=== PATIENT | female | born 1935 | race Caucasian/White ===

== ENCOUNTER 2024-02-27 14:11 | Outpatient (CLI) | payer MEDICARE, SELFPAY ==
--- NOTE | 2024-02-27 14:30 | ECG_ITS ---
Test Date: 2024-02-27 14:40:03 Measurements Intervals [place] Rate: 66 P: 0 NH: 0 QRS: -48 QRSD: 138 T: 17 QT: 453 QTc: 477 Interpretive Statements SINUS RHYTHM WITH SINUS ARRHYTHMIA WITH FIRST DEGREE AV BLOCK NONDUCTED ATRIAL PREMATURE COMPLEXES RIGHT BUNDLE BRANCH BLOCK LEFT ANTERIOR FASCICULAR BLOCK VOLTAGE CRITERIA FOR LVH ABNORMAL ECG No previous ECG available for comparison Electronically Signed On 02-27-2024 15:07:54 CDT by Oli Iqbal D.O.
== END 2024-02-27 14:12 | disposition home or self-care (01) ==
PROVIDERS: PCP Family Medicine; Visit Provider Nurse Practitioner
DX: I49.8 Other specified cardiac arrhythmias (principal); I44.0 Atrioventricular block, first degree; I49.1 Atrial premature depolarization; I45.2 Bifascicular block; R00.1 Bradycardia, unspecified
CPT/HCPCS: 93005

== ENCOUNTER 2025-02-28 19:59 | Inpatient (IN) | payer MEDICARE, SELFPAY ==
--- NOTE | ~2025-02-28 | XR_ITS ---
Examination: XR hip LT 2V w AP pelvis, XR knee LT 3V, XR femur LT min 2V Clinical History: fall, trauma Comparison: None Technique: 2 views left hip with AP pelvis, 2 views left femur 4 films, 3 views left knee Findings/impression: Left hip with AP pelvis: 1. Left hip prosthesis intact without periprosthetic fracture. 2. No acute pelvic fracture noted. 3. Single view right hip demonstrates prosthesis without periprosthetic fracture. Left femur: 1. No fracture. 2. Peripheral arterial disease. Left knee: 1. Suprapatellar joint effusion. 2. Knee arthroplasty intact without periprosthetic fracture. 3. Otherwise no acute abnormality. Reviewed, dictated and finalized at location R.
--- NOTE | ~2025-02-28 | XR_ITS ---
EXAMINATION: XR knee LT min 4V DATE: 03/03/2025 12:54 INDICATION: Distal left femoral fracture TECHNIQUE: AP, internal and externally rotated oblique, lateral and sunrise views of the left knee were obtained. COMPARISON: CT dated 03/02/25 FINDINGS: Again seen is a noncemented left total knee arthroplasty without patellar resurfacing which appears well seated in near-anatomic alignment. No periprosthetic lucency to suggest loosening. Approximately 8 mm lateral displacement of a fracture involving the lateral nonarticular portion of the lateral femoral condyle. No other fractures identified. Moderate-sized left knee joint effusion. A previously seen layering fat fluid level is no longer appreciated. Soft tissue swelling subcutaneous edema at the lateral aspect of the knee. IMPRESSION: 1. Left total knee arthroplasty with periprosthetic fracture at the distal left femur with 8 mm lateral displacement of the fragment of the nonarticular lateral surface of the lateral femoral condyle. No evident lucency along the interface between the bone and the femoral component of the arthroplasty to suggest loosening. Reviewed, dictated and finalized at location A. IMPRESSION: 1. Left total knee arthroplasty with periprosthetic fracture at the distal left femur with 8 mm lateral displacement of the fragment of the nonarticular later al surface of the lateral femoral condyle. No evident lucency along the interfa ce between the bone and the femoral component of the arthroplasty to suggest lo osening.
--- NOTE | ~2025-02-28 | CT_ITS ---
EXAMINATION: CT lumbar spine wo con COMPARISON: None HISTORY: possible fx TECHNIQUE: Axial images were obtained through the spine without IV contrast. Coronal, sagittal reconstruction images were obtained from the axial views. CT scan performed using dose optimization techniques including the following automated exposure control; adjustment of mA and/or kV; use of iterative reconstruction technique. Automatic exposure control was used to reduce radiation dose. Permanent radiation dose record is archived to PACS. FINDINGS: Mild levoconvex scoliosis. Grade 1 anterolisthesis of L4 on L5, grade 1 retrolisthesis of L5 on S1 with bilateral pedicle screws and rods fixating L5, L4 and L3, the hardware is intact with no lucency around the screws with disc prostheses at these levels. There is severe loss of disc height at L5-S1 and L1-2 as well as L2-3 with moderate to severe canal and foraminal stenosis from disc osteophyte complex and facet hypertrophy. Soft tissues demonstrate cholelithiasis. Trace pleural effusions and infiltrates noted.Large hiatal hernia. Impression: No acute fracture. Severe degenerative changes. Reviewed, dictated and finalized at location P. Impression: No acute fracture. Severe degenerative changes.
--- NOTE | ~2025-02-28 | XR_ITS ---
EXAMINATION: XR chest 2V, 03/01/2025 10:10 CDT HISTORY: Pacemaker lead placement, PLACED 4 DAYS AGO COMPARISON: No comparisons available. Technique: 2 views obtained. Findings: Mild pulmonary venous congestion. No pneumothorax. Mild cardiomegaly. Mediastinal and hilar contours are within normal limits. Bony thorax no acute abnormality. Left pacemaker. Impression: Mild CHF. No pneumothorax Reviewed, dictated and finalized at location P. Impression: Mild CHF. No pneumothorax
--- NOTE | ~2025-02-28 | CT_ITS ---
EXAMINATION: CT LE LT wo con DATE: 03/02/2025 11:54 INDICATION: Trauma TECHNIQUE: High resolution computed tomography (CT) of the left lower limb from above the hip through the proximal calf was performed without intravenous contrast. Additional sagittal and coronal reconstructions were performed. Automated exposure control and iterative reconstruction technique were employed. The dose-length product was 1163.14 mGy-cm. COMPARISON: Radiograph dated 02/28/2025 FINDINGS: Noncemented left total hip arthroplasty a noncemented left total knee arthroplasty, both which appears well seated in near-anatomic alignment with no periprosthetic lucency to suggest loosening or infection. Moderate-sized layering lipohemarthrosis at the left knee consistent with likely fracture with intra-articular extension. There is some increased density suspicious for hemorrhage during cephalad within the intramedullary space of the distal femoral metaphysis suggesting occult periprosthetic fracture of the distal femur. Assessment for fracture is however limited in the immediate vicinity of the knee and hip arthroplasties by dense metallic streak artifact. On axial series 4, image 183 there appears to be 2 cortical lines at the same level along the lateral margin of the femoral condyle which is suspicious for fracture. No other lesions suspicious for fracture identified. Scarring in the subcutaneous tissues of the anterior left pelvis of indeterminate etiology. Coarse calcifications in the uterus likely related to degenerated uterine fibroids. Visualized portion of the bladder and bowels are unremarkable. No pathologically enlarged left pelvic or inguinal lymphadenopathy. IMPRESSION: 1. Moderate sized lipohemarthrosis at the left knee and small amount of intramedullary blood within the distal left femur with suspicion for mildly displaced fracture at the lateral femoral condyle. Assessment is however significantly limited at this location due to metallic streak artifact from the left total knee arthroplasty. Would consider repeat radiographs of the left knee including oblique and sunrise projections. Reviewed, dictated and finalized at location A. IMPRESSION: 1. Moderate sized lipohemarthrosis at the left knee and small amount of intrame dullary blood within the distal left femur with suspicion for mildly displaced fracture at the lateral femoral condyle. Assessment is however significantly li mited at this location due to metallic streak artifact from the left total knee arthroplasty. Would consider repeat radiographs of the left knee including obl ique and sunrise projections.
[2025-02-28 20:04] VITALS: BP 123/58; PULSE 70; RESP 18; TEMP 37.1; O2SAT 93
--- NOTE | 2025-02-28 20:29 | ED.FALL ---
HPI - Fall General Chief Complaint: Fall Stated Complaint: GLF; L knee pain Time Seen by Provider: 02/28/25 20:04 History of Present Illness HPI Narrative: Patient is an 89-year-old female who presents emergency department this evening status post a ground level fall. Patient states that she fell and landed on her left side after tripping over a rug. Did not hit her head, did not lose any consciousness. Patient is complaining of some pain to her right hip/femur/knee otherwise denies any additional injuries or concerns. Related Data Home Medications ?Medication ?Instructions ?Recorded ?Confirmed ?Last Taken ?Type calcium carbonate 500 mg PO TID PRN indigestion 05/17/24 12/22/24 05/17/24 02:55 History 1,000 mg dexlansoprazole 60 mg 60 mg PO BID 05/17/24 12/22/24 Unknown History capsule,biphase delayed release (Dexilant) fluticasone propionate 50 2 spray intranasal DAILY 05/17/24 12/22/24 05/17/24 09:05 History mcg/actuation nasal 2 spray spray,suspension (24 Hour Allergy Relief) latanoprost 0.005 % eye drops 1 drp RIGHT EYE QPM 05/17/24 12/22/24 05/16/24 20:05 History 1 drp Allergies Allergy/AdvReac Type Severity Reaction Status Date / Time No Known Allergies Allergy Verified 08/25/24 13:08 Review of Systems Review of Systems: All systems are reviewed and are negative unless stated otherwise in the HPI. [facility] Past Medical History Medical History Shortness of breath Hypertension Hiatal hernia Glaucoma Fatigue Surgical History Surgical History H/O eye surgery History of back surgery Family History Family History Unknown Cancer Diabetes mellitus Heart disease Social History Social History Smoking status: Never smoker Second hand tobacco smoke exposure: No Alcohol intake: never Substance use: never Substance use type: does not use Do You Feel Safe in your Home?: Yes Lack of Transportation: YES Lack of Food: Never True Current Housing: I Have Housing Concerned About Future Housing: No Difficulty Paying Gas/Electric Bills: No Difficulty Paying for Meds: No Currently Unemployed: YES Education: Bachelor's Degree Difficulty w/ Childcare or Family Care: No Spiritual care concerns: No Exam Narrative: General: Alert, awake, afebrile, in no acute distress. HEENT: PERRL, no rhinorrhea, no post nasal drip, oropharynx clear. Neck: Trachea midline, no JVD, no lymphadenopathy. Cardiovascular: Regular rate and rhythm, no murmurs, rubs or gallops, no peripheral edema. Respiratory: Clear to auscultation bilaterally, no tachypnea, no wheezing, no rhonchi, no rubs, no respiratory distress. Abdomen: Soft, nontender, nondistended, no rebound, no guarding, no peritoneal signs. Musculoskeletal: No joint swelling or deformity specifically to the left lower extremity, normal muscle tone, intact bilateral hip flexors and knee extensors. Skin: No rashes or petechia, no signs of infection. Psychiatric: Alert and oriented, normal behavior and judgment for situation. Neurological: Alert and oriented to person, place, and time. Follows all commands. No focal deficits, speech is clear and fluent. Course Vital Signs Vital signs: Vital Signs Temperature 98.7 F 02/28/25 20:04 Pulse Rate 70 02/28/25 20:04 Respiratory Rate 18 02/28/25 20:04 Blood Pressure 123/58 L 02/28/25 20:04 Pulse Oximetry 93 02/28/25 20:04 Oxygen Delivery Room Air 02/28/25 20:04 Temperature 98.5 F 02/28/25 22:13 Pulse Rate 67 02/28/25 22:13 Respiratory Rate 18 02/28/25 22:13 Blood Pressure 104/56 L 02/28/25 23:36 Pulse Oximetry 94 02/28/25 23:36 Oxygen Delivery Room Air 02/28/25 20:04 MDM - Fall MDM Narrative Medical decision making narrative: The patient was evaluated by myself in the emergency department. History is obtained from patient who is an independent historian and physical exam was performed. External medical records were reviewed at this time. Imaging studies obtained included left hip with AP pelvis, left femur and left knee x-rays which was independently interpreted by me revealing no acute process, which is pending final radiology interpretation. Differential diagnosis considerations include fractures, dislocations, musculoskeletal strain. Comorbidities impacting this visit include none. I have evaluated and discussed social determinants of health with the patient that could potentially impact subsequent diagnosis and treatment plans. On repeat assessment of the patient, reevaluation revealed that the patient is doing well and is in no acute distress. Patient symptoms have improved since she arrived to our emergency department. Patient failed ambulatory trial using a walker, states that she is too weak and giving that her left upper extremity is in a sling, difficult for her to use the walker. Repeat vital signs were all reviewed and noted to be stable. Differential diagnosis and treatment plan were discussed with the patient at bedside. Patient agrees with discussion and after shared medical decision making agrees with admission. All questions were answered to the patient's satisfaction. Case was discussed with the on-call hospitalist Dr. Hester accepted admission for PT/OT as patient is unable to ambulate. Lab Data 02/28/25 23:03 02/28/25 23:03 Labs: Lab Results 02/28/25 Range/Units 23:03 WBC 12.5 H (4.5-10.0) K/mm3 RBC 4.42 (4.2-5.4) M/mm3 Hgb 14.1 (12.0-15.0) g/dL Hct 42.5 (37.0-47.0) % MCV 96.2 (80-100) fl MCH 31.9 (26-34) pg MCHC 33.2 (32-36) g/dl RDW 12.8 (11.5-14.5) % Plt Count 339 (150-375) k/mm3 MPV 10.6 H (7.4-10.4) fl Immature Gran % (Auto) 0.6 H (0-0.5) % Neut % (Auto) 74.2 H (45.5-73.1) % Lymph % (Auto) 10.4 L (18.3-44.2) % [place] % (Auto) 13.2 H (2.6-8.5) % Eos % (Auto) 1.0 (0-4.4) % Baso % (Auto) 0.6 (0.2-1.2) % Lymph # (Auto) 1.29 (0.9-3.2) K/mm3 [place] # (Auto) 1.6 H (0.1-0.6) K/mm3 Eos # (Auto) 0.1 (0-0.3) K/mm3 Baso # (Auto) 0.1 (0.0-0.1) K/mm3 Abs Immat Gran (auto) 0.07 H (0.00-0.031) K/mm3 Absolute Neuts (auto) 9.2 H (1.3-6.7) K/mm3 Absolute Nucleated RBC 0.000 (0.0-0.012) K/mm3 Nucleated RBC % 0.0 (0.0-0.2) % Sodium 124 L (137-145) mmol/L Potassium 4.5 (3.4-5.0) mmol/L Chloride 91 L (98-107) mmol/L Carbon Dioxide 21 L (22-30) mmol/L Anion Gap 12 (4-12) mmol/L BUN 19 H (7-17) mg/dL Creatinine 1.03 H (0.7-1.0) mg/dL Estim Creat Clear Calc 39 ml/min Estimated GFR 51 L (59 - ) Glucose 108 (65-110) mg/dL Calcium 9.9 (8.4-10.2) mg/dL Magnesium 1.8 (1.6-2.3) mg/dL Total Bilirubin 0.9 (0.2-1.3) mg/dL AST 45 H (14-36) U/L ALT 28 (6-35) U/L Alkaline Phosphatase 73 (38-126) U/L Total Protein 7.1 (6.3-8.2) g/dL Albumin 4.0 (3.5-5.1) g/dL Discharge Plan Discharge Clinical Impression: Fall from ground level, Contusion of hip, left Patient Disposition: Still a Patient Condition: Improved Instructions: Fall Prevention for Older Adults (ED) Additional Instructions: Please follow-up with your family doctor within the next 3-5 days. Return to ED if any new or worsening symptoms develop. Patient Language: Korean Prescriptions: No Action loperamide [Anti-Diarrheal (loperamide)] 2 mg tablet 2 mg PO Q6H PRN (Reason: loose stool) Qty: 90 3RF cholestyramine (with sugar) [Questran] 4 gram powder 4 g PO BID Qty: 60 11RF Rx Instructions: administer w/meal; avoid other meds within 1hr before or 4-6hr after dose Dissolve in 8 oz of liquid and drink before a meal latanoprost 0.005 % drops 1 drp RIGHT EYE QPM Rx Instructions: Administer 1 drop into the right eye nightly calcium carbonate 500 mg calcium (1,250 mg) tablet 500 mg PO TID PRN (Reason: indigestion) dexlansoprazole [Dexilant] 60 mg capsule,biphase delayed releas 60 mg PO BID fluticasone propionate [24 Hour Allergy Relief] 50 mcg/actuation spray,suspension 2 spray intranasal DAILY Rx Instructions: administer into each nostril melatonin 3 mg Tablet 9 mg PO HS Qty: 30 0RF atorvastatin 40 mg tablet 40 mg PO HS Qty: 30 0RF brinzolamide [Azopt] 1 % drops,suspension 1 drp RIGHT EYE BID Qty: 30 0RF lisinopril 20 mg tablet 20 mg PO DAILY Qty: 30 0RF clopidogrel 75 mg tablet 75 mg PO DAILY Qty: 30 0RF Rx Instructions: GIVE FOR TOTAL OF 18 DOSES. aspirin 81 mg tablet,delayed release (DR/EC) 81 mg PO DAILY Qty: 30 0RF Follow-up/Referrals: Harms,Long Vásquez M.D. [Primary Care Provider] - 3 Days Time of Disposition: 21:38
--- NOTE | 2025-02-28 22:05 | PC.NURSE ---
Pt stating she is in pain and is having a bad day. Requested pain meds for patient.
[2025-02-28 22:13] VITALS: BP 105/55; PULSE 67; RESP 18; TEMP 36.9; O2SAT 97
[2025-02-28] MEDS: IBUPROFEN 600 MG TABLET PO (22:17)
[2025-02-28] MEDS: ACETAMINOPHEN 500 MG TABLET 1000 MG PO (22:18)
[2025-02-28 23:03] VITALS: BP 109/62; O2SAT 95
[2025-02-28 23:15] LABS: Hematocrit 42.5 % (37.0-47.0); Hemoglobin 14.1 g/dL (12.0-15.0); Immature Granulocyte Percent A 0.6 % (0-0.5); Lymphocytes Absolute Auto 1.29 K/mm3 (0.9-3.2); Mean Corpuscular HGB Conc 33.2 g/dl (32-36); Mean Corpuscular Hemoglobin 31.9 pg (26-34); Mean Corpuscular Volume 96.2 fl (80-100); Nucleated Red Blood Cells Absolute Auto 0.000 K/mm3 (0.0-0.012); Nucleated Red Blood Cells Perc 0.0 % (0.0-0.2); Platelet Count Result 339 k/mm3 (150-375); Red Blood Count 4.42 M/mm3 (4.2-5.4); White Blood Count 12.5 K/mm3 (4.5-10.0)
[2025-02-28 23:32] LABS: Alanine Aminotransferase 28 U/L (6-35); Albumin Level 4.0 g/dL (3.5-5.1); Alkaline Phosphatase 73 U/L (38-126); Anion Gap 12 mmol/L (4-12); Aspartate Amino Transferase 45 U/L (14-36); Bilirubin,Total 0.9 mg/dL (0.2-1.3); Blood Urea Nitrogen 19 mg/dL (7-17); Calcium 9.9 mg/dL (8.4-10.2); Carbon Dioxide 21 mmol/L (22-30); Chloride 91 mmol/L (98-107); Estimated CRCL calculation 39 ml/min; Estimated Glomerular Filt Rate 51; Glucose 108 mg/dL (65-110); Magnesium 1.8 mg/dL (1.6-2.3); Potassium 4.5 mmol/L (3.4-5.0); Sodium 124 mmol/L (137-145); Total Protein 7.1 g/dL (6.3-8.2)
[2025-02-28 23:36] VITALS: BP 104/56; O2SAT 94
[2025-02-28] MEDS: SODIUM CHLORIDE 0.9% IV 1,000 ML 999 ML IV CONT (23:49)
[2025-03-01] VITALS (9 sets, daily range): BP systolic 102–152; BP diastolic 55–73; PULSE 76–107; RESP 18–20; TEMP 36.1–36.6; O2SAT 94–96; BMI 29.7; BMI 10.0
--- NOTE | 2025-03-01 00:21 | ECG_ITS ---
Test Date: 2025-03-01 00:42:10 Measurements Intervals [place] Rate: 87 P: 93 MD: 167 QRS: -53 QRSD: 149 T: 138 QT: 418 QTc: 505 Interpretive Statements SINUS RHYTHM WITH OCCASIONAL SUPRAVENTRICULAR PREMATURE COMPLEXES INTRAVENTRICULAR CONDUCTION DELAY [130+ ms QRS DURATION] INFERIOR MYOCARDIAL INFARCTION , PROBABLY OLD [40+ ms Q WAVE AND/OR ST/T ABNORMALITY IN II/aVF] Electronically Signed On 03-01-2025 06:20:09 CDT by Carlos Manuel Bahkta M.D.
--- NOTE | 2025-03-01 01:02 | PC.NURSE ---
Spoke with the patient's , Ady Rothman, who reported that the pain in her left hip and knee originated during her time at [facility] and was not a result of the fall. He stated that while she was exiting the bathroom and attempted to bear weight, her knee gave way, leading to a subsequent fall.
--- NOTE | 2025-03-01 01:27 | ADMGEN ---
This patient, Daisha Rothman, was admitted to Medical Room 249-01. Patient/family oriented to hospital policies and general routines including ID bracelet, bed and alarms, visiting hours, pain management, procedures, bathroom and other care routines, personal items, smoking policy, room service/diet, and visiting hours. Information on how to activate the Rapid Response Team has been discussed. Patient/Family are encouraged to report perceived risks to care and to ask questions if they do not understand what they are told or what they should do.
[2025-03-01] MEDS: ACETAMINOPHEN 325 MG TABLET 650 MG PO ×2 (02:06→20:40)
[2025-03-01 05:56] LABS: Anion Gap 11 mmol/L (4-12); Blood Urea Nitrogen 21 mg/dL (7-17); Calcium 9.2 mg/dL (8.4-10.2); Carbon Dioxide 20 mmol/L (22-30); Chloride 94 mmol/L (98-107); Estimated CRCL calculation 35 ml/min; Estimated Glomerular Filt Rate 46; Glucose 88 mg/dL (65-110); Potassium 4.3 mmol/L (3.4-5.0); Sodium 125 mmol/L (137-145)
--- NOTE | 2025-03-01 06:10 | PM.IMHP ---
H&P: HPI History of Present Illness Date/Time: 03/01/25 06:10 Chief Complaint: Left leg and hip pain after falling Narrative: Histrionic 89-year-old female with past medical history of recent pacemaker insertion for what sounds like high degree AV block at [facility] 02/27/2025, CVA (2023), vascular dementia, essential hypertension, glaucoma, GERD, IBS with diarrhea and chronic gait instability ambulates with a walker fell at home. The patient tripped over a rug and landed on her left side. She is complaining of ?severe pain? in the left hip and leg. The she reports that the pain hurts from her anterior and lateral thigh all the way down to her toes. She can not not describe the pain to me and states that it just hurts. When the patient was sitting upright she initially cried out when I was touching her lateral hip area around the area of the trochanter and just inferior to the groin. She was even crying out with me just brushing my hand against her leg. Whenever I had the nursing staff tell me reposition her to where she was laying on her side so I could evaluate her lumbar spine I was able to palpate about [address] the patient's leg before even eliciting any pain both lateral and anterior thigh. She denies any back pain or any radiation the pain down her buttock or into her posterior leg. She states that she did hit her head but did not lose consciousness. She is not on blood thinners. She has not had any shortness of breath or chest pain. She has not had cough or congestion. She reports chronic urinary frequency but is not yet produced urine. She reports that she is usually has diarrhea with her irritable bowel syndrome but has not had a bowel movement in a while. She is unable to tell me an exact time frame for when she had her last bowel movement. She denies any abdominal pain. The patient is alert oriented person place and time into the fact that if she fell. But she has difficulty describing timing of other events and has difficulty with word finding. When discussing hospitalizations and when she is seen a physician she is frequently getting her hospitalization for when she had a stroke in 2023 confused with her hospitalization for her pacemaker that was reportedly day before yesterday. She reports that she has not had anything to eat for 2 or 3 days. She reports she has no appetite. She denies any nausea or vomiting. Nursing staff tried to call the patient's for more information but he was also a difficult historian. As such the majority of history was obtained from review of past medical records, external medical records and ER physician report. Review of Systems Review of Systems: Twelve point review of systems was attempted but limited as patient is a poor historian. 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 Hypertension Hiatal hernia Glaucoma Surgical History Surgical History (Updated 03/01/25 @ 06:29 by Naye Hester DO) Status post cataract extraction of both eyes with insertion of intraocular lens H/O eye surgery History of back surgery Family History Family History Unknown Cancer Diabetes mellitus Heart disease Social History Social History (Updated 03/01/25 @ 06:41 by Naye Hester DO) Social History: Code status: DNR/DNI (per patient request) Surrogate decision maker: Smoking status: Never smoker Second hand tobacco smoke exposure: No Alcohol intake: never Substance use: never Substance use type: does not use Do You Feel Safe in your Home?: Yes Lack of Transportation: No Lack of Food: Never True Current Housing: I Have Housing Concerned About Future Housing: No Difficulty Paying Gas/Electric Bills: No Difficulty Paying for Meds: No Currently Unemployed: No Education: Bachelor's Degree Difficulty w/ Childcare or Family Care: No Spiritual care concerns: No Meds Home Medications and Allergies Home Medications ?Medication ?Instructions ?Recorded ?Confirmed ?Type calcium carbonate 500 mg PO TID PRN indigestion 05/17/24 03/01/25 History dexlansoprazole 60 mg 60 mg PO BID 05/17/24 03/01/25 History capsule,biphase delayed release (Dexilant) latanoprost 0.005 % eye drops 1 drp RIGHT EYE QPM 05/17/24 03/01/25 History aspirin 81 mg tablet,delayed 81 mg PO DAILY #30 tabs 05/25/24 03/01/25 Rx release atorvastatin 40 mg tablet 40 mg PO HS #30 tabs 05/25/24 03/01/25 Rx brinzolamide 1 % eye 1 drp RIGHT EYE BID #30 mL 05/25/24 03/01/25 Rx drops,suspension (Azopt) melatonin 3 mg tablet 9 mg (3 x 3 mg) PO HS #30 tabs 05/25/24 03/01/25 Rx loperamide 2 mg tablet 2 mg PO Q6H PRN loose stool #90 08/25/24 03/01/25 Rx (Anti-Diarrheal (loperamide)) tabs cholestyramine (with sugar) 4 gram 4 g PO BID #60 grams 12/23/24 03/01/25 Rx oral powder (Questran) lisinopril 20 mg tablet 10 mg PO DAILY 03/01/25 03/01/25 History Allergies Allergy/AdvReac Type Severity Reaction Status Date / Time No Known Allergies Allergy Verified 08/25/24 13:08 Vital Signs Vital Signs - 24 hr 02/28/25 20:04 02/28/25 22:13 02/28/25 23:03 Temperature 98.7 F 98.5 F Pulse Rate 70 67 Respiratory Rate 18 18 Blood Pressure 123/58 L 105/55 L 109/62 Pulse Oximetry 93 97 95 Oxygen Delivery Room Air 02/28/25 23:36 03/01/25 00:44 03/01/25 01:00 Temperature Pulse Rate Respiratory Rate Blood Pressure 104/56 L 135/73 130/71 Pulse Oximetry 94 96 95 Oxygen Delivery 03/01/25 01:33 03/01/25 04:00 Temperature 97.3 F L 97.6 F Pulse Rate 98 89 Respiratory Rate 20 20 Blood Pressure 102/60 152/60 H Pulse Oximetry 95 96 Oxygen Delivery Exam Narrative: Weight 86.1 kg BMI 29.7 Const: Other: When I arrived to the room patient is snoring quite loudly and soundly, his well-developed well-nourished, appears stated age HENMT: Other: Upper and lower dentures in place, mucous membranes are tacky, no oral pharyngeal erythema Eyes: Other: Pupils are equal and reactive, bilateral lens implants noted, no scleral icterus, no conjunctival pallor Neck: Other: No JVD, no lymphadenopathy Chest: Other: Pacemaker palpated in the left upper chest with surgical glue, no surrounding erythema or warmth Resp: Other: Clear to auscultation bilaterally, no increased work of breathing Cardio: Other: Regular rate, regular rhythm, 2+ bilateral radial pedal pulses, no murmur GI: Other: Soft, nontender, nondistended, positive bowel sounds : Other: Pure wick catheter in place with no urine in the VAC canister Skin: Other: No jaundice, no pallor, varicose veins to the lateral mid thigh on the left leg, no obvious bruising or bleeding to the hip or leg, some scattered bruising to the arms Neuro: Other: Patient is alert oriented person place time and the fact that she fell but she is a poor historian regarding timeline of events, she has expressive aphasia and seems to somewhat frequently substitute some words, she has 3/5 strength on the left and 4/5 strength on right head host/hostess strength she states that she cannot move her left leg at all due to pain with movement but does have intact sensation of all extremities Extrem: Other: No obvious bruising or bleeding she does have surgical scars over the left knee left lateral posterior hip that go along with her history of hip replacement and left knee replacement Psych: Other: Histrionic and anxious but otherwise pleasant and cooperative, fair judgment and insight H&P: Results Labs Labs: Hip x-ray, pelvis x-ray and femur x-ray personally reviewed and interpreted. Radiologic interpretation pending. No acute process bilateral hip replacements noted in appropriate position no obvious periprosthetic fractures, left knee replacement with no evidence of fracture, small suprapatellar effusion question Assessment and Plan Assessment and plan (1) Fall from ground level: Code(s): W18.30XA - Fall on same level, unspecified, initial encounter Status: Acute (2) Contusion of hip, left: Qualifiers: Encounter type: initial encounter Qualified Code(s): S70.02XA - Contusion of left hip, initial encounter Code(s): S70.02XA - Contusion of left hip, initial encounter Status: Acute (3) Vascular dementia: Qualifiers: Dementia severity: mild Dementia behavioral or psychological symptom: with anxiety Qualified Code(s): F01.A4 - Vascular dementia, mild, with anxiety Code(s): F01.50 - Vascular dementia, unspecified severity, without behavioral disturbance, psychotic disturbance, mood disturbance, and anxiety Status: Acute (4) CKD (chronic kidney disease): Code(s): N18.9 - Chronic kidney disease, unspecified Status: Acute (5) Intractable pain: Code(s): R52 - Pain, unspecified Status: Acute Plan Patient has intractable pain in her been thigh after fall but her exam is somewhat variable. I think a lot of the patient's pain may also be associated with some anxiety regarding full. Will give the patient a dose of Toradol 15 mg IV x1. Will provide [place] as needed for severe pain. Will provide ice pack to the lateral hip and knee. Will consult PT and OT for evaluation. Will consult care coordination for assistance as the patient may need rehab placement as it sounds like the patient's may have some difficulties of his own. Will resume the patient's home Patient does have a history of hypertension but blood pressures are within expected target range for patient's age. Will continue patient's home lisinopril. Will resume patient's home GERD and medications for irritable Celia and glaucoma. Patient has been admitted as observation status. MEDICAL DECISION MAKING NARRATIVE -Spoke with the ED provider in detail regarding patient's evaluation, workup and management -Patient seen and examined at bedside -Collaborated with patient's nurse at the bedside in detail and addressed all concerns -Labs, electrolytes, radiology, investigations and test results personally reviewed and interpreted unless otherwise specified -ED/Consult/Nursing/Ancilliary notes on the chart reviewed and appreciated -Spoke with patient at bedside and diagnosis and plan of care was discussed. All questions answered. Quality VTE Prophylaxis VTE prophylaxis: mechanical ordered (SCDs) Hospitalist MIPS Advance Care Plan I have confirmed that the patient's Advanced Care Plan is present, code status is documented, or surrogate decision maker is listed in patient medical record.: Yes Medication Reconciliation I have utilized all available resources to obtain, update and review the patients current medications (includes all prescriptions, OTC, herbals, cannabis, and nutritional supplements).: Yes
[2025-03-01 06:22] LABS: Thyroid Stimulating Hormone Reflex 1.970 uIU/mL (0.465-4.68)
[2025-03-01] MEDS: SODIUM CHLORIDE 0.9% IV 1,000 ML 100 ML IV CONT ×2 (06:30→20:39)
[2025-03-01] MEDS: KETOROLAC 15 MG/ML VIAL (*BKC) IV PUSH (06:36)
[2025-03-01] MEDS: SODIUM CHLORIDE 0.9% IV 1,000 ML 500 ML IV CONT (06:49)
--- NOTE | 2025-03-01 07:27 | PM.IMPN ---
Progress Note: A&P Assessment and Plan (1) Fall from ground level: Code(s): W18.30XA - Fall on same level, unspecified, initial encounter Status: Acute Assessment and Plan: XR L femur: no fracture, peripheral arterial disease XR L hip: Left hip prosthesis intact without periprosthetic fracture. No acute pelvic fracture noted. XR L knee: Suprapatellar joint effusion. Knee arthroplasty intact without periprosthetic fracture. Ground level mechanical fall C/o intractable pain in left thigh Toradol 15mg IV one time dose upon admission PRN norco for pain relief Ice pack to lateral left knee/hip PT/OT evals - max assist x2 w/ bed mobility, further services indicated Consult care coordination regarding possible SNF Consider ortho consult (2) Contusion of hip, left: Qualifiers: Encounter type: initial encounter Qualified Code(s): S70.02XA - Contusion of left hip, initial encounter Code(s): S70.02XA - Contusion of left hip, initial encounter Status: Acute Assessment and Plan: See above (3) Intractable pain: Code(s): R52 - Pain, unspecified Status: Acute Assessment and Plan: See above (4) Acute hyponatremia: Code(s): E87.1 - Hypo-osmolality and hyponatremia Status: Acute Assessment and Plan: Upon admission - Na 124 03/01: Na 125 Unsure of etiology Continue continuous IVF hydration w/ NS Monitor daily labs (5) Hypertension: Code(s): I10 - Essential (primary) hypertension Status: Acute Assessment and Plan: Patient's blood pressure was reviewed on 03/01 Blood pressure remains well controlled Will continue current medications (6) CKD (chronic kidney disease): Code(s): N18.9 - Chronic kidney disease, unspecified Status: Acute Assessment and Plan: Creatinine: 1.13, GFR: 46, BUN: 21 Trend renal function Trend electrolytes, correct as needed (7) Vascular dementia: Qualifiers: Dementia behavioral or psychological symptom: with anxiety Dementia severity: mild Qualified Code(s): F01.A4 - Vascular dementia, mild, with anxiety Code(s): F01.50 - Vascular dementia, unspecified severity, without behavioral disturbance, psychotic disturbance, mood disturbance, and anxiety Status: Acute Subjective Date/time seen: 03/01/25 07:27 Interval history: 89-year-old female with past medical history of recent pacemaker insertion for what sounds like high degree AV block at [facility] 02/27/2025, CVA (2023), vascular dementia, essential hypertension, glaucoma, GERD, IBS with diarrhea and chronic gait instability ambulates with a walker fell at home. 03/01/2025 Patient sitting comfortably in bed at time examination. Denies any chest pain, shortness on breath, nausea/vomiting or abdominal pain. Endorses left knee and left hip pain with movement but at rest feels comfortable. Consult orthopedics regarding persistent knee/hip pain as PT/OT was unable to work with the patient due to extreme levels of pain. Review of Systems Review of Systems: Twelve point review of systems was attempted but limited as patient is a poor historian. Exam Narrative: Weight 86.1 kg BMI 29.7 Const: General: comfortable and no acute distress HENMT: Other: Upper and lower dentures in place, mucous membranes are tacky, no oral pharyngeal erythema Eyes: Other: Pupils are equal and reactive, bilateral lens implants noted, no scleral icterus, no conjunctival pallor Neck: Other: No JVD, no lymphadenopathy Chest: Other: Pacemaker palpated in the left upper chest with surgical glue, no surrounding erythema or warmth Resp: Other: Clear to auscultation bilaterally, no increased work of breathing Cardio: Other: Regular rate, regular rhythm, 2+ bilateral radial pedal pulses, no murmur GI: Other: Soft, nontender, nondistended, positive bowel sounds : Other: Pure wick catheter in place with no urine in the VAC canister Skin: Other: No jaundice, no pallor, varicose veins to the lateral mid thigh on the left leg, no obvious bruising or bleeding to the hip or leg, some scattered bruising to the arms Neuro: Other: Patient is alert oriented person place time and the fact that she fell but she is a poor historian regarding timeline of events, she has expressive aphasia and seems to somewhat frequently substitute some words, she has 3/5 strength on the left and 4/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 on 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 she states that she cannot move her left leg at all due to pain with movement but does have intact sensation of all extremities Extrem: Other: No obvious bruising or bleeding she does have surgical scars over the left knee left lateral posterior hip that go along with her history of hip replacement and left knee replacement Psych: Other: Histrionic and anxious but otherwise pleasant and cooperative, fair judgment and insight Objective Data Vital Signs Vital Signs: Vital Signs - 24 hr 02/28/25 20:04 02/28/25 22:13 02/28/25 23:03 Temperature 98.7 F 98.5 F Pulse Rate 70 67 Respiratory Rate 18 18 Blood Pressure 123/58 L 105/55 L 109/62 Pulse Oximetry 93 97 95 Oxygen Delivery Room Air 02/28/25 23:36 03/01/25 00:44 03/01/25 01:00 Temperature Pulse Rate Respiratory Rate Blood Pressure 104/56 L 135/73 130/71 Pulse Oximetry 94 96 95 Oxygen Delivery 03/01/25 01:33 03/01/25 04:00 Temperature 97.3 F L 97.6 F Pulse Rate 98 89 Respiratory Rate 20 20 Blood Pressure 102/60 152/60 H Pulse Oximetry 95 96 Oxygen Delivery Intake/Output Intake/Output: Intake & Output 02/26/25 02/27/25 02/28/25 03/01/25 23:59 23:59 23:59 23:59 Intake Total 1120 Balance 1120 Meds/Results Medications: Active Medications Generic Name Dose Route Start Last Admin Trade Name Freq PRN Reason Stop Dose Admin Acetaminophen 650 mg 03/01/25 00:26 03/01/25 02:06 Acetaminophen 325 Mg Tablet PO 650 mg Q4H PRN Administration Mild Pain (1-3) or Fever Hydrocodone Bitart/Acetaminophen 1 tab 03/01/25 06:49 Hydrocodone/Acetaminophen (*Crx) 5-325 Mg Tablet PO Q6H PRN Pain Rated 7-10 Aspirin 81 mg 03/01/25 09:00 Aspirin 81 Mg Enteric Tablet PO DAILY OTIS Atorvastatin Calcium 40 mg 03/01/25 21:00 Atorvastatin 40 Mg Tablet PO HS OTIS Brinzolamide 1 drop 03/01/25 09:00 Brinzolamide 1% Ophth Susp 10 Ml RIGHT EYE Q12HR [facility] Calcium Carbonate 500 mg 03/01/25 02:53 Calcium Carbonate (Oscal) 500 Mg Tablet PO TID PRN Indigestion Cholestyramine Resin 4 gm 03/01/25 09:00 Cholestyramine (W/ Sugar) 4 Gm Powd.Pack PO BID [facility] Sodium Chloride 1,000 mls @ 100 mls/hr 03/01/25 06:25 03/01/25 06:30 Normal Saline Iv IV CONT 100 mls/hr .Q10H OTIS Administration Sodium Chloride 1,000 mls @ 500 mls/hr 03/01/25 06:45 03/01/25 06:49 Normal Saline Iv IV CONT 03/01/25 08:44 500 mls/hr .Q2H ONE Administration Latanoprost 1 drop 03/01/25 21:00 Latanoprost 0.005% Op Soln 2.5 Ml Btl RIGHT EYE QHS OTIS Lisinopril 10 mg 03/01/25 09:00 Lisinopril 10 Mg Tablet PO DAILY OTIS Loperamide HCl 2 mg 03/01/25 02:53 Loperamide Hcl 2 Mg Capsule PO Q6H PRN Loose Stool Melatonin 9 mg 03/01/25 21:00 Melatonin 3 Mg Tablet PO HS [facility] Pantoprazole Sodium 40 mg 03/01/25 09:00 Pantoprazole 40 Mg Tablet PO Q12HR [facility] Labs Labs: Laboratory Results - last 24 hr 02/28/25 03/01/25 23:03 04:48 WBC 12.5 H RBC 4.42 Hgb 14.1 Hct 42.5 MCV 96.2 MCH 31.9 MCHC 33.2 RDW 12.8 Plt Count 339 MPV 10.6 H Immature Gran % (Auto) 0.6 H Neut % (Auto) 74.2 H Lymph % (Auto) 10.4 L [place] % (Auto) 13.2 H Eos % (Auto) 1.0 Baso % (Auto) 0.6 Lymph # (Auto) 1.29 [place] # (Auto) 1.6 H Eos # (Auto) 0.1 Baso # (Auto) 0.1 Abs Immat Gran (auto) 0.07 H Absolute Neuts (auto) 9.2 H Absolute Nucleated RBC 0.000 Nucleated RBC % 0.0 Sodium 124 L 125 L Potassium 4.5 4.3 Chloride 91 L 94 L Carbon Dioxide 21 L 20 L Anion Gap 12 11 BUN 19 H 21 H Creatinine 1.03 H 1.13 H Estim Creat Clear Calc 39 35 Estimated GFR 51 L 46 L Glucose 108 88 Calcium 9.9 9.2 Magnesium 1.8 Total Bilirubin 0.9 AST 45 H ALT 28 Alkaline Phosphatase 73 Total Protein 7.1 Albumin 4.0 TSH (Reflex) 1.970 Quality VTE Prophylaxis VTE prophylaxis: mechanical ordered (SCDs)
[2025-03-01 07:52] LABS: Hematocrit 38.4 % (37.0-47.0); Hemoglobin 12.6 g/dL (12.0-15.0); Immature Granulocyte Percent A 0.5 % (0-0.5); Lymphocytes Absolute Auto 1.00 K/mm3 (0.9-3.2); Mean Corpuscular HGB Conc 32.8 g/dl (32-36); Mean Corpuscular Hemoglobin 32.1 pg (26-34); Mean Corpuscular Volume 98.0 fl (80-100); Nucleated Red Blood Cells Absolute Auto 0.000 K/mm3 (0.0-0.012); Nucleated Red Blood Cells Perc 0.0 % (0.0-0.2); Platelet Count Result 297 k/mm3 (150-375); Red Blood Count 3.92 M/mm3 (4.2-5.4); White Blood Count 12.7 K/mm3 (4.5-10.0)
[2025-03-01] MEDS: CHOLESTYRAMINE (W/ SUGAR) 4 GM POWD.PACK PO (09:17)
[2025-03-01] MEDS: PANTOPRAZOLE 40 MG TABLET PO ×2 (09:17→20:40)
[2025-03-01] MEDS: HYDROcodone/acetaminophen (*CRX) 5-325 MG TABLET 1 TAB PO ×2 (09:17→16:12)
[2025-03-01] MEDS: CALCIUM CARBONATE (OSCAL) 500 MG TABLET PO (09:17)
[2025-03-01] MEDS: ASPIRIN 81 MG ENTERIC TABLET PO (09:17)
[2025-03-01] MEDS: BRINZOLAMIDE 1% OPHTH SUSP 10 ML 1 DROP RIGHT EYE ×2 (09:18→20:43)
[2025-03-01 16:03] LABS: Add Urine Microscopic? YES; Appearance Urine Cloudy (Clear); Glucose Urine UA Negative (Negative); Leukocyte Esterase Ur Negative LEU/UL (Negative); Nitrate Urine Negative (Negative); Specific Grav Ur 1.019 (1.001-1.035)
[2025-03-01] MEDS: MAGNESIUM OXIDE 200 MG TABLET PO (20:40)
[2025-03-01] MEDS: ATORVASTATIN 40 MG TABLET PO (20:40)
[2025-03-01] MEDS: MELATONIN 3 MG TABLET 9 MG PO (20:40)
[2025-03-01] MEDS: LATANOPROST 0.005% OP SOLN 2.5 ML BTL 1 DROP RIGHT EYE (20:43)
[2025-03-02] VITALS (8 sets, daily range): BP systolic 102–176; BP diastolic 48–90; PULSE 78–100; RESP 16–24; TEMP 36.3–37.2; O2SAT 90–97
[2025-03-02] MEDS: HYDROcodone/acetaminophen (*CRX) 5-325 MG TABLET 1 TAB PO ×3 (04:31→18:03)
--- NOTE | 2025-03-02 07:37 | P.PNIM_ITS ---
Progress Note: A&P Assessment and Plan (1) Fall from ground level: Code(s): W18.30XA - Fall on same level, unspecified, initial encounter Status: Acute Assessment and Plan: * XR L femur: no fracture, peripheral arterial disease * XR L hip: Left hip prosthesis intact without periprosthetic fracture. No acute pelvic fracture noted. * XR L knee: Suprapatellar joint effusion. Knee arthroplasty intact without periprosthetic fracture. * Ground level mechanical fall * C/o intractable pain in left thigh * Toradol 15mg IV one time dose upon admission * PRN norco for pain relief * Ice pack to lateral left knee/hip * PT/OT evals - max assist x2 w/ bed mobility, further services indicated * Consult care coordination regarding possible SNF * Orthopedics consult * Recommend left knee/hip CT scan, lumbar spine CT * Determine weight-bearing status after this * Pain management * Lower extremity CT: Moderate sized lipohemarthrosis at the left knee and small amount of intramedullary blood within the distal left femur with suspicion for mildly displaced fracture at the lateral femoral condyle. Assessment is however significantly limited at this location due to metallic streak artifact from the left total knee arthroplasty. Would consider repeat radiographs of the left knee including oblique and sunrise projections. * Lumbar spine CT: No acute fracture, severe degenerative changes * Will get repeat left knee CT scan with oblique and sunrise right projections (2) Contusion of hip, left: Qualifiers: Encounter type: initial encounter Qualified Code(s): S70.02XA - Contusion of left hip, initial encounter Code(s): S70.02XA - Contusion of left hip, initial encounter Status: Acute Assessment and Plan: * See above (3) Intractable pain: Code(s): R52 - Pain, unspecified Status: Acute Assessment and Plan: * See above (4) Acute hyponatremia: Code(s): E87.1 - Hypo-osmolality and hyponatremia Status: Acute Assessment and Plan: * Upon admission - Na 124 * 03/02: Na 124 * Unsure of etiology * Continue continuous IVF hydration w/ NS * Monitor daily labs * Nephrology consult (5) Hypertension: Code(s): I10 - Essential (primary) hypertension Status: Acute Assessment and Plan: * Patient's blood pressure was reviewed on 03/01 * Blood pressure remains well controlled * Will continue current medications (6) CKD (chronic kidney disease): Code(s): N18.9 - Chronic kidney disease, unspecified Status: Acute Assessment and Plan: * Creatinine: 1.13, GFR: 46, BUN: 21 * Trend renal function * Trend electrolytes, correct as needed (7) Vascular dementia: Qualifiers: Dementia behavioral or psychological symptom: with anxiety Dementia severity: mild Qualified Code(s): F01.A4 - Vascular dementia, mild, with anxiety Code(s): F01.50 - Vascular dementia, unspecified severity, without behavioral disturbance, psychotic disturbance, mood disturbance, and anxiety Status: Acute Subjective Date/time seen: 03/02/25 07:37 Interval history: 89-year-old female with past medical history of recent pacemaker insertion for what sounds like high degree AV block at [facility] 02/27/2025, CVA (2023), vascular dementia, essential hypertension, glaucoma, GERD, IBS with diarrhea and chronic gait instability ambulates with a walker fell at home. 03/02/2025 Patient sitting comfortably in bed at time examination. Denies any chest pain, shortness on breath, nausea/vomiting or abdominal pain. Orthopedics consulted, recommend CT of the left extremity/hip. Continue PT/OT - recommend SNF . Review of Systems Review of Systems: Twelve point review of systems was attempted but limited as patient is a poor historian. Exam Narrative: Weight 86.1 kg BMI 29.7 Const: General: comfortable and no acute distress Other: When I arrived to the room patient is snoring quite loudly and soundly, his well-developed well-nourished, appears stated age HENMT: Other: Upper and lower dentures in place, mucous membranes are tacky, no oral pharyngeal erythema Eyes: Other: Pupils are equal and reactive, bilateral lens implants noted, no scleral icterus, no conjunctival pallor Neck: Other: No JVD, no lymphadenopathy Chest: Other: Pacemaker palpated in the left upper chest with surgical glue, no surrounding erythema or warmth Resp: Other: Clear to auscultation bilaterally, no increased work of breathing Cardio: Other: Regular rate, regular rhythm, 2+ bilateral radial pedal pulses, no murmur GI: Other: Soft, nontender, nondistended, positive bowel sounds : Other: Pure wick catheter in place with no urine in the VAC canister Skin: Other: No jaundice, no pallor, varicose veins to the lateral mid thigh on the left leg, no obvious bruising or bleeding to the hip or leg, some scattered bruising to the arms Neuro: Other: Patient is alert oriented person place time and the fact that she fell but she is a poor historian regarding timeline of events, she has expressive aphasia and seems to somewhat frequently substitute some words, she has 3/5 strength on the left and 4/5 strength on right clinical education coordinator strength she states that she cannot move her left leg at all due to pain with movement but does have intact sensation of all extremities Extrem: Other: No obvious bruising or bleeding she does have surgical scars over the left knee left lateral posterior hip that go along with her history of hip replacement and left knee replacement Psych: Other: Histrionic and anxious but otherwise pleasant and cooperative, fair judgment and insight Objective Data Vital Signs Vital Signs: Vital Signs - 24 hr 03/01/25 08:00 03/01/25 09:15 03/01/25 11:20 Temperature 97.7 F Pulse Rate 85 Respiratory Rate 18 Blood Pressure 143/73 H Pulse Oximetry 96 Oxygen Delivery Room Air Room Air Fraction of Inspired Oxygen 03/01/25 11:43 03/01/25 12:00 03/01/25 16:00 Temperature 97.9 F 97 F L Pulse Rate 77 76 Respiratory Rate 18 18 Blood Pressure 143/55 H 135/66 Pulse Oximetry 94 95 Oxygen Delivery Room Air Fraction of Inspired Oxygen 03/01/25 20:00 03/01/25 20:00 03/01/25 21:30 Temperature 97.7 F Pulse Rate 76 107 H 80 Respiratory Rate 18 20 Blood Pressure 152/56 H Pulse Oximetry 95 95 95 Oxygen Delivery Room Air Room Air Fraction of Inspired Oxygen 21 03/02/25 00:00 03/02/25 04:00 Temperature 98.1 F 98.1 F Pulse Rate 82 100 Respiratory Rate 16 24 H Blood Pressure 149/48 H 168/63 H Pulse Oximetry 97 94 Oxygen Delivery Fraction of Inspired Oxygen Intake/Output Intake/Output: Intake & Output 02/27/25 02/28/25 03/01/25 03/02/25 23:59 23:59 23:59 23:59 Intake Total 3840 140 Output Total 150 850 Balance 3690 -710 Meds/Results Medications: Active Medications Generic Name Dose Route Start Last Admin Trade Name Freq PRN Reason Stop Dose Admin Acetaminophen 650 mg 03/01/25 00:26 03/01/25 20:40 Acetaminophen 325 Mg Tablet PO 650 mg Q4H PRN Administration Mild Pain (1-3) or Fever Hydrocodone Bitart/Acetaminophen 1 tab 03/01/25 06:49 03/02/25 04:31 Hydrocodone/Acetaminophen (*Crx) 5-325 Mg Tablet PO 1 tab Q6H PRN Administration Pain Rated 7-10 Ascorbic Acid 1,000 mg 03/02/25 09:00 Ascorbic Acid 500 Mg Tablet PO QAM OTIS Aspirin 81 mg 03/01/25 09:00 03/01/25 09:17 Aspirin 81 Mg Enteric Tablet PO 81 mg DAILY OTIS Administration Atorvastatin Calcium 40 mg 03/01/25 21:00 03/01/25 20:40 Atorvastatin 40 Mg Tablet PO 40 mg HS OTIS Administration Brinzolamide 1 drop 03/01/25 09:00 03/01/25 20:43 Brinzolamide 1% Ophth Susp 10 Ml RIGHT EYE 1 drop Q12HR OTIS Administration Calcium Carbonate 500 mg 03/01/25 13:22 Calcium Carbonate (Tums) 500 Mg (200 Mg Elemental) PO TID PRN Indigestion Cholestyramine Resin 4 gm 03/01/25 09:00 03/01/25 16:15 Cholestyramine (W/ Sugar) 4 Gm Powd.Pack PO Not Given BID OTIS Fluticasone Propionate 2 spray 03/02/25 09:00 Fluticasone Propionate 0.05% Na Spr 16 Gm Btl (*Bkc) NASAL DAILY OTIS Sodium Chloride 1,000 mls @ 100 mls/hr 03/01/25 06:25 03/01/25 20:39 Normal Saline Iv IV CONT 100 mls/hr .Q10H OTIS Administration Latanoprost 1 drop 03/01/25 21:00 03/01/25 20:43 Latanoprost 0.005% Op Soln 2.5 Ml Btl RIGHT EYE 1 drop QHS OTIS Administration Lisinopril 10 mg 03/01/25 09:00 03/01/25 09:17 Lisinopril 10 Mg Tablet PO 10 mg DAILY TOIS Administration Loperamide HCl 2 mg 03/01/25 02:53 Loperamide Hcl 2 Mg Capsule PO Q6H PRN Loose Stool Magnesium Oxide 200 mg 03/01/25 21:00 03/01/25 20:40 Magnesium Oxide 200 Mg Tablet PO 200 mg HS OTIS Administration Melatonin 9 mg 03/01/25 21:00 03/01/25 20:40 Melatonin 3 Mg Tablet PO 9 mg HS OTIS Administration Non-Formulary Medication 1 each 03/01/25 13:20 Nonformulary Nutritional Supplement XX 03/02/25 13:19 PRN PRN PROTOCOL Non-Formulary Medication 1 each 03/01/25 13:20 Nonformulary Nutritional Supplement XX 03/02/25 13:19 PRN PRN PROTOCOL Pantoprazole Sodium 40 mg 03/01/25 09:00 03/01/25 20:40 Pantoprazole 40 Mg Tablet PO 40 mg Q12HR OTIS Administration Vitamin B Complex 1 cap 03/01/25 13:20 03/01/25 13:20 Vitamin B Complex Capsule PO Not Given 1200 OTIS Vitamin E 1 unit 03/01/25 13:20 03/01/25 13:20 Vitamin E 400 Unit Capsule PO Not Given DAILY OTIS Radiology Results: ITS Impressions Chest X-Ray 03/01/25 10:28 Impression: Mild CHF. No pneumothorax Labs Labs: Laboratory Results - last 24 hr 03/01/25 03/01/25 04:48 15:47 WBC 12.7 H RBC 3.92 L Hgb 12.6 Hct 38.4 MCV 98.0 MCH 32.1 MCHC 32.8 RDW 12.8 Plt Count 297 MPV 11.4 H Immature Gran % (Auto) 0.5 Neut % (Auto) 76.6 H Lymph % (Auto) 7.9 L Charlton % (Auto) 13.2 H Eos % (Auto) 1.2 Baso % (Auto) 0.6 Lymph # (Auto) 1.00 Charlton # (Auto) 1.7 H Eos # (Auto) 0.2 Baso # (Auto) 0.1 Abs Immat Gran (auto) 0.07 H Absolute Neuts (auto) 9.8 H Absolute Nucleated RBC 0.000 Nucleated RBC % 0.0 Urine Color Dark yellow Urine Appearance Cloudy H Urine pH 5.0 Ur Specific Arp 1.019 Urine Protein 1+ H Urine Glucose (UA) Negative Urine Ketones Trace H Ur Blood (Man) Negative Urine Nitrate Negative Urine Bilirubin 1+ H Urine Urobilinogen 0.2 Leukocyte Esterase Rfl Negative Urine RBC 0-2 Urine WBC 0-5 Ur Squamous Epith Cells Few Urine Bacteria None seen Urine Casts 3-5 Quality VTE Prophylaxis VTE prophylaxis: mechanical ordered (SCDs)
[2025-03-02 07:48] LABS: Hematocrit 33.8 % (37.0-47.0); Hemoglobin 11.1 g/dL (12.0-15.0); Immature Granulocyte Percent A 0.5 % (0-0.5); Lymphocytes Absolute Auto 1.01 K/mm3 (0.9-3.2); Mean Corpuscular HGB Conc 32.8 g/dl (32-36); Mean Corpuscular Hemoglobin 32.0 pg (26-34); Mean Corpuscular Volume 97.4 fl (80-100); Nucleated Red Blood Cells Absolute Auto 0.000 K/mm3 (0.0-0.012); Nucleated Red Blood Cells Perc 0.0 % (0.0-0.2); Platelet Count Result 277 k/mm3 (150-375); Red Blood Count 3.47 M/mm3 (4.2-5.4); White Blood Count 12.8 K/mm3 (4.5-10.0)
[2025-03-02 08:10] LABS: Alanine Aminotransferase 22 U/L (6-35); Albumin Level 3.1 g/dL (3.5-5.1); Alkaline Phosphatase 68 U/L (38-126); Anion Gap 7 mmol/L (4-12); Aspartate Amino Transferase 42 U/L (14-36); Bilirubin,Total 0.8 mg/dL (0.2-1.3); Blood Urea Nitrogen 17 mg/dL (7-17); Calcium 8.3 mg/dL (8.4-10.2); Carbon Dioxide 21 mmol/L (22-30); Chloride 96 mmol/L (98-107); Estimated CRCL calculation 56 ml/min; Estimated Glomerular Filt Rate > 60; Glucose 90 mg/dL (65-110); Potassium 4.1 mmol/L (3.4-5.0); Sodium 124 mmol/L (137-145); Total Protein 5.9 g/dL (6.3-8.2)
[2025-03-02] MEDS: ASCORBIC ACID 500 MG TABLET 1000 MG PO (08:24)
[2025-03-02] MEDS: PANTOPRAZOLE 40 MG TABLET PO ×2 (08:24→20:58)
[2025-03-02] MEDS: ASPIRIN 81 MG ENTERIC TABLET PO (08:24)
[2025-03-02] MEDS: BRINZOLAMIDE 1% OPHTH SUSP 10 ML 1 DROP RIGHT EYE ×2 (08:25→21:01)
[2025-03-02] MEDS: VITAMIN E 400 UNIT CAPSULE PO ×2 (08:41→08:45)
[2025-03-02] MEDS: CHOLESTYRAMINE (W/ SUGAR) 4 GM POWD.PACK PO (10:24)
--- NOTE | 2025-03-02 11:06 | PM.CNOR ---
Assessment and Plan Assessment and plan (1) Contusion of hip, left: Qualifiers: Encounter type: initial encounter Qualified Code(s): S70.02XA - Contusion of left hip, initial encounter Code(s): S70.02XA - Contusion of left hip, initial encounter Status: Acute Plan The patient is an 89-year-old female who presents today with left hip and left knee pain with radiation of the same pain all the way down to her ankle. The patient was admitted on March 012024 with pain after falling at home. She was trying to go from her bathroom to the living room and tripped over the threshold and landed onto her left buttock. She has had bilateral total hip replacements and bilateral total knee replacements under the past. She has had no problems with this recently until her recent fall. She was admitted for cardiac issues, and the workup so far has been negative. She does have also a significant history for lumbar spine fusion surgery done in the past. She's had no pain and no problems with this until her fall with regards to pain into her left hip, left knee, and radiates down into her left ankle. X-ray evaluation of the left hip as well as the left knee were negative for fractures. Implants appear to be in good position. Based on my physical exam today, this patient has findings that are consistent with radiculopathy. However, she does have significant effusion into the left knee. She is tender to palpation on most parts of her left lower extremity, and she is unable to move her left leg without significant pain radiating down into her ankle. She's also somewhat tender over her lumbar spine, and I was able to reproduce the radiation of pain simply by palpation of her paraspinal musculature on the left side with her lumbar spine palpation. Treatment recommendation at this point is to rule out periprosthetic fracture. I would recommend a left knee CT scan and a left hip CT scan as well as a lumbar spine CT scan. We will determine her weight-bearing status after this. At this point in time, it is a matter of pain management. History of Present Illness HPI Consult date: 03/02/25 Chief complaint: Left Knee and Left Hip Pain Narrative: The patient is an 89-year-old female who presents today with left hip and left knee pain with radiation of the same pain all the way down to her ankle. The patient was admitted on March 012024 with pain after falling at home. She was trying to go from her bathroom to the living room and tripped over the threshold and landed onto her left buttock. She has had bilateral total hip replacements and bilateral total knee replacements under the past. She has had no problems with this recently until her recent fall. She was admitted for cardiac issues, and the workup so far has been negative. She does have also a significant history for lumbar spine fusion surgery done in the past. She's had no pain and no problems with this until her fall with regards to pain into her left hip, left knee, and radiates down into her left ankle. X-ray evaluation of the left hip as well as the left knee were negative for fractures. Implants appear to be in good position. Based on my physical exam today, this patient has findings that are consistent with radiculopathy. However, she does have significant effusion into the left knee. She is tender to palpation on most parts of her left lower extremity, and she is unable to move her left leg without significant pain radiating down into her ankle. She's also somewhat tender over her lumbar spine, and I was able to reproduce the radiation of pain simply by palpation of her paraspinal musculature on the left side with her lumbar spine palpation. Treatment recommendation at this point is to rule out paraprosthetic fracture. I would recommend a left knee CT scan and a left hip CT scan as well as a lumbar spine CT scan. We will determine her weight-bearing status after this. At this point in time, it is a matter of pain management. 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 Hypertension Hiatal hernia Glaucoma Surgical History Surgical History (Updated 03/01/25 @ 06:29 by Naye Hester DO) Status post cataract extraction of both eyes with insertion of intraocular lens H/O eye surgery History of back surgery Family History Family History Unknown Cancer Diabetes mellitus Heart disease Social History Social History (Updated 03/01/25 @ 06:41 by JUNG Chen Social History: Code status: DNR/DNI (per patient request) Surrogate decision maker: Smoking status: Never smoker Second hand tobacco smoke exposure: No Alcohol intake: never Substance use: never Substance use type: does not use Do You Feel Safe in your Home?: Yes Lack of Transportation: No Lack of Food: Never True Current Housing: I Have Housing Concerned About Future Housing: No Difficulty Paying Gas/Electric Bills: No Difficulty Paying for Meds: No Currently Unemployed: No Education: Bachelor's Degree Difficulty w/ Childcare or Family Care: No Spiritual care concerns: No Meds Home Medications and Allergies Home Medications ?Medication ?Instructions ?Recorded ?Confirmed ?Type calcium carbonate 500 mg PO TID PRN indigestion 05/17/24 03/01/25 History dexlansoprazole 60 mg 60 mg PO BID 05/17/24 03/01/25 History capsule,biphase delayed release (Dexilant) latanoprost 0.005 % eye drops 1 drp RIGHT EYE QPM 05/17/24 03/01/25 History aspirin 81 mg tablet,delayed 81 mg PO DAILY #30 tabs 05/25/24 03/01/25 Rx release atorvastatin 40 mg tablet 40 mg PO HS #30 tabs 05/25/24 03/01/25 Rx brinzolamide 1 % eye 1 drp RIGHT EYE BID #30 mL 05/25/24 03/01/25 Rx drops,suspension (Azopt) melatonin 3 mg tablet 9 mg (3 x 3 mg) PO HS #30 tabs 05/25/24 03/01/25 Rx loperamide 2 mg tablet 2 mg PO Q6H PRN loose stool #90 08/25/24 03/01/25 Rx (Anti-Diarrheal (loperamide)) tabs cholestyramine (with sugar) 4 gram 4 g PO BID #60 grams 12/23/24 03/01/25 Rx oral powder (Questran) ascorbic acid (vitamin C) 1,000 mg 1 g PO 1200 03/01/25 03/01/25 History capsule calcium citrate 500 mg (2,376 mg) 500 mg PO 1200 03/01/25 03/01/25 History effervescent tablet flaxseed oil 1,000 mg capsule 1,000 mg PO HS 03/01/25 03/01/25 History fluticasone propionate 50 2 spray intranasal DAILY 03/01/25 03/01/25 History mcg/actuation nasal spray,suspension lisinopril 20 mg tablet 10 mg PO DAILY 03/01/25 03/01/25 History magnesium 200 mg tablet 300 mg PO HS 03/01/25 03/01/25 History potassium 99 mg tablet 99 mg PO DAILY 03/01/25 03/01/25 History vit A 300 mcg-C 200 mg-E 27 1 tablet PO BID 03/01/25 03/01/25 History fa-luqzqcmj-vfzazp-lutein tablet vitamin B complex 1 tablet PO 1200 03/01/25 03/01/25 History vitamin E 268 mg (400 unit) capsule 268 mg PO DAILY 03/01/25 03/01/25 History Allergies Allergy/AdvReac Type Severity Reaction Status Date / Time No Known Allergies Allergy Verified 08/25/24 13:08 Vital Signs Vital Signs - 24 hr 03/01/25 11:20 03/01/25 11:43 03/01/25 12:00 Temperature 36.6 C Pulse Rate 77 Respiratory Rate 18 Blood Pressure 143/55 H Pulse Oximetry 94 Oxygen Delivery Room Air Room Air Fraction of Inspired Oxygen 03/01/25 16:00 03/01/25 20:00 03/01/25 20:00 Temperature 36.1 C L 36.5 C Pulse Rate 76 76 107 H Respiratory Rate 18 18 20 Blood Pressure 135/66 152/56 H Pulse Oximetry 95 95 95 Oxygen Delivery Room Air Fraction of Inspired Oxygen 03/01/25 21:30 03/02/25 00:00 03/02/25 04:00 Temperature 36.7 C 36.7 C Pulse Rate 80 82 100 Respiratory Rate 16 24 H Blood Pressure 149/48 H 168/63 H Pulse Oximetry 95 97 94 Oxygen Delivery Room Air Fraction of Inspired Oxygen 21 03/02/25 07:51 03/02/25 08:00 03/02/25 08:20 Temperature 37.2 C Pulse Rate 98 96 Respiratory Rate 22 H Blood Pressure 138/53 L 176/90 H Pulse Oximetry 95 Oxygen Delivery Room Air Fraction of Inspired Oxygen Exam Narrative: physical exam today, this patient has findings that are consistent with radiculopathy. However, she does have significant effusion into the left knee. She is tender to palpation on most parts of her left lower extremity, and she is unable to move her left leg without significant pain radiating down into her ankle. She's also somewhat tender over her lumbar spine, and I was able to reproduce the radiation of pain simply by palpation of her paraspinal musculature on the left side with her lumbar spine palpation. Const: General: cooperative, healthy appearing, well developed, alert and awake Nutritional Appearance: average body habitus Orientation/consciousness: oriented to person, oriented to place and oriented to time Results Labs 03/02/25 07:39 03/02/25 07:39 Labs: Abnormal lab results 03/01/25 03/02/25 Range/Units 15:47 07:39 WBC 12.8 H (4.5-10.0) K/mm3 RBC 3.47 L (4.2-5.4) M/mm3 Hgb 11.1 L (12.0-15.0) g/dL Hct 33.8 L (37.0-47.0) % Neut % (Auto) 73.4 H (45.5-73.1) % Lymph % (Auto) 7.9 L (18.3-44.2) % Charlton % (Auto) 15.5 H (2.6-8.5) % Charlton # (Auto) 2.0 H (0.1-0.6) K/mm3 Abs Immat Gran (auto) 0.07 H (0.00-0.031) K/mm3 Absolute Neuts (auto) 9.4 H (1.3-6.7) K/mm3 Sodium 124 L (137-145) mmol/L Chloride 96 L (98-107) mmol/L Carbon Dioxide 21 L (22-30) mmol/L Creatinine 0.69 L (0.7-1.0) mg/dL Calcium 8.3 L (8.4-10.2) mg/dL AST 42 H (14-36) U/L Total Protein 5.9 L (6.3-8.2) g/dL Albumin 3.1 L (3.5-5.1) g/dL Urine Appearance Cloudy H (Clear) Urine Protein 1+ H (Negative) mg/dL Urine Ketones Trace H (Negative) mg/dL Urine Bilirubin 1+ H (Negative) H & H 02/28/25 03/01/25 03/02/25 Range/Units 23:03 04:48 07:39 Hgb 14.1 12.6 11.1 L (12.0-15.0) g/dL Hct 42.5 38.4 33.8 L (37.0-47.0) % All other labs normal.
--- NOTE | 2025-03-02 11:22 | PM.CNNEP ---
Assessment and Plan Assessment and plan (1) Hyponatremia: Code(s): E87.1 - Hypo-osmolality and hyponatremia Status: Acute Assessment and Plan: as noted on admission from review of recent hospitalization at [facility], sodium was progressively worsening prior to leaving AMA 138mmol/L on admission (02/20/25) then 137 --> 133 --> 130 --> 129 --> and then 126 (on 02/28/25) possibly due to ongoing/steady free water intake but diminished/poor solid food intake risk factors for low sodium pain pain medications/narcotics PPI use increased free water intake check TSH, cortisol, serum/urine osmolality, and SPEP/UPEP follow I/Os and consider free water restriction may need to consider salt tabs depending on oral intake follow trend of sodium levels (2) Fall from ground level: Code(s): W18.30XA - Fall on same level, unspecified, initial encounter Status: Acute Assessment and Plan: ground level mechanical fall as noted on admission imaging to date noted (03/02): XR L hip: Left hip prosthesis intact without periprosthetic fracture; no acute pelvic fracture noted XR L femur: No fracture but noted peripheral arterial disease XR L knee: Suprapatellar joint effusion; knee arthroplasty intact without periprosthetic fracture Lumbar spine CT: No acute fracture, severe degenerative changes continues with intractable pain in left thigh ongoing PT/OT may need placement (3) 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: Code(s): M97.12XA - 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, initial encounter Status: Acute Assessment and Plan: significant knee pain s/p fall imaging noted lower extremity CT: moderate sized lipohemarthrosis at the left knee and small amount of intramedullary blood within the distal left femur with suspicion for mildly displaced fracture at the lateral femoral condyle; assessment is however significantly limited at this location due to metallic streak artifact from the left total knee arthroplasty Orthopedic Surgery following: repeat plain radiographs knee immobilizer NWB LLE continue nonoperative management for now. pain control (4) Hypertension: Code(s): I10 - Essential (primary) hypertension Status: Acute Assessment and Plan: reasonable control some fluctuations due to pain follow trend of hemodynamics I will continue to follow the patient with you while she remains hospitalized and make further recommendations as deemed necessary. Thank you for allowing me to participate in the care of this patient. History of Present Illness Reason for Consult Consult date: 03/02/25 Reason for consult: hyponatremia Chief Complaint Chief complaint: Left Knee and Left Hip Pain History of Present Illness Narrative: A great majority of the history I have obtained is from review of the electronic medical record as well as discussion with the physician/nurses involved in the patient's care as the patient is a somewhat poor historian and there is no other family available for may to talk to. The patient is a 9-year-old female with a past medical history as outlined below presented to [facility] Emergency Room status post fall. The patient apparently tripped over a rug salt in the fall and landed on her left side. Since this fall, she has been complaining severe intractable pain in the left hip and left leg. His difficult for the patient to elaborate on the extent and significance of her pain. There is no reported head trauma or loss of consciousness following the fall. She denies any other symptoms regard to chest pain, shortness of breath, dizziness, lightheadedness, palpitations, abdominal pain. Given the severity of the pain in her left hip and leg following this fall she presented to the emergency room for further assessment. Workup and evaluation emergency room demonstrated the patient be hemodynamically stable and afebrile but in [id number] distress secondary to pain. Her physical exam did not demonstrate any significant trauma to her left lower extremity or any neurological compromise. Routine blood test early significant for a mildly elevated white blood cell count, sodium level of 124, and a creatinine of 1.03 mg/dL. Imaging of her left lower extremity did not demonstrate any acute pathology or fractures. Pain control was initiated which was successful but the patient was still unable to ambulate and it was felt that she may need placement And further physical and occupational therapy. For this purpose, the patient was admitted to the hospital for further evaluation and therapy. Next Since her admission, the patient's sodium level has remained on the lower side of normal but does not appear to have acutely worsened. She has been seen in consultation by Orthopedic surgery with recommendations for further CT imaging to ensure there is no other pathology to explain her left lower extremity discomfort. Renal consultation was requested due to her acute hyponatremia. It should be noted the patient was just recently discharged from [facility] after a recent pacemaker placement. From review these records her sodium level had been down trending during her hospitalization there and even the day of discharge although she technically was not dicharge as she apparently left against medical advice. Due to her leaving against medical advice, would appear that further investigation with regard to her acute hypernatremia was not done. Her sodium level had down trended to 126 millimoles per L on the day she [facility]. In spite of low sodium level, she does not appear to be symptomatic with regard to this issue. Currently the time my evaluation she appears in no acute distress. Review of Systems Review of Systems: As per HPI. 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 Hypertension Hiatal hernia Glaucoma Schatzki's ring GERD (gastroesophageal reflux disease) Irritable bowel syndrome with diarrhea Surgical History Surgical History (Updated 03/01/25 @ 06:29 by Naye Hester DO) Status post cataract extraction of both eyes with insertion of intraocular lens H/O eye surgery History of back surgery Family History Family History Unknown Cancer Diabetes mellitus Heart disease Social History Social History (Updated 03/01/25 @ 06:41 by Naye Hester DO) Social History: Code status: DNR/DNI (per patient request) Surrogate decision maker: Smoking status: Never smoker Second hand tobacco smoke exposure: No Alcohol intake: never Substance use: never Substance use type: does not use Do You Feel Safe in your Home?: Yes Lack of Transportation: No Lack of Food: Never True Current Housing: I Have Housing Concerned About Future Housing: No Difficulty Paying Gas/Electric Bills: No Difficulty Paying for Meds: No Currently Unemployed: No Education: Bachelor's Degree Difficulty w/ Childcare or Family Care: No Spiritual care concerns: No Meds Home Medications and Allergies Home Medications ?Medication ?Instructions ?Recorded ?Confirmed ?Type calcium carbonate 500 mg PO TID PRN indigestion 05/17/24 03/01/25 History dexlansoprazole 60 mg 60 mg PO BID 05/17/24 03/01/25 History capsule,biphase delayed release (Dexilant) latanoprost 0.005 % eye drops 1 drp RIGHT EYE QPM 05/17/24 03/01/25 History aspirin 81 mg tablet,delayed 81 mg PO DAILY #30 tabs 05/25/24 03/01/25 Rx release atorvastatin 40 mg tablet 40 mg PO HS #30 tabs 05/25/24 03/01/25 Rx brinzolamide 1 % eye 1 drp RIGHT EYE BID #30 mL 05/25/24 03/01/25 Rx drops,suspension (Azopt) melatonin 3 mg tablet 9 mg (3 x 3 mg) PO HS #30 tabs 05/25/24 03/01/25 Rx loperamide 2 mg tablet 2 mg PO Q6H PRN loose stool #90 08/25/24 03/01/25 Rx (Anti-Diarrheal (loperamide)) tabs cholestyramine (with sugar) 4 gram 4 g PO BID #60 grams 12/23/24 03/01/25 Rx oral powder (Questran) ascorbic acid (vitamin C) 1,000 mg 1 g PO 119903/01/25 03/01/25 History capsule calcium citrate 500 mg (2,376 mg) 500 mg PO 119903/01/25 03/01/25 History effervescent tablet flaxseed oil 1,000 mg capsule 1,000 mg PO HS 03/01/25 03/01/25 History fluticasone propionate 50 2 spray intranasal DAILY 03/01/25 03/01/25 History mcg/actuation nasal spray,suspension lisinopril 20 mg tablet 10 mg PO DAILY 03/01/25 03/01/25 History magnesium 200 mg tablet 300 mg PO HS 03/01/25 03/01/25 History potassium 99 mg tablet 99 mg PO DAILY 03/01/25 03/01/25 History vit A 300 mcg-C 200 mg-E 27 1 tablet PO BID 03/01/25 03/01/25 History mc-pansjrsk-tqefsu-lutein tablet vitamin B complex 1 tablet PO 1200 03/01/25 03/01/25 History vitamin E 268 mg (400 unit) capsule 268 mg PO DAILY 03/01/25 03/01/25 History enoxaparin 40 mg/0.4 mL 40 mg (0.4 mL) subcut DAILY 30 03/05/25 Rx subcutaneous syringe (Lovenox) days #12 mL sodium chloride 1,000 mg soluble 1,000 mg PO BID #60 tabs 03/05/25 Rx tablet Allergies Allergy/AdvReac Type Severity Reaction Status Date / Time No Known Allergies Allergy Verified 08/25/24 13:08 Vital Signs Vital Signs Temp Pulse Resp BP Pulse Ox O2 Del Method FiO2 03/02/25 11:21 97.3 F L 96 20 143/64 H 95 03/02/25 08:20 96 176/90 H 03/02/25 08:00 Room Air 03/02/25 07:51 99 F 98 22 H 138/53 L 95 03/02/25 04:00 98.1 F 100 24 H 168/63 H 94 03/02/25 00:00 98.1 F 82 16 149/48 H 97 03/01/25 21:30 80 95 Room Air 21 03/01/25 20:00 97.7 F 107 H 20 152/56 H 95 03/01/25 20:00 76 18 95 Room Air Exam Narrative: GENERAL APPEARANCE: elderly but well developed well nourished female in no acute distress HEENT: normocephalic, atraumatic, normal conjunctiva and sclera, nares patient NECK: no lymphadenopathy, thyromegaly, or JVD MOUTH: normal lips, teeth, and gums CARDIOVASCULAR: RRR, normal S1 and S2, no rub RESPIRATORY: clear to auscultation bilaterally ABDOMEN: soft, nontender, nondistended, positive bowel sounds present EXTREMITIES: no evidence of cyanosis, clubbing, or edema NEUROLOGICAL: alert and oriented x 3; CN II - XII intact bilaterally Results Lab Results 03/05/25 04:39 03/05/25 04:39 Lab results: Most recent lab results Calcium 8.3 mg/dL (8.4-10.2) L 03/02/25 07:39 Magnesium 1.8 mg/dL (1.6-2.3) 02/28/25 23:03
[2025-03-02] MEDS: VITAMIN B COMPLEX CAPSULE 1 CAP PO (13:16)
--- NOTE | 2025-03-02 14:45 | PCPTNOTE ---
The patient treatment was not able to be completed today. Patient received ortho consult and is awaiting further imaging before weight bearing status is determined. Will plan to continue treatment per plan of care.
--- NOTE | 2025-03-02 14:53 | PC.NURSE ---
On 03/02/25, the student, [Debby Jay], provided care and completed [facility] documentation on this patient. I have reviewed the student's documentation and agree with the findings.
[2025-03-02] MEDS: SODIUM CHLORIDE 0.9% IV 1,000 ML 100 ML IV CONT ×2 (15:25→23:47)
[2025-03-02] MEDS: MELATONIN 3 MG TABLET 9 MG PO (20:58)
[2025-03-02] MEDS: ATORVASTATIN 40 MG TABLET PO (20:58)
[2025-03-02] MEDS: MAGNESIUM OXIDE 200 MG TABLET PO (20:58)
[2025-03-02] MEDS: LATANOPROST 0.005% OP SOLN 2.5 ML BTL 1 DROP RIGHT EYE (21:05)
[2025-03-02] MEDS: CALCIUM CARBONATE (TUMS) 500 MG (200 MG ELEMENTAL) PO (22:27)
[2025-03-03] VITALS (7 sets, daily range): BP systolic 126–158; BP diastolic 54–80; PULSE 87–110; RESP 14–16; TEMP 36.5–37; O2SAT 93–97; BMI 29.7
[2025-03-03 02:52] LABS: Total Protein Urine Random 14 mg/dL; Urea Random Urine 600 MG/DL
[2025-03-03 03:03] LABS: Total Protein Urine Random 13 mg/dL; Ur Ttl Prot Creatinine Ratio 0.20 mg/mg (0-0.20)
[2025-03-03 05:32] LABS: Chloride 97 mmol/L (98-107); Potassium 4.3 mmol/L (3.4-5.0); Sodium 123 mmol/L (137-145)
[2025-03-03 05:33] LABS: Alanine Aminotransferase 20 U/L (6-35); Albumin Level 3.0 g/dL (3.5-5.1); Alkaline Phosphatase 54 U/L (38-126); Anion Gap 7 mmol/L (4-12); Aspartate Amino Transferase 38 U/L (14-36); Bilirubin,Total 0.9 mg/dL (0.2-1.3); Blood Urea Nitrogen 15 mg/dL (7-17); Calcium 8.2 mg/dL (8.4-10.2); Carbon Dioxide 19 mmol/L (22-30); Estimated CRCL calculation 63 ml/min; Estimated Glomerular Filt Rate > 60; Glucose 96 mg/dL (65-110); Total Protein 5.8 g/dL (6.3-8.2)
[2025-03-03 05:37] LABS: Hematocrit 31.7 % (37.0-47.0); Hemoglobin 10.4 g/dL (12.0-15.0); Immature Granulocyte Percent A 0.7 % (0-0.5); Lymphocytes Absolute Auto 1.04 K/mm3 (0.9-3.2); Mean Corpuscular HGB Conc 32.8 g/dl (32-36); Mean Corpuscular Hemoglobin 31.8 pg (26-34); Mean Corpuscular Volume 96.9 fl (80-100); Nucleated Red Blood Cells Absolute Auto 0.000 K/mm3 (0.0-0.012); Nucleated Red Blood Cells Perc 0.0 % (0.0-0.2); Platelet Count Result 275 k/mm3 (150-375); Red Blood Count 3.27 M/mm3 (4.2-5.4); White Blood Count 13.5 K/mm3 (4.5-10.0)
[2025-03-03 06:06] LABS: Thyroid Stimulating Hormone Reflex 1.370 uIU/mL (0.465-4.68)
--- NOTE | 2025-03-03 06:43 | P.PNIM_ITS ---
Progress Note: A&P Assessment and Plan (1) Closed left femoral fracture: Code(s): S72.92XA - Unspecified fracture of left femur, initial encounter for closed fracture Status: Acute Assessment and Plan: - having significant knee pain s/p fall -Lower extremity CT: Moderate sized lipohemarthrosis at the left knee and small amount of intramedullary blood within the distal left femur with suspicion for mildly displaced fracture at the lateral femoral condyle. Assessment is however significantly limited at this location due to metallic streak artifact from the left total knee arthroplasty. - orthopedic surgery following - recommended repeat radiographs, knee immobilizer, NWB LLE. Nonoperative management for now. - continue pain control, DVT prophylaxis, PT/OT. Likely will need SNF placement. (2) Fall from ground level: Code(s): W18.30XA - Fall on same level, unspecified, initial encounter Status: Acute Assessment and Plan: -Ground level mechanical fall -XR L hip: Left hip prosthesis intact without periprosthetic fracture. No acute pelvic fracture noted. -XR L knee: Suprapatellar joint effusion. Knee arthroplasty intact without periprosthetic fracture. -Lumbar spine CT: No acute fracture, severe degenerative changes -continues with intractable pain in left thigh -Ice pack to lateral left knee/hip -PT/OT evals - max assist x2 w/ bed mobility, further services indicated -Consult care coordination regarding possible SNF (3) Contusion of hip, left: Qualifiers: Encounter type: initial encounter Qualified Code(s): S70.02XA - Cont usion of left hip, initial encounter Code(s): S70.02XA - Contusion of left hip, initial encounter Status: Acute Assessment and Plan: -See above (4) Acute hyponatremia: Code(s): E87.1 - Hypo-osmolality and hyponatremia Status: Acute Assessment and Plan: -Upon admission - Na 124 - received IV fluids, Na worsened to 123 - likely secondary to poor PO intake. Dietitian consulted. - urine sodium and urine osmolality pending - daily labs -Nephrology consulted, appreciate recs (5) Hypertension: Code(s): I10 - Essential (primary) hypertension Status: Acute Assessment and Plan: -BP stable -Will continue current medications (6) CKD (chronic kidney disease): Code(s): N18.9 - Chronic kidney disease, unspecified Status: Acute Assessment and Plan: -Creatinine: 1.13, GFR: 46, BUN: 21 -Trend renal function -Trend electrolytes, correct as needed (7) Vascular dementia: Qualifiers: Dementia behavioral or psychological symptom: with anxiety Dementia severity: mild Qualified Code(s): F01.A4 - Vascular dementia, mild, with anxiety Code(s): F01.50 - Vascular dementia, unspecified severity, without behavioral disturbance, psychotic disturbance, mood disturbance, and anxiety Status: Acute Assessment and Plan: - delirium precautions Subjective Date/time seen: 03/03/25 06:43 Interval history: 89-year-old female with past medical history of recent pacemaker insertion for what sounds like high degree AV block at [facility] 02/27/2025, CVA (2023), vascular dementia, essential hypertension, glaucoma, GERD, IBS with diarrhea and chronic gait instability ambulates with a walker fell at home. Patient seen and examined at bedside. Still having significant pain. Poor PO intake. Review of Systems Review of Systems: All systems reviewed & are unremarkable except as noted in HPI and below Exam Narrative: General: NAD Eyes: EOMI ENT: neck supple Cardiovascular: Regular rate and rhythm Respiratory: Clear to auscultation, respirations even and unlabored on RA Gastrointestinal: Soft, non tender Genitourinary: no suprapubic tenderness Musculoskeletal: left knee with edema and global pain with palpation Skin: warm, dry Neuro: Alert. Psych: Mood appropriate Objective Data Vital Signs Vital Signs: Vital Signs - 24 hr 03/02/25 07:51 03/02/25 08:00 03/02/25 08:20 Temperature 99 F Pulse Rate 98 96 Respiratory Rate 22 H Blood Pressure 138/53 L 176/90 H Pulse Oximetry 95 Oxygen Delivery Room Air Fraction of Inspired Oxygen 03/02/25 11:41 03/02/25 16:00 03/02/25 20:00 Temperature 97.3 F L 98.3 F 97.6 F Pulse Rate 96 78 86 Respiratory Rate 20 20 16 Blood Pressure 143/64 H 138/50 L 102/56 L Pulse Oximetry 95 95 95 Oxygen Delivery Fraction of Inspired Oxygen 03/02/25 20:32 03/02/25 20:48 03/03/25 00:58 Temperature 98.6 F Pulse Rate 89 87 Respiratory Rate 20 16 Blood Pressure 140/54 L Pulse Oximetry 90 95 Oxygen Delivery Room Air Room Air Fraction of Inspired Oxygen 21 03/03/25 05:58 Temperature 97.9 F Pulse Rate 100 Respiratory Rate 14 Blood Pressure 126/64 Pulse Oximetry 94 Oxygen Delivery Fraction of Inspired Oxygen Intake/Output Intake/Output: Intake & Output 02/28/25 03/01/25 03/02/25 03/03/25 23:59 23:59 23:59 23:59 Intake Total 3840 2623.7 300 Output Total 150 1560 600 Balance 3690 1063.7 -300 Meds/Results Medications: Active Medications Generic Name Dose Route Start Last Admin Trade Name Freq PRN Reason Stop Dose Admin Acetaminophen 650 mg 03/01/25 00:26 03/01/25 20:40 Acetaminophen 325 Mg Tablet PO 650 mg Q4H PRN Administration Mild Pain (1-3) or Fever Hydrocodone Bitart/Acetaminophen 1 tab 03/01/25 06:49 03/02/25 18:03 Hydrocodone/Acetaminophen (*Crx) 5-325 Mg Tablet PO 1 tab Q6H PRN Administration Pain Rated 7-10 Ascorbic Acid 1,000 mg 03/02/25 09:00 03/02/25 08:24 Ascorbic Acid 500 Mg Tablet PO 1,000 mg QAM OTIS Administration Aspirin 81 mg 03/01/25 09:00 03/02/25 08:24 Aspirin 81 Mg Enteric Tablet PO 81 mg DAILY OTIS Administration Atorvastatin Calcium 40 mg 03/01/25 21:00 03/02/25 20:58 Atorvastatin 40 Mg Tablet PO 40 mg HS OTIS Administration Brinzolamide 1 drop 03/01/25 09:00 03/02/25 21:01 Brinzolamide 1% Ophth Susp 10 Ml RIGHT EYE 1 drop Q12HR OTIS Administration Calcium Carbonate 500 mg 03/01/25 13:22 03/02/25 22:27 Calcium Carbonate (Tums) 500 Mg (200 Mg Elemental) PO 500 mg TID PRN Administration Indigestion Cholestyramine Resin 4 gm 03/01/25 09:00 03/02/25 17:17 Cholestyramine (W/ Sugar) 4 Gm Powd.Pack PO Not Given BID OTIS Fluticasone Propionate 2 spray 03/02/25 09:00 03/02/25 08:30 Fluticasone Propionate 0.05% Na Spr 16 Gm Btl (*Bkc) NASAL Not Given DAILY [facility] Sodium Chloride 1,000 mls @ 100 mls/hr 03/01/25 06:25 03/02/25 23:47 Normal Saline Iv IV CONT 100 mls/hr .Q10H OTIS Administration Latanoprost 1 drop 03/01/25 21:00 03/02/25 21:05 Latanoprost 0.005% Op Soln 2.5 Ml Btl RIGHT EYE 1 drop QHS OTIS Administration Lisinopril 10 mg 03/01/25 09:00 03/02/25 08:24 Lisinopril 10 Mg Tablet PO 10 mg DAILY OTIS Administration Loperamide HCl 2 mg 03/01/25 02:53 Loperamide Hcl 2 Mg Capsule PO Q6H PRN Loose Stool Magnesium Oxide 200 mg 03/01/25 21:00 03/02/25 20:58 Magnesium Oxide 200 Mg Tablet PO 200 mg HS OTIS Administration Melatonin 9 mg 03/01/25 21:00 03/02/25 20:58 Melatonin 3 Mg Tablet PO 9 mg HS OTIS Administration Morphine Sulfate 2 mg 03/02/25 15:30 Morphine Sulfate (*Crx) 4 Mg/Ml Inj IV PUSH Q4H PRN Pain Rated 7-10 Pantoprazole Sodium 40 mg 03/01/25 09:00 03/02/25 20:58 Pantoprazole 40 Mg Tablet PO 40 mg Q12HR OTIS Administration Vitamin B Complex 1 cap 03/01/25 13:20 03/02/25 13:16 Vitamin B Complex Capsule PO 1 cap 1200 OTIS Administration Vitamin E 400 unit 03/02/25 09:00 03/02/25 08:45 Vitamin E 400 Unit Capsule PO 400 unit DAILY OTIS Administration Radiology Results: ITS Impressions Chest X-Ray 03/01/25 10:28 Impression: Mild CHF. No pneumothorax Lumbar Spine CT 03/02/25 12:03 Impression: No acute fracture. Severe degenerative changes. Lower Extremity CT 03/02/25 12:06 IMPRESSION: 1. Moderate sized lipohemarthrosis at the left knee and small amount of intramedullary blood within the distal left femur with suspicion for mildly displaced fracture at the lateral femoral condyle. Assessment is however significantly limited at this location due to metallic streak artifact from the left total knee arthroplasty. Would consider repeat radiographs of the left knee including oblique and sunrise projections. Labs Labs: Laboratory Results - last 24 hr 03/02/25 03/03/25 03/03/25 07:39 01:01 01:01 WBC 12.8 H RBC 3.47 L Hgb 11.1 L Hct 33.8 L MCV 97.4 MCH 32.0 MCHC 32.8 RDW 12.7 Plt Count 277 MPV 10.2 Immature Gran % (Auto) 0.5 Neut % (Auto) 73.4 H Lymph % (Auto) 7.9 L Band[place] % (Auto) 15.5 H Eos % (Auto) 2.2 Baso % (Auto) 0.5 Lymph # (Auto) 1.01 Band[place] # (Auto) 2.0 H Eos # (Auto) 0.3 Baso # (Auto) 0.1 Abs Immat Gran (auto) 0.07 H Absolute Neuts (auto) 9.4 H Absolute Nucleated RBC 0.000 Nucleated RBC % 0.0 Sodium 124 L Potassium 4.1 Chloride 96 L Carbon Dioxide 21 L Anion Gap 7 BUN 17 Creatinine 0.69 L Estim Creat Clear Calc 56 Estimated GFR > 60 Glucose 90 Calcium 8.3 L Total Bilirubin 0.8 AST 42 H ALT 22 Alkaline Phosphatase 68 Total Protein 5.9 L Albumin 3.1 L TSH (Reflex) U Random Total Protein 13 14 Ur Random Sodium 72 Ur Random Urea 600 Urine Creatinine 65.0 Protein/Creat Ratio 2 03/03/25 03/03/25 01:01 04:54 WBC 13.5 H RBC 3.27 L Hgb 10.4 L Hct 31.7 L MCV 96.9 MCH 31.8 MCHC 32.8 RDW 12.7 Plt Count 275 MPV 11.4 H Immature Gran % (Auto) 0.7 H Neut % (Auto) 71.3 Lymph % (Auto) 7.7 L Band[place] % (Auto) 18.6 H Eos % (Auto) 1.3 Baso % (Auto) 0.4 Lymph # (Auto) 1.04 Band[place] # (Auto) 2.5 H Eos # (Auto) 0.2 Baso # (Auto) 0.1 Abs Immat Gran (auto) 0.09 H Absolute Neuts (auto) 9.7 H Absolute Nucleated RBC 0.000 Nucleated RBC % 0.0 Sodium 123 L Potassium 4.3 Chloride 97 L Carbon Dioxide 19 L Anion Gap 7 BUN 15 Creatinine 0.60 L Estim Creat Clear Calc 63 Estimated GFR > 60 Glucose 96 Calcium 8.2 L Total Bilirubin 0.9 AST 38 H ALT 20 Alkaline Phosphatase 54 Total Protein 5.8 L Albumin 3.0 L TSH (Reflex) 1.370 U Random Total Protein Ur Random Sodium Ur Random Urea Urine Creatinine 65.9 Protein/Creat Ratio 2 0.20 Quality VTE Prophylaxis VTE prophylaxis: pharmacologic ordered
[2025-03-03] MEDS: ACETAMINOPHEN 325 MG TABLET 650 MG PO (09:27)
[2025-03-03] MEDS: PANTOPRAZOLE 40 MG TABLET PO ×2 (09:27→21:00)
[2025-03-03] MEDS: ASPIRIN 81 MG ENTERIC TABLET PO (09:27)
[2025-03-03] MEDS: CHOLESTYRAMINE (W/ SUGAR) 4 GM POWD.PACK PO ×2 (09:27→16:42)
[2025-03-03] MEDS: ASCORBIC ACID 500 MG TABLET 1000 MG PO (09:27)
[2025-03-03] MEDS: FLUTICASONE PROPIONATE 0.05% NA SPR 16 GM BTL (*BKC) 2 SPRAY NASAL (09:28)
[2025-03-03] MEDS: BRINZOLAMIDE 1% OPHTH SUSP 10 ML 1 DROP RIGHT EYE ×2 (09:28→21:02)
[2025-03-03] MEDS: ENOXAPARIN 40 MG/0.4 ML SYRINGE SUB-Q (11:51)
[2025-03-03] MEDS: VITAMIN B COMPLEX CAPSULE 1 CAP PO (11:53)
--- NOTE | 2025-03-03 12:36 | PC.NURSE ---
Patient is leaving the floor for x-ray.
--- NOTE | 2025-03-03 12:59 | PC.NURSE ---
Patient is back on the floor.
--- NOTE | 2025-03-03 13:52 | P.PNNP_ITS ---
Progress Note: A&P Assessment and Plan (1) Hyponatremia: Code(s): E87.1 - Hypo-osmolality and hyponatremia Status: Acute Assessment and Plan: * as noted on admission * from review of recent hospitalization at [facility], sodium was progressively worsening prior to leaving AMA * 138mmol/L on admission (02/20/25) * then 137 --> 133 --> 130 --> 129 --> and then 126 (on 02/28/25) * possibly due to ongoing/steady free water intake but diminished/poor solid food intake * risk factors for low sodium * pain * pain medications/narcotics * PPI use * increased free water intake * evaluation noted to date: * TSH okay * cortisol not done(?) * SPEP/UPEP with immunofixation pending * serum/urine osmolality pending * follow I/Os and consider free water restriction * start salt tabs * follow trend of sodium levels (2) Fall from ground level: Code(s): W18.30XA - Fall on same level, unspecified, initial encounter Status: Acute Assessment and Plan: * ground level mechanical fall as noted on admission * imaging to date noted (03/02): * XR L hip: Left hip prosthesis intact without periprosthetic fracture; no acute pelvic fracture noted * XR L femur: No fracture but noted peripheral arterial disease * XR L knee: Suprapatellar joint effusion; knee arthroplasty intact without periprosthetic fracture * Lumbar spine CT: No acute fracture, severe degenerative changes * continues with intractable pain in left thigh * ongoing PT/OT * may need placement (3) 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: Code(s): M97.12XA - 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, initial encounter Status: Acute Assessment and Plan: * significant knee pain s/p fall * imaging noted * lower extremity CT: moderate sized lipohemarthrosis at the left knee and small amount of intramedullary blood within the distal left femur with suspicion for mildly displaced fracture at the lateral femoral condyle; assessment is however significantly limited at this location due to metallic streak artifact from the left total knee arthroplasty * repeat L knee x-ray (03/03): Left total knee arthroplasty with periprosthetic fracture at the distal left femur with 8 mm lateral displacement of the fragment of the nonarticular lateral surface of the lateral femoral condyle; no evident lucency along the interface between the bone and the femoral component of the arthroplasty to suggest loosening * Orthopedic surgery following: * radiographs reviewed * knee immobilizer * NWB LLE * continue onoperative management for now. * pain control (4) Hypertension: Code(s): I10 - Essential (primary) hypertension Status: Acute Assessment and Plan: * reasonable control * some fluctuations due to pain * follow trend of hemodynamics Will continue to follow. Subjective Date/time seen: 03/03/25 13:52 Interval history: Follow-up for acute hyponatremia. Still continues to have significant on/off pain in her left lower extremity in assocition with poor oral intake; no other acute issues/events overnight or earlier today. Exam 2 Narrative: General: elderly but WD/WN female in NAD Heart: normal S1 and S2; no rub Lungs: clear to auscultation Abdomen: soft, nontender, nondistended, positive bowel sounds Extremities: no cyanosis or clubbing; no edema Skin: warm and dry Objective Data Vital Signs Vital Signs: Vital Signs Temp Pulse Resp BP Pulse Ox O2 Del Method FiO2 03/03/25 12:00 98.2 F 94 14 149/67 H 96 03/03/25 09:30 Room Air 03/03/25 08:00 97.9 F 110 H 14 155/80 H 95 03/03/25 05:58 97.9 F 100 14 126/64 94 03/03/25 00:58 98.6 F 87 16 140/54 L 95 03/02/25 20:48 Room Air 03/02/25 20:32 89 20 90 Room Air 21 03/02/25 20:00 97.6 F 86 16 102/56 L 95 Intake/Output Intake/Output: Intake & Output 02/28/25 03/01/25 03/02/25 03/03/25 23:59 23:59 23:59 23:59 Intake Total 3840 2623.7 660 Output Total 150 1560 1100 Balance 3690 1063.7 -440 Meds/Results Medications: Active Medications Generic Name Dose Route Start Last Admin Trade Name Freq PRN Reason Stop Dose Admin Acetaminophen 650 mg 03/01/25 00:26 03/03/25 09:27 Acetaminophen 325 Mg Tablet PO 650 mg Q4H PRN Administration Mild Pain (1-3) or Fever Hydrocodone Bitart/Acetaminophen 1 tab 03/01/25 06:49 03/03/25 16:40 Hydrocodone/Acetaminophen (*Crx) 5-325 Mg Tablet PO 1 tab Q6H PRN Administration Pain Rated 7-10 Ascorbic Acid 1,000 mg 03/02/25 09:00 03/03/25 09:27 Ascorbic Acid 500 Mg Tablet PO 1,000 mg QAM OTIS Administration Aspirin 81 mg 03/01/25 09:00 03/03/25 09:27 Aspirin 81 Mg Enteric Tablet PO 81 mg DAILY OTIS Administration Atorvastatin Calcium 40 mg 03/01/25 21:00 03/02/25 20:58 Atorvastatin 40 Mg Tablet PO 40 mg HS OTIS Administration Brinzolamide 1 drop 03/01/25 09:00 03/03/25 09:28 Brinzolamide 1% Ophth Susp 10 Ml RIGHT EYE 1 drop Q12HR OTIS Administration Calcium Carbonate 500 mg 03/01/25 13:22 03/02/25 22:27 Calcium Carbonate (Tums) 500 Mg (200 Mg Elemental) PO 500 mg TID PRN Administration Indigestion Cholestyramine Resin 4 gm 03/01/25 09:00 03/03/25 16:42 Cholestyramine (W/ Sugar) 4 Gm Powd.Pack PO 4 gm BID OTIS Administration Enoxaparin Sodium 40 mg 03/03/25 11:30 03/03/25 11:51 Enoxaparin 40 Mg/0.4 Ml Syringe SUB-Q 40 mg DAILY OTIS Administration Fluticasone Propionate 2 spray 03/02/25 09:00 03/03/25 09:28 Fluticasone Propionate 0.05% Na Spr 16 Gm Btl (*Bkc) NASAL 2 spray DAILY OTIS Administration Latanoprost 1 drop 03/01/25 21:00 03/02/25 21:05 Latanoprost 0.005% Op Soln 2.5 Ml Btl RIGHT EYE 1 drop QHS OTIS Administration Lisinopril 10 mg 03/01/25 09:00 03/03/25 09:27 Lisinopril 10 Mg Tablet PO 10 mg DAILY OTIS Administration Loperamide HCl 2 mg 03/01/25 02:53 Loperamide Hcl 2 Mg Capsule PO Q6H PRN Loose Stool Magnesium Oxide 200 mg 03/01/25 21:00 03/02/25 20:58 Magnesium Oxide 200 Mg Tablet PO 200 mg HS OTIS Administration Melatonin 9 mg 03/01/25 21:00 03/02/25 20:58 Melatonin 3 Mg Tablet PO 9 mg HS OTIS Administration Morphine Sulfate 2 mg 03/02/25 15:30 Morphine Sulfate (*Crx) 4 Mg/Ml Inj IV PUSH Q4H PRN Pain Rated 7-10 Pantoprazole Sodium 40 mg 03/01/25 09:00 03/03/25 09:27 Pantoprazole 40 Mg Tablet PO 40 mg Q12HR OTIS Administration Vitamin B Complex 1 cap 03/01/25 13:20 03/03/25 11:53 Vitamin B Complex Capsule PO 1 cap 1200 OTIS Administration Vitamin E 400 unit 03/02/25 09:00 03/02/25 08:45 Vitamin E 400 Unit Capsule PO 400 unit DAILY OTIS Administration Radiology Results: ITS Impressions Chest X-Ray 03/01/25 10:28 Impression: Mild CHF. No pneumothorax Lumbar Spine CT 03/02/25 12:03 Impression: No acute fracture. Severe degenerative changes. Lower Extremity CT 03/02/25 12:06 IMPRESSION: 1. Moderate sized lipohemarthrosis at the left knee and small amount of intramedullary blood within the distal left femur with suspicion for mildly displaced fracture at the lateral femoral condyle. Assessment is however significantly limited at this location due to metallic streak artifact from the left total knee arthroplasty. Would consider repeat radiographs of the left knee including oblique and sunrise projections. Knee X-Ray 03/03/25 13:04 IMPRESSION: 1. Left total knee arthroplasty with periprosthetic fracture at the distal left femur with 8 mm lateral displacement of the fragment of the nonarticular lateral surface of the lateral femoral condyle. No evident lucency along the interface between the bone and the femoral component of the arthroplasty to suggest loosening. Labs Labs: Laboratory Tests 03/03/25 04:54 03/03/25 04:54 Calcium 8.2 L Total Bilirubin 0.9 AST 38 H ALT 20 Alkaline Phosphatase 54 Total Protein 5.8 L Albumin 3.0 L TSH (Reflex) 1.370
--- NOTE | 2025-03-03 14:07 | P.PNOP_ITS ---
Progress Note: A&P Assessment and Plan (1) 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, initial encounter: Code(s): M97.12XA - 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, initial encounter Status: Acute Plan 89 yr old female with Left Knee Periprosthetic fracture lateral epicondyle with moderate displacement. - recommend immobilization with Left Knee Immobilizer for 4 weeks. Strict non- weight bearing, Immobilizer ON AT ALL TIMES. Follow up 1 week after discharge. Subjective Subjective Date/Time Seen: 03/03/25 14:07 Principal diagnosis: Left Knee Periprosthetic Fracture Interval history: NO change in pain level Exam Narrative: Left knee no change in physical exam. Tenderness laterally. Objective Data Vital Signs Vital Signs: Vital Signs - 24 hr 03/02/25 16:00 03/02/25 20:00 03/02/25 20:32 Temperature 36.8 C 36.4 C Pulse Rate 78 86 89 Respiratory Rate 20 16 20 Blood Pressure 138/50 L 102/56 L Pulse Oximetry 95 95 90 Oxygen Delivery Room Air Fraction of Inspired Oxygen 21 03/02/25 20:48 03/03/25 00:58 03/03/25 05:58 Temperature 37.0 C 36.6 C Pulse Rate 87 100 Respiratory Rate 16 14 Blood Pressure 140/54 L 126/64 Pulse Oximetry 95 94 Oxygen Delivery Room Air Fraction of Inspired Oxygen 03/03/25 08:00 03/03/25 09:30 03/03/25 12:00 Temperature 36.6 C 36.8 C Pulse Rate 110 H 94 Respiratory Rate 14 14 Blood Pressure 155/80 H 149/67 H Pulse Oximetry 95 96 Oxygen Delivery Room Air Fraction of Inspired Oxygen Intake/Output Intake/Output: Intake & Output 02/28/25 03/01/25 03/02/25 03/03/25 23:59 23:59 23:59 23:59 Intake Total 3840 2623.7 420 Output Total 150 1560 600 Balance 3690 1063.7 -180 Meds/Results Medications: Active Medications Generic Name Dose Route Start Last Admin Trade Name Freq PRN Reason Stop Dose Admin Acetaminophen 650 mg 03/01/25 00:26 03/03/25 09:27 Acetaminophen 325 Mg Tablet PO 650 mg Q4H PRN Administration Mild Pain (1-3) or Fever Hydrocodone Bitart/Acetaminophen 1 tab 03/01/25 06:49 03/02/25 18:03 Hydrocodone/Acetaminophen (*Crx) 5-325 Mg Tablet PO 1 tab Q6H PRN Administration Pain Rated 7-10 Ascorbic Acid 1,000 mg 03/02/25 09:00 03/03/25 09:27 Ascorbic Acid 500 Mg Tablet PO 1,000 mg QAM OTIS Administration Aspirin 81 mg 03/01/25 09:00 03/03/25 09:27 Aspirin 81 Mg Enteric Tablet PO 81 mg DAILY OTIS Administration Atorvastatin Calcium 40 mg 03/01/25 21:00 03/02/25 20:58 Atorvastatin 40 Mg Tablet PO 40 mg HS OTIS Administration Brinzolamide 1 drop 03/01/25 09:00 03/03/25 09:28 Brinzolamide 1% Ophth Susp 10 Ml RIGHT EYE 1 drop Q12HR OTIS Administration Calcium Carbonate 500 mg 03/01/25 13:22 03/02/25 22:27 Calcium Carbonate (Tums) 500 Mg (200 Mg Elemental) PO 500 mg TID PRN Administration Indigestion Cholestyramine Resin 4 gm 03/01/25 09:00 03/03/25 09:27 Cholestyramine (W/ Sugar) 4 Gm Powd.Pack PO 4 gm BID OTIS Administration Enoxaparin Sodium 40 mg 03/03/25 11:30 03/03/25 11:51 Enoxaparin 40 Mg/0.4 Ml Syringe SUB-Q 40 mg DAILY OTIS Administration Fluticasone Propionate 2 spray 03/02/25 09:00 03/03/25 09:28 Fluticasone Propionate 0.05% Na Spr 16 Gm Btl (*Bkc) NASAL 2 spray DAILY OTIS Administration Latanoprost 1 drop 03/01/25 21:00 03/02/25 21:05 Latanoprost 0.005% Op Soln 2.5 Ml Btl RIGHT EYE 1 drop QHS OTIS Administration Lisinopril 10 mg 03/01/25 09:00 03/03/25 09:27 Lisinopril 10 Mg Tablet PO 10 mg DAILY OTIS Administration Loperamide HCl 2 mg 03/01/25 02:53 Loperamide Hcl 2 Mg Capsule PO Q6H PRN Loose Stool Magnesium Oxide 200 mg 03/01/25 21:00 03/02/25 20:58 Magnesium Oxide 200 Mg Tablet PO 200 mg HS OTIS Administration Melatonin 9 mg 03/01/25 21:00 03/02/25 20:58 Melatonin 3 Mg Tablet PO 9 mg HS OTIS Administration Morphine Sulfate 2 mg 03/02/25 15:30 Morphine Sulfate (*Crx) 4 Mg/Ml Inj IV PUSH Q4H PRN Pain Rated 7-10 Pantoprazole Sodium 40 mg 03/01/25 09:00 03/03/25 09:27 Pantoprazole 40 Mg Tablet PO 40 mg Q12HR OTIS Administration Vitamin B Complex 1 cap 03/01/25 13:20 03/03/25 11:53 Vitamin B Complex Capsule PO 1 cap 1200 OTIS Administration Vitamin E 400 unit 03/02/25 09:00 03/02/25 08:45 Vitamin E 400 Unit Capsule PO 400 unit DAILY OTIS Administration Radiology Results: ITS Impressions Chest X-Ray 03/01/25 10:28 Impression: Mild CHF. No pneumothorax Lumbar Spine CT 03/02/25 12:03 Impression: No acute fracture. Severe degenerative changes. Lower Extremity CT 03/02/25 12:06 IMPRESSION: 1. Moderate sized lipohemarthrosis at the left knee and small amount of intramedullary blood within the distal left femur with suspicion for mildly displaced fracture at the lateral femoral condyle. Assessment is however significantly limited at this location due to metallic streak artifact from the left total knee arthroplasty. Would consider repeat radiographs of the left knee including oblique and sunrise projections. Knee X-Ray 03/03/25 13:04 IMPRESSION: 1. Left total knee arthroplasty with periprosthetic fracture at the distal left femur with 8 mm lateral displacement of the fragment of the nonarticular lateral surface of the lateral femoral condyle. No evident lucency along the interface between the bone and the femoral component of the arthroplasty to suggest loosening. Labs Labs: Laboratory Results - last 24 hr 03/03/25 03/03/25 03/03/25 01:01 01:01 01:01 WBC RBC Hgb Hct MCV MCH MCHC RDW Plt Count MPV Immature Gran % (Auto) Neut % (Auto) Lymph % (Auto) [place] % (Auto) Eos % (Auto) Baso % (Auto) Lymph # (Auto) [place] # (Auto) Eos # (Auto) Baso # (Auto) Abs Immat Gran (auto) Absolute Neuts (auto) Absolute Nucleated RBC Nucleated RBC % Sodium Potassium Chloride Carbon Dioxide Anion Gap BUN Creatinine Estim Creat Clear Calc Estimated GFR Glucose Calcium Total Bilirubin AST ALT Alkaline Phosphatase Total Protein Albumin TSH (Reflex) U Random Total Protein 13 14 Ur Random Sodium 72 Ur Random Urea 600 Urine Creatinine 65.0 65.9 Protein/Creat Ratio 2 0.20 03/03/25 04:54 WBC 13.5 H RBC 3.27 L Hgb 10.4 L Hct 31.7 L MCV 96.9 MCH 31.8 MCHC 32.8 RDW 12.7 Plt Count 275 MPV 11.4 H Immature Gran % (Auto) 0.7 H Neut % (Auto) 71.3 Lymph % (Auto) 7.7 L [place] % (Auto) 18.6 H Eos % (Auto) 1.3 Baso % (Auto) 0.4 Lymph # (Auto) 1.04 [place] # (Auto) 2.5 H Eos # (Auto) 0.2 Baso # (Auto) 0.1 Abs Immat Gran (auto) 0.09 H Absolute Neuts (auto) 9.7 H Absolute Nucleated RBC 0.000 Nucleated RBC % 0.0 Sodium 123 L Potassium 4.3 Chloride 97 L Carbon Dioxide 19 L Anion Gap 7 BUN 15 Creatinine 0.60 L Estim Creat Clear Calc 63 Estimated GFR > 60 Glucose 96 Calcium 8.2 L Total Bilirubin 0.9 AST 38 H ALT 20 Alkaline Phosphatase 54 Total Protein 5.8 L Albumin 3.0 L TSH (Reflex) 1.370 U Random Total Protein Ur Random Sodium Ur Random Urea Urine Creatinine Protein/Creat Ratio 2
--- NOTE | 2025-03-03 16:03 | PCOTNOTE ---
Patient on hold for now, Ortho saw, bedrest orders entered, will await resume orders.
[2025-03-03] MEDS: HYDROcodone/acetaminophen (*CRX) 5-325 MG TABLET 1 TAB PO (16:40)
[2025-03-03] MEDS: SODIUM CHLORIDE 1 GM TABLET PO (18:51)
[2025-03-03] MEDS: MAGNESIUM OXIDE 200 MG TABLET PO (21:00)
[2025-03-03] MEDS: MELATONIN 3 MG TABLET 9 MG PO (21:00)
[2025-03-03] MEDS: ATORVASTATIN 40 MG TABLET PO (21:00)
[2025-03-03] MEDS: MORPHINE SULFATE (*CRX) 4 MG/ML INJ 2 MG IV PUSH (21:01)
[2025-03-03] MEDS: LATANOPROST 0.005% OP SOLN 2.5 ML BTL 1 DROP RIGHT EYE (21:02)
[2025-03-04] MEDS: HYDROcodone/acetaminophen (*CRX) 5-325 MG TABLET 1 TAB PO ×2 (01:32→19:57)
[2025-03-04 05:14] LABS: Hematocrit 30.0 % (37.0-47.0); Hemoglobin 9.8 g/dL (12.0-15.0); Immature Granulocyte Percent A 1.0 % (0-0.5); Lymphocytes Absolute Auto 1.09 K/mm3 (0.9-3.2); Mean Corpuscular HGB Conc 32.7 g/dl (32-36); Mean Corpuscular Hemoglobin 31.8 pg (26-34); Mean Corpuscular Volume 97.4 fl (80-100); Nucleated Red Blood Cells Absolute Auto 0.000 K/mm3 (0.0-0.012); Nucleated Red Blood Cells Perc 0.0 % (0.0-0.2); Platelet Count Result 300 k/mm3 (150-375); Red Blood Count 3.08 M/mm3 (4.2-5.4); White Blood Count 12.8 K/mm3 (4.5-10.0)
[2025-03-04 05:36] LABS: Alanine Aminotransferase 19 U/L (6-35); Albumin Level 2.7 g/dL (3.5-5.1); Alkaline Phosphatase 68 U/L (38-126); Anion Gap 5 mmol/L (4-12); Aspartate Amino Transferase 32 U/L (14-36); Bilirubin,Total 0.5 mg/dL (0.2-1.3); Blood Urea Nitrogen 16 mg/dL (7-17); Calcium 8.2 mg/dL (8.4-10.2); Carbon Dioxide 22 mmol/L (22-30); Chloride 100 mmol/L (98-107); Estimated CRCL calculation 58 ml/min; Estimated Glomerular Filt Rate > 60; Glucose 139 mg/dL (65-110); Potassium 4.2 mmol/L (3.4-5.0); Sodium 127 mmol/L (137-145); Total Protein 5.4 g/dL (6.3-8.2)
[2025-03-04 06:02] VITALS: BP 128/56; PULSE 100; RESP 16; TEMP 36.6; O2SAT 95
--- NOTE | 2025-03-04 06:52 | P.PNIM_ITS ---
Progress Note: A&P Assessment and Plan (1) Closed left femoral fracture: Code(s): S72.92XA - Unspecified fracture of left femur, initial encounter for closed fracture Status: Acute Assessment and Plan: - having significant knee pain s/p fall -Lower extremity CT 03/02/25 with moderate sized lipohemarthrosis at the left knee and small amount of intramedullary blood within the distal left femur with suspicion for mildly displaced fracture at the lateral femoral condyle. - XR L knee 03/03 confirmed periprosthetic fracture at the distal left femur with moderate displacement - orthopedic surgery following - knee immobilizer on at all times, NWB LLE. Nonoperative management for now. Follow-up 1 week after discharge. - continue pain control, DVT prophylaxis, PT/OT. Likely will need rehab placement. (2) Fall from ground level: Code(s): W18.30XA - Fall on same level, unspecified, initial encounter Status: Acute Assessment and Plan: -Ground level mechanical fall -XR L hip: Left hip prosthesis intact without periprosthetic fracture. No acute pelvic fracture noted. -Lumbar spine CT: No acute fracture, severe degenerative changes - femur fracture as above -PT/OT evals - max assist x2 w/ bed mobility, further services indicated -Consult care coordination regarding possible SNF (3) Contusion of hip, left: Qualifiers: Encounter type: initial encounter Qualified Code(s): S70.02XA - Contusion of left hip, initial encounter Code(s): S70.02XA - Contusion of left hip, initial encounter Status: Acute Assessment and Plan: -See above (4) Acute hyponatremia: Code(s): E87.1 - Hypo-osmolality and hyponatremia Status: Acute Assessment and Plan: -Upon admission - Na 124 - received IV fluids, Na worsened to 123 - likely secondary to poor PO intake. Dietitian consulted. - urine sodium normal. Urine osmolality pending. Possible SIADH. - daily labs -Nephrology consulted, started salt tabs. Na improved to 127 today. (5) Hypertension: Code(s): I10 - Essential (primary) hypertension Status: Acute Assessment and Plan: -BP stable -Will continue current medications (6) CKD (chronic kidney disease): Code(s): N18.9 - Chronic kidney disease, unspecified Status: Acute Assessment and Plan: -Creatinine: 1.13, GFR: 46, BUN: 21 -Trend renal function -Trend electrolytes, correct as needed (7) Vascular dementia: Qualifiers: Dementia behavioral or psychological symptom: with anxiety Dementia severity: mild Qualified Code(s): F01.A4 - Vascular dementia, mild, with anxiety Code(s): F01.50 - Vascular dementia, unspecified severity, without behavioral disturbance, psychotic disturbance, mood disturbance, and anxiety Status: Acute Assessment and Plan: - delirium precautions (8) Anemia: Code(s): D64.9 - Anemia, unspecified Status: Acute Assessment and Plan: - Hgb 14.1 on admission. Trended down to 9.8. Patient did receive several days of IV fluids. No signs of active bleeding. - monitor H&H - check iron studies Plan Code status: DNR DVT prophylaxis: Lovenox Dispo: likely SNF. PT/OT pending. Subjective Date/time seen: 03/04/25 06:52 Interval history: Patient seen and examined at bedside. Pain is decently controlled today. Eating a little better, sodim improved. Discussed need for knee immobilizer. Review of Systems Review of Systems: All systems reviewed & are unremarkable except as noted in HPI and below Exam Narrative: General: NAD Eyes: EOMI ENT: neck supple Cardiovascular: Regular rate and rhythm Respiratory: Clear to auscultation, respirations even and unlabored on RA Gastrointestinal: Soft, non tender Genitourinary: no suprapubic tenderness Musculoskeletal: left knee with edema and global pain with palpation Skin: warm, dry Neuro: Alert. Psych: Mood appropriate Objective Data Vital Signs Vital Signs: Vital Signs - 24 hr 03/03/25 08:00 03/03/25 09:30 03/03/25 12:00 Temperature 97.9 F 98.2 F Pulse Rate 110 H 94 Respiratory Rate 14 14 Blood Pressure 155/80 H 149/67 H Pulse Oximetry 95 96 Oxygen Delivery Room Air 03/03/25 16:00 03/03/25 20:00 03/03/25 23:48 Temperature 97.9 F 97.7 F Pulse Rate 102 H 99 100 Respiratory Rate 14 16 16 Blood Pressure 158/57 H 136/58 L 140/56 L Pulse Oximetry 93 95 97 Oxygen Delivery 03/04/25 06:02 Temperature 97.8 F Pulse Rate 100 Respiratory Rate 16 Blood Pressure 128/56 L Pulse Oximetry 95 Oxygen Delivery Intake/Output Intake/Output: Intake & Output 03/01/25 03/02/25 03/03/25 03/04/25 23:59 23:59 23:59 23:59 Intake Total 3840 2623.7 840 550 Output Total 150 1560 1100 1200 Balance 3690 1063.7 -260 -650 Meds/Results Medications: Active Medications Generic Name Dose Route Start Last Admin Trade Name Freq PRN Reason Stop Dose Admin Acetaminophen 650 mg 03/01/25 00:26 03/03/25 09:27 Acetaminophen 325 Mg Tablet PO 650 mg Q4H PRN Administration Mild Pain (1-3) or Fever Hydrocodone Bitart/Acetaminophen 1 tab 03/01/25 06:49 03/04/25 01:32 Hydrocodone/Acetaminophen (*Crx) 5-325 Mg Tablet PO 1 tab Q6H PRN Administration Pain Rated 7-10 Ascorbic Acid 1,000 mg 03/02/25 09:00 03/03/25 09:27 Ascorbic Acid 500 Mg Tablet PO 1,000 mg QAM OTIS Administration Aspirin 81 mg 03/01/25 09:00 03/03/25 09:27 Aspirin 81 Mg Enteric Tablet PO 81 mg DAILY OTIS Administration Atorvastatin Calcium 40 mg 03/01/25 21:00 03/03/25 21:00 Atorvastatin 40 Mg Tablet PO 40 mg HS OTIS Administration Brinzolamide 1 drop 03/01/25 09:00 03/03/25 21:02 Brinzolamide 1% Ophth Susp 10 Ml RIGHT EYE 1 drop Q12HR OTIS Administration Calcium Carbonate 500 mg 03/01/25 13:22 03/02/25 22:27 Calcium Carbonate (Tums) 500 Mg (200 Mg Elemental) PO 500 mg TID PRN Administration Indigestion Cholestyramine Resin 4 gm 03/01/25 09:00 03/03/25 16:42 Cholestyramine (W/ Sugar) 4 Gm Powd.Pack PO 4 gm BID OTIS Administration Enoxaparin Sodium 40 mg 03/03/25 11:30 03/03/25 11:51 Enoxaparin 40 Mg/0.4 Ml Syringe SUB-Q 40 mg DAILY OTIS Administration Fluticasone Propionate 2 spray 03/02/25 09:00 03/03/25 09:28 Fluticasone Propionate 0.05% Na Spr 16 Gm Btl (*Bkc) NASAL 2 spray DAILY OTIS Administration Latanoprost 1 drop 03/01/25 21:00 03/03/25 21:02 Latanoprost 0.005% Op Soln 2.5 Ml Btl RIGHT EYE 1 drop QHS OTIS Administration Lisinopril 10 mg 03/01/25 09:00 03/03/25 09:27 Lisinopril 10 Mg Tablet PO 10 mg DAILY OTIS Administration Loperamide HCl 2 mg 03/01/25 02:53 Loperamide Hcl 2 Mg Capsule PO Q6H PRN Loose Stool Magnesium Oxide 200 mg 03/01/25 21:00 03/03/25 21:00 Magnesium Oxide 200 Mg Tablet PO 200 mg HS OTIS Administration Melatonin 9 mg 03/01/25 21:00 03/03/25 21:00 Melatonin 3 Mg Tablet PO 9 mg HS OTIS Administration Morphine Sulfate 2 mg 03/02/25 15:30 03/03/25 21:01 Morphine Sulfate (*Crx) 4 Mg/Ml Inj IV PUSH 2 mg Q4H PRN Administration Pain Rated 7-10 Pantoprazole Sodium 40 mg 03/01/25 09:00 03/03/25 21:00 Pantoprazole 40 Mg Tablet PO 40 mg Q12HR OTIS Administration Sodium Chloride 1 gm 03/03/25 18:35 03/03/25 18:51 Sodium Chloride 1 Gm Tablet PO 1 gm BID OTIS Administration Vitamin B Complex 1 cap 03/01/25 13:20 03/03/25 11:53 Vitamin B Complex Capsule PO 1 cap 1200 OTIS Administration Vitamin E 400 unit 03/02/25 09:00 03/02/25 08:45 Vitamin E 400 Unit Capsule PO 400 unit DAILY OTIS Administration Radiology Results: ITS Impressions Chest X-Ray 03/01/25 10:28 Impression: Mild CHF. No pneumothorax Lumbar Spine CT 03/02/25 12:03 Impression: No acute fracture. Severe degenerative changes. Lower Extremity CT 03/02/25 12:06 IMPRESSION: 1. Moderate sized lipohemarthrosis at the left knee and small amount of intramedullary blood within the distal left femur with suspicion for mildly displaced fracture at the lateral femoral condyle. Assessment is however significantly limited at this location due to metallic streak artifact from the left total knee arthroplasty. Would consider repeat radiographs of the left knee including oblique and sunrise projections. Knee X-Ray 03/03/25 13:04 IMPRESSION: 1. Left total knee arthroplasty with periprosthetic fracture at the distal left femur with 8 mm lateral displacement of the fragment of the nonarticular lateral surface of the lateral femoral condyle. No evident lucency along the interface between the bone and the femoral component of the arthroplasty to suggest loosening. Labs Labs: Laboratory Results - last 24 hr 03/04/25 04:55 WBC 12.8 H RBC 3.08 L Hgb 9.8 L Hct 30.0 L MCV 97.4 MCH 31.8 MCHC 32.7 RDW 13.1 Plt Count 300 MPV 10.4 Immature Gran % (Auto) 1.0 H Neut % (Auto) 70.1 Lymph % (Auto) 8.5 L [place] % (Auto) 17.6 H Eos % (Auto) 2.3 Baso % (Auto) 0.5 Lymph # (Auto) 1.09 [place] # (Auto) 2.3 H Eos # (Auto) 0.3 Baso # (Auto) 0.1 Abs Immat Gran (auto) 0.13 H Absolute Neuts (auto) 8.9 H Absolute Nucleated RBC 0.000 Nucleated RBC % 0.0 Sodium 127 L Potassium 4.2 Chloride 100 Carbon Dioxide 22 Anion Gap 5 BUN 16 Creatinine 0.66 L Estim Creat Clear Calc 58 Estimated GFR > 60 Glucose 139 H Calcium 8.2 L Total Bilirubin 0.5 AST 32 ALT 19 Alkaline Phosphatase 68 Total Protein 5.4 L Albumin 2.7 L Quality VTE Prophylaxis VTE prophylaxis: pharmacologic ordered
[2025-03-04 08:00] VITALS: BP 141/58; PULSE 109; RESP 18; TEMP 36.9; O2SAT 95
[2025-03-04 08:32] VITALS: PULSE 100; RESP 16; O2SAT 95
[2025-03-04] MEDS: CHOLESTYRAMINE (W/ SUGAR) 4 GM POWD.PACK PO ×2 (08:32→16:46)
[2025-03-04] MEDS: VITAMIN E 400 UNIT CAPSULE PO (08:33)
[2025-03-04] MEDS: SODIUM CHLORIDE 1 GM TABLET PO ×2 (08:33→16:46)
[2025-03-04] MEDS: ASCORBIC ACID 500 MG TABLET 1000 MG PO (08:33)
[2025-03-04] MEDS: ENOXAPARIN 40 MG/0.4 ML SYRINGE SUB-Q (08:33)
[2025-03-04] MEDS: ASPIRIN 81 MG ENTERIC TABLET PO (08:33)
[2025-03-04] MEDS: PANTOPRAZOLE 40 MG TABLET PO ×2 (08:33→19:58)
[2025-03-04] MEDS: BRINZOLAMIDE 1% OPHTH SUSP 10 ML 1 DROP RIGHT EYE ×2 (08:34→19:58)
[2025-03-04] MEDS: VITAMIN B COMPLEX CAPSULE 1 CAP PO (11:03)
[2025-03-04 11:28] LABS: Iron 13 ug/dL (37-170)
[2025-03-04 11:37] LABS: Percent Iron Saturation 7 % (20-50)
[2025-03-04 11:48] VITALS: BP 145/67; PULSE 100; RESP 18; TEMP 36.9; O2SAT 97
[2025-03-04 12:09] LABS: Ferritin 316.00 ng/mL (11.1-264)
[2025-03-04 12:19] LABS: Vitamin B12 645.0 pg/mL (239-931)
--- NOTE | 2025-03-04 12:27 | P.PNNP_ITS ---
Progress Note: A&P Assessment and Plan (1) Hyponatremia: Code(s): E87.1 - Hypo-osmolality and hyponatremia Status: Acute Assessment and Plan: * improvement noted * as noted on admission * from review of recent hospitalization at [facility], sodium was progressively worsening prior to leaving AMA * 138mmol/L on admission (02/20/25) * then 137 --> 133 --> 130 --> 129 --> and then 126 (on 02/28/25) * possibly due to ongoing/steady free water intake but diminished/poor solid food intake * risk factors for low sodium * pain * pain medications/narcotics * PPI use * increased free water intake * evaluation noted to date: * TSH okay * cortisol not done(?) * SPEP/UPEP with immunofixation pending * serum/urine osmolality pending * follow I/Os * on salt tabs * follow trend of sodium levels (2) Fall from ground level: Code(s): W18.30XA - Fall on same level, unspecified, initial encounter Status: Acute Assessment and Plan: * ground level mechanical fall as noted on admission * imaging to date noted (03/02): * XR L hip: Left hip prosthesis intact without periprosthetic fracture; no acute pelvic fracture noted * XR L femur: No fracture but noted peripheral arterial disease * XR L knee: Suprapatellar joint effusion; knee arthroplasty intact without periprosthetic fracture * Lumbar spine CT: No acute fracture, severe degenerative changes * continues with intractable pain in left thigh * ongoing PT/OT * may need placement (3) 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: Code(s): M97.12XA - 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, initial encounter Status: Acute Assessment and Plan: * significant knee pain s/p fall * imaging noted * lower extremity CT: moderate sized lipohemarthrosis at the left knee and small amount of intramedullary blood within the distal left femur with suspicion for mildly displaced fracture at the lateral femoral condyle; assessment is however significantly limited at this location due to metallic streak artifact from the left total knee arthroplasty * repeat L knee x-ray (03/03): Left total knee arthroplasty with periprosthetic fracture at the distal left femur with 8 mm lateral displacement of the fragment of the nonarticular lateral surface of the lateral femoral condyle; no evident lucency along the interface between the bone and the femoral component of the arthroplasty to suggest loosening * Orthopedic surgery following: * radiographs reviewed * knee immobilizer * NWB LLE * continue onoperative management for now. * pain control (4) Hypertension: Code(s): I10 - Essential (primary) hypertension Status: Acute Assessment and Plan: * reasonable control * some fluctuations due to pain * follow trend of hemodynamics Will continue to follow. L Subjective Date/time seen: 03/04/25 12:27 Interval history: Follow-up for acute hyponatremia. Improvement in sodium level noted with current therapy/interventions to date; pain control seems to be doing better at the time of my visit; states she is eating a tad better as well. Exam 2 Narrative: General: elderly but WD/WN female in NAD Heart: normal S1 and S2; no rub Lungs: clear to auscultation Abdomen: soft, nontender, nondistended, positive bowel sounds Extremities: no cyanosis or clubbing; no edema Skin: warm and intact Objective Data Vital Signs Vital Signs: Vital Signs Temp Pulse Resp BP Pulse Ox O2 Del Method FiO2 03/04/25 11:48 98.5 F 100 18 145/67 H 97 03/04/25 09:43 Room Air 03/04/25 09:22 Room Air 03/04/25 08:32 100 16 95 Room Air 21 03/04/25 08:00 98.4 F 109 H 18 141/58 H 95 03/04/25 06:02 97.8 F 100 16 128/56 L 95 03/03/25 23:48 97.7 F 100 16 140/56 L 97 03/03/25 20:00 97.9 F 99 16 136/58 L 95 Intake/Output Intake/Output: Intake & Output 03/01/25 03/02/25 03/03/25 03/04/25 23:59 23:59 23:59 23:59 Intake Total 3840 2623.7 840 1030 Output Total 150 1560 1100 1200 Balance 3690 1063.7 -260 -170 Meds/Results Medications: Active Medications Generic Name Dose Route Start Last Admin Trade Name Freq PRN Reason Stop Dose Admin Acetaminophen 650 mg 03/01/25 00:26 03/04/25 12:32 Acetaminophen 325 Mg Tablet PO 650 mg Q4H PRN Administration Mild Pain (1-3) or Fever Hydrocodone Bitart/Acetaminophen 1 tab 03/01/25 06:49 03/04/25 01:32 Hydrocodone/Acetaminophen (*Crx) 5-325 Mg Tablet PO 1 tab Q6H PRN Administration Pain Rated 7-10 Ascorbic Acid 1,000 mg 03/02/25 09:00 03/04/25 08:33 Ascorbic Acid 500 Mg Tablet PO 1,000 mg QAM OTIS Administration Aspirin 81 mg 03/01/25 09:00 03/04/25 08:33 Aspirin 81 Mg Enteric Tablet PO 81 mg DAILY OTIS Administration Atorvastatin Calcium 40 mg 03/01/25 21:00 03/03/25 21:00 Atorvastatin 40 Mg Tablet PO 40 mg HS OTIS Administration Brinzolamide 1 drop 03/01/25 09:00 03/04/25 08:34 Brinzolamide 1% Ophth Susp 10 Ml RIGHT EYE 1 drop Q12HR OTIS Administration Calcium Carbonate 500 mg 03/01/25 13:22 03/02/25 22:27 Calcium Carbonate (Tums) 500 Mg (200 Mg Elemental) PO 500 mg TID PRN Administration Indigestion Cholestyramine Resin 4 gm 03/01/25 09:00 03/04/25 16:46 Cholestyramine (W/ Sugar) 4 Gm Powd.Pack PO 4 gm BID OTIS Administration Enoxaparin Sodium 40 mg 03/03/25 11:30 03/04/25 08:33 Enoxaparin 40 Mg/0.4 Ml Syringe SUB-Q 40 mg DAILY OTIS Administration Fluticasone Propionate 2 spray 03/02/25 09:00 03/04/25 08:34 Fluticasone Propionate 0.05% Na Spr 16 Gm Btl (*Bkc) NASAL Not Given DAILY OTIS Latanoprost 1 drop 03/01/25 21:00 03/03/25 21:02 Latanoprost 0.005% Op Soln 2.5 Ml Btl RIGHT EYE 1 drop QHS OTIS Administration Lisinopril 10 mg 03/01/25 09:00 03/04/25 08:33 Lisinopril 10 Mg Tablet PO 10 mg DAILY OTIS Administration Loperamide HCl 2 mg 03/01/25 02:53 Loperamide Hcl 2 Mg Capsule PO Q6H PRN Loose Stool Magnesium Oxide 200 mg 03/01/25 21:00 03/03/25 21:00 Magnesium Oxide 200 Mg Tablet PO 200 mg HS OTIS Administration Melatonin 9 mg 03/01/25 21:00 03/03/25 21:00 Melatonin 3 Mg Tablet PO 9 mg HS OTIS Administration Morphine Sulfate 2 mg 03/02/25 15:30 03/03/25 21:01 Morphine Sulfate (*Crx) 4 Mg/Ml Inj IV PUSH 2 mg Q4H PRN Administration Pain Rated 7-10 Pantoprazole Sodium 40 mg 03/01/25 09:00 03/04/25 08:33 Pantoprazole 40 Mg Tablet PO 40 mg Q12HR OTIS Administration Sodium Chloride 1 gm 03/03/25 18:35 03/04/25 16:46 Sodium Chloride 1 Gm Tablet PO 1 gm BID OTIS Administration Vitamin B Complex 1 cap 03/01/25 13:20 03/04/25 11:03 Vitamin B Complex Capsule PO 1 cap 1200 OTIS Administration Vitamin E 400 unit 03/02/25 09:00 03/04/25 08:33 Vitamin E 400 Unit Capsule PO 400 unit DAILY OTIS Administration Radiology Results: ITS Impressions Chest X-Ray 03/01/25 10:28 Impression: Mild CHF. No pneumothorax Lumbar Spine CT 03/02/25 12:03 Impression: No acute fracture. Severe degenerative changes. Lower Extremity CT 03/02/25 12:06 IMPRESSION: 1. Moderate sized lipohemarthrosis at the left knee and small amount of intramedullary blood within the distal left femur with suspicion for mildly displaced fracture at the lateral femoral condyle. Assessment is however significantly limited at this location due to metallic streak artifact from the left total knee arthroplasty. Would consider repeat radiographs of the left knee including oblique and sunrise projections. Knee X-Ray 03/03/25 13:04 IMPRESSION: 1. Left total knee arthroplasty with periprosthetic fracture at the distal left femur with 8 mm lateral displacement of the fragment of the nonarticular lateral surface of the lateral femoral condyle. No evident lucency along the interface between the bone and the femoral component of the arthroplasty to suggest loosening. Labs Labs: Laboratory Tests 03/04/25 04:55 03/04/25 04:55 Calcium 8.2 L Iron 13 L TIBC 180 L % Saturation 7 L Ferritin 316.00 H Total Bilirubin 0.5 AST 32 ALT 19 Alkaline Phosphatase 68 Total Protein 5.4 L Total Protein (PEP) Albumin 2.7 L Albumin (PEP) Globulin (PEP) Albumin/Globulin Ratio Skesg-0-Igtrockcb Gspuy-6-Bhfhvylli Beta Globulins Gamma Globulins PEP Comment Vitamin B12 645.0 Folate 16.3 Pr Electrophoresis MSpike
[2025-03-04] MEDS: ACETAMINOPHEN 325 MG TABLET 650 MG PO (12:32)
[2025-03-04 14:08] LABS: Albumin 2.4 g/dL (2.9-4.4); Alpha-1-Globulin 0.5 g/dL (0.0-0.4); Alpha-2-Globulin 0.9 g/dL (0.4-1.0); Gamma Globulin 0.5 g/dL (0.4-1.8)
[2025-03-04 15:57] VITALS: BP 133/58; PULSE 77; RESP 18; TEMP 36.4; O2SAT 97
[2025-03-04] MEDS: LATANOPROST 0.005% OP SOLN 2.5 ML BTL 1 DROP RIGHT EYE (19:58)
[2025-03-04] MEDS: MELATONIN 3 MG TABLET 9 MG PO (19:58)
[2025-03-04] MEDS: MAGNESIUM OXIDE 200 MG TABLET PO (19:58)
[2025-03-04] MEDS: ATORVASTATIN 40 MG TABLET PO (19:58)
[2025-03-04 20:33] VITALS: BP 153/88; PULSE 72; RESP 16; TEMP 36.5; O2SAT 98
[2025-03-05] VITALS: BP 139/56; PULSE 92; RESP 14; TEMP 36.4; O2SAT 96
[2025-03-05 05:02] LABS: Hematocrit 31.2 % (37.0-47.0); Hemoglobin 10.2 g/dL (12.0-15.0); Immature Granulocyte Percent A 1.4 % (0-0.5); Lymphocytes Absolute Auto 1.12 K/mm3 (0.9-3.2); Mean Corpuscular HGB Conc 32.7 g/dl (32-36); Mean Corpuscular Hemoglobin 31.7 pg (26-34); Mean Corpuscular Volume 96.9 fl (80-100); Nucleated Red Blood Cells Absolute Auto 0.000 K/mm3 (0.0-0.012); Nucleated Red Blood Cells Perc 0.0 % (0.0-0.2); Platelet Count Result 375 k/mm3 (150-375); Red Blood Count 3.22 M/mm3 (4.2-5.4); White Blood Count 11.7 K/mm3 (4.5-10.0)
[2025-03-05 05:16] LABS: Alanine Aminotransferase 20 U/L (6-35); Albumin Level 2.9 g/dL (3.5-5.1); Alkaline Phosphatase 76 U/L (38-126); Anion Gap 6 mmol/L (4-12); Aspartate Amino Transferase 26 U/L (14-36); Bilirubin,Total 0.6 mg/dL (0.2-1.3); Blood Urea Nitrogen 14 mg/dL (7-17); Calcium 8.7 mg/dL (8.4-10.2); Carbon Dioxide 25 mmol/L (22-30); Chloride 99 mmol/L (98-107); Estimated CRCL calculation 57 ml/min; Estimated Glomerular Filt Rate > 60; Glucose 108 mg/dL (65-110); Potassium 4.2 mmol/L (3.4-5.0); Sodium 130 mmol/L (137-145); Total Protein 5.8 g/dL (6.3-8.2)
[2025-03-05] MEDS: HYDROcodone/acetaminophen (*CRX) 5-325 MG TABLET 1 TAB PO ×2 (05:59→11:39)
[2025-03-05 06:15] VITALS: BP 140/60; PULSE 100; RESP 16; TEMP 36.7; O2SAT 94
--- NOTE | 2025-03-05 07:17 | P.PNIM_ITS ---
Progress Note: A&P Assessment and Plan (1) Closed left femoral fracture: Code(s): S72.92XA - Unspecified fracture of left femur, initial encounter for closed fracture Status: Acute Assessment and Plan: - having significant knee pain s/p fall -Lower extremity CT 03/02/25 with moderate sized lipohemarthrosis at the left knee and small amount of intramedullary blood within the distal left femur with suspicion for mildly displaced fracture at the lateral femoral condyle. - XR L knee 03/03 confirmed periprosthetic fracture at the distal left femur with moderate displacement - orthopedic surgery following - knee immobilizer on at all times, NWB LLE. Nonoperative management for now. Follow-up 1 week after discharge. - continue pain control, DVT prophylaxis, PT/OT. Likely will need rehab placement. (2) Fall from ground level: Code(s): W18.30XA - Fall on same level, unspecified, initial encounter Status: Acute Assessment and Plan: -Ground level mechanical fall -XR L hip: Left hip prosthesis intact without periprosthetic fracture. No acute pelvic fracture noted. -Lumbar spine CT: No acute fracture, severe degenerative changes - femur fracture as above -PT/OT evals - max assist x2 w/ bed mobility, further services indicated -Consult care coordination regarding possible SNF (3) Contusion of hip, left: Qualifiers: Encounter type: initial encounter Qualified Code(s): S70.02XA - Contusion of left hip, initial encounter Code(s): S70.02XA - Contusion of left hip, initial encounter Status: Acute Assessment and Plan: -See above (4) Acute hyponatremia: Code(s): E87.1 - Hypo-osmolality and hyponatremia Status: Acute Assessment and Plan: -Upon admission - Na 124 - received IV fluids, Na worsened to 123 - likely secondary to poor PO intake. Dietitian consulted. - urine sodium normal. Urine osmolality pending. Possible SIADH. - daily labs -Nephrology consulted, started salt tabs. Na improved to 130 today. (5) Hypertension: Code(s): I10 - Essential (primary) hypertension Status: Acute Assessment and Plan: -BP stable -Will continue current medications (6) CKD (chronic kidney disease): Code(s): N18.9 - Chronic kidney disease, unspecified Status: Acute Assessment and Plan: - Cr 0.67 10 -Trend electrolytes, correct as needed (7) Vascular dementia: Qualifiers: Dementia severity: mild Dementia behavioral or psychological symptom: with anxiety Qualified Code(s): F01.A4 - Vascular dementia, mild, with anxiety Code(s): F01.50 - Vascular dementia, unspecified severity, without behavioral disturbance, psychotic disturbance, mood disturbance, and anxiety Status: Acute Assessment and Plan: - delirium precautions (8) Anemia: Code(s): D64.9 - Anemia, unspecified Status: Acute Assessment and Plan: - Hgb 14.1 on admission. Trended down to 9.8. Patient did receive several days of IV fluids. No signs of active bleeding. - Hgb 10.2 today, stable Plan Code status: DNR DVT prophylaxis: Lovenox Dispo: likely SNF. PT/OT pending. Subjective Date/time seen: 03/05/25 07:17 Interval history: Patient seen and examined at bedside. Pain is decently controlled today. Eating a little better, sodium improved. Discussed need for knee immobilizer. Review of Systems Review of Systems: All systems reviewed & are unremarkable except as noted in HPI and below Exam Narrative: General: NAD Eyes: EOMI ENT: neck supple Cardiovascular: Regular rate and rhythm Respiratory: Clear to auscultation, respirations even and unlabored on RA Gastrointestinal: Soft, non tender Genitourinary: no suprapubic tenderness Musculoskeletal: left knee with edema and global pain with palpation Skin: warm, dry Neuro: Alert. Psych: Mood appropriate Objective Data Vital Signs Vital Signs: Vital Signs - 24 hr 03/04/25 08:00 03/04/25 08:32 03/04/25 09:22 Temperature 98.4 F Pulse Rate 109 H 100 Respiratory Rate 18 16 Blood Pressure 141/58 H Pulse Oximetry 95 95 Oxygen Delivery Room Air Room Air Fraction of Inspired Oxygen 21 03/04/25 09:43 03/04/25 11:48 03/04/25 15:57 Temperature 98.5 F 97.6 F Pulse Rate 100 77 Respiratory Rate 18 18 Blood Pressure 145/67 H 133/58 L Pulse Oximetry 97 97 Oxygen Delivery Room Air Fraction of Inspired Oxygen 03/04/25 20:00 03/04/25 20:33 03/05/25 00:00 Temperature 97.7 F 97.6 F Pulse Rate 72 92 Respiratory Rate 16 14 Blood Pressure 153/88 H 139/56 L Pulse Oximetry 98 96 Oxygen Delivery Room Air Fraction of Inspired Oxygen 03/05/25 06:15 Temperature 98.0 F Pulse Rate 100 Respiratory Rate 16 Blood Pressure 140/60 Pulse Oximetry 94 Oxygen Delivery Fraction of Inspired Oxygen Intake/Output Intake/Output: Intake & Output 03/02/25 03/03/25 03/04/25 03/05/25 23:59 23:59 23:59 23:59 Intake Total 2623.7 840 1510 550 Output Total 1560 1100 1900 1200 Balance 1063.7 -260 -390 -650 Meds/Results Medications: Active Medications Generic Name Dose Route Start Last Admin Trade Name Freq PRN Reason Stop Dose Admin Acetaminophen 650 mg 03/01/25 00:26 03/04/25 12:32 Acetaminophen 325 Mg Tablet PO 650 mg Q4H PRN Administration Mild Pain (1-3) or Fever Hydrocodone Bitart/Acetaminophen 1 tab 03/01/25 06:49 03/05/25 05:59 Hydrocodone/Acetaminophen (*Crx) 5-325 Mg Tablet PO 1 tab Q6H PRN Administration Pain Rated 7-10 Ascorbic Acid 1,000 mg 03/02/25 09:00 03/04/25 08:33 Ascorbic Acid 500 Mg Tablet PO 1,000 mg QAM OTIS Administration Aspirin 81 mg 03/01/25 09:00 03/04/25 08:33 Aspirin 81 Mg Enteric Tablet PO 81 mg DAILY OTIS Administration Atorvastatin Calcium 40 mg 03/01/25 21:00 03/04/25 19:58 Atorvastatin 40 Mg Tablet PO 40 mg HS OTIS Administration Brinzolamide 1 drop 03/01/25 09:00 03/04/25 19:58 Brinzolamide 1% Ophth Susp 10 Ml RIGHT EYE 1 drop Q12HR OTIS Administration Calcium Carbonate 500 mg 03/01/25 13:22 03/02/25 22:27 Calcium Carbonate (Tums) 500 Mg (200 Mg Elemental) PO 500 mg TID PRN Administration Indigestion Cholestyramine Resin 4 gm 03/01/25 09:00 03/04/25 16:46 Cholestyramine (W/ Sugar) 4 Gm Powd.Pack PO 4 gm BID OTIS Administration Enoxaparin Sodium 40 mg 03/03/25 11:30 03/04/25 08:33 Enoxaparin 40 Mg/0.4 Ml Syringe SUB-Q 40 mg DAILY OTIS Administration Fluticasone Propionate 2 spray 03/02/25 09:00 03/04/25 08:34 Fluticasone Propionate 0.05% Na Spr 16 Gm Btl (*Bkc) NASAL Not Given DAILY OTIS Latanoprost 1 drop 03/01/25 21:00 03/04/25 19:58 Latanoprost 0.005% Op Soln 2.5 Ml Btl RIGHT EYE 1 drop QHS OTIS Administration Lisinopril 10 mg 03/01/25 09:00 03/04/25 08:33 Lisinopril 10 Mg Tablet PO 10 mg DAILY OTIS Administration Loperamide HCl 2 mg 03/01/25 02:53 Loperamide Hcl 2 Mg Capsule PO Q6H PRN Loose Stool Magnesium Oxide 200 mg 03/01/25 21:00 03/04/25 19:58 Magnesium Oxide 200 Mg Tablet PO 200 mg HS OTIS Administration Melatonin 9 mg 03/01/25 21:00 03/04/25 19:58 Melatonin 3 Mg Tablet PO 9 mg HS OTIS Administration Morphine Sulfate 2 mg 03/02/25 15:30 03/03/25 21:01 Morphine Sulfate (*Crx) 4 Mg/Ml Inj IV PUSH 2 mg Q4H PRN Administration Pain Rated 7-10 Ondansetron HCl 4 mg 03/04/25 17:38 Ondansetron Inj 4 Mg/2 Ml Vial IV PUSH Q6H PRN Nausea And Vomiting Pantoprazole Sodium 40 mg 03/01/25 09:00 03/04/25 19:58 Pantoprazole 40 Mg Tablet PO 40 mg Q12HR OTIS Administration Sodium Chloride 1 gm 03/03/25 18:35 03/04/25 16:46 Sodium Chloride 1 Gm Tablet PO 1 gm BID OTIS Administration Vitamin B Complex 1 cap 03/01/25 13:20 03/04/25 11:03 Vitamin B Complex Capsule PO 1 cap 1200 OTIS Administration Vitamin E 400 unit 03/02/25 09:00 03/04/25 08:33 Vitamin E 400 Unit Capsule PO 400 unit DAILY OTIS Administration Radiology Results: ITS Impressions Chest X-Ray 03/01/25 10:28 Impression: Mild CHF. No pneumothorax Lumbar Spine CT 03/02/25 12:03 Impression: No acute fracture. Severe degenerative changes. Lower Extremity CT 03/02/25 12:06 IMPRESSION: 1. Moderate sized lipohemarthrosis at the left knee and small amount of intramedullary blood within the distal left femur with suspicion for mildly displaced fracture at the lateral femoral condyle. Assessment is however significantly limited at this location due to metallic streak artifact from the left total knee arthroplasty. Would consider repeat radiographs of the left knee including oblique and sunrise projections. Knee X-Ray 03/03/25 13:04 IMPRESSION: 1. Left total knee arthroplasty with periprosthetic fracture at the distal left femur with 8 mm lateral displacement of the fragment of the nonarticular lateral surface of the lateral femoral condyle. No evident lucency along the interface b etween the bone and the femoral component of the arthroplasty to suggest loosening. Labs Labs: Laboratory Results - last 24 hr 03/03/25 03/04/25 03/05/25 04:54 04:55 04:39 WBC 11.7 H RBC 3.22 L Hgb 10.2 L Hct 31.2 L MCV 96.9 MCH 31.7 MCHC 32.7 RDW 13.0 Plt Count 375 MPV 10.2 Immature Gran % (Auto) 1.4 H Neut % (Auto) 70.2 Lymph % (Auto) 9.6 L [place] % (Auto) 14.1 H Eos % (Auto) 4.3 Baso % (Auto) 0.4 Lymph # (Auto) 1.12 [place] # (Auto) 1.7 H Eos # (Auto) 0.5 H Baso # (Auto) 0.1 Abs Immat Gran (auto) 0.16 H Absolute Neuts (auto) 8.2 H Absolute Nucleated RBC 0.000 Nucleated RBC % 0.0 Sodium 127 L 130 L Potassium 4.2 4.2 Chloride 100 99 Carbon Dioxide 22 25 Anion Gap 5 6 BUN 16 14 Creatinine 0.66 L 0.67 L Estim Creat Clear Calc 58 57 Estimated GFR > 60 > 60 Glucose 139 H 108 Calcium 8.2 L 8.7 Iron 13 L TIBC 180 L % Saturation 7 L Ferritin 316.00 H Total Bilirubin 0.5 0.6 AST 32 26 ALT 19 20 Alkaline Phosphatase 68 76 Total Protein 5.4 L 5.8 L Total Protein (PEP) 4.9 L Albumin 2.7 L 2.9 L Albumin (PEP) 2.4 L Globulin (PEP) 2.5 Albumin/Globulin Ratio 1.0 Euvgu-8-Ohtsdbhgh 0.5 H Ugtwn-8-Klrrlixcj 0.9 Beta Globulins 0.6 L Gamma Globulins 0.5 PEP Comment Comment Vitamin B12 645.0 Folate 16.3 Pr Electrophoresis MSpike Not observed Quality VTE Prophylaxis VTE prophylaxis: pharmacologic ordered
[2025-03-05 08:00] VITALS: BP 161/71; PULSE 109; RESP 14; TEMP 36.6; O2SAT 94
[2025-03-05] MEDS: ENOXAPARIN 40 MG/0.4 ML SYRINGE SUB-Q (10:05)
[2025-03-05] MEDS: CHOLESTYRAMINE (W/ SUGAR) 4 GM POWD.PACK PO (10:05)
[2025-03-05] MEDS: ASPIRIN 81 MG ENTERIC TABLET PO (10:05)
[2025-03-05] MEDS: ACETAMINOPHEN 325 MG TABLET 650 MG PO (10:05)
[2025-03-05] MEDS: PANTOPRAZOLE 40 MG TABLET PO (10:06)
[2025-03-05] MEDS: BRINZOLAMIDE 1% OPHTH SUSP 10 ML 1 DROP RIGHT EYE (10:06)
[2025-03-05] MEDS: SODIUM CHLORIDE 1 GM TABLET PO (10:06)
[2025-03-05] MEDS: ASCORBIC ACID 500 MG TABLET 1000 MG PO (10:06)
[2025-03-05] MEDS: VITAMIN E 400 UNIT CAPSULE PO (10:06)
[2025-03-05] MEDS: FLUTICASONE PROPIONATE 0.05% NA SPR 16 GM BTL (*BKC) 2 SPRAY NASAL (10:07)
--- NOTE | 2025-03-05 11:02 | P.PNNP_ITS ---
Progress Note: A&P Assessment and Plan (1) Hyponatremia: Code(s): E87.1 - Hypo-osmolality and hyponatremia Status: Acute Assessment and Plan: * improvement noted * as noted on admission * from review of recent hospitalization at [facility], sodium was progressively worsening prior to leaving AMA * 138mmol/L on admission (02/20/25) * then 137 --> 133 --> 130 --> 129 --> and then 126 (on 02/28/25) * possibly due to ongoing/steady free water intake but diminished/poor solid food intake * risk factors for low sodium * pain * pain medications/narcotics * PPI use * increased free water intake * evaluation noted to date: * TSH okay * cortisol not done(?) * SPEP/UPEP with immunofixation pending * serum/urine osmolality pending * follow I/Os * on salt tabs * follow trend of sodium levels (2) Fall from ground level: Code(s): W18.30XA - Fall on same level, unspecified, initial encounter Status: Acute Assessment and Plan: * ground level mechanical fall as noted on admission * imaging to date noted (03/02): * XR L hip: Left hip prosthesis intact without periprosthetic fracture; no acute pelvic fracture noted * XR L femur: No fracture but noted peripheral arterial disease * XR L knee: Suprapatellar joint effusion; knee arthroplasty intact without periprosthetic fracture * Lumbar spine CT: No acute fracture, severe degenerative changes * continues with intractable pain in left thigh * ongoing PT/OT * may need placement (3) 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: Code(s): M97.12XA - 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, initial encounter Status: Acute Assessment and Plan: * significant knee pain s/p fall * imaging noted * lower extremity CT: moderate sized lipohemarthrosis at the left knee and small amount of intramedullary blood within the distal left femur with suspicion for mildly displaced fracture at the lateral femoral condyle; assessment is however significantly limited at this location due to metallic streak artifact from the left total knee arthroplasty * repeat L knee x-ray (03/03): Left total knee arthroplasty with periprosthetic fracture at the distal left femur with 8 mm lateral displacement of the fragment of the nonarticular lateral surface of the lateral femoral condyle; no evident lucency along the interface between the bone and the femoral component of the arthroplasty to suggest loosening * Orthopedic surgery following: * radiographs reviewed * knee immobilizer * NWB LLE * continue onoperative management for now. * pain control (4) Hypertension: Code(s): I10 - Essential (primary) hypertension Status: Acute Assessment and Plan: * reasonable control * some fluctuations due to pain * follow trend of hemodynamics Will continue to follow. L Subjective Date/time seen: 03/05/25 11:02 Interval history: Follow-up for acute hyponatremia. Slow and steady improvement in sodium level with recent addition of salt tablets; pain control seems to be adequate in general and at the time of my visit; no issues.events overnight or earlier this morning. Exam 2 Narrative: General: elderly but WD/WN female in NAD Heart: normal S1 and S2; no rub Lungs: clear to auscultation Abdomen: soft, nontender, nondistended, positive bowel sounds Extremities: no cyanosis or clubbing; no edema Skin: no rash or nodules Objective Data Vital Signs Vital Signs: Vital Signs Temp Pulse Resp BP Pulse Ox O2 Del Method 03/05/25 11:00 98.7 F 103 H 16 148/76 H 96 03/05/25 08:00 Room Air 03/05/25 08:00 97.9 F 109 H 14 161/71 H 94 03/05/25 06:15 98.0 F 100 16 140/60 94 03/05/25 00:00 97.6 F 92 14 139/56 L 96 03/04/25 20:33 97.7 F 72 16 153/88 H 98 03/04/25 20:00 Room Air 03/04/25 15:57 97.6 F 77 18 133/58 L 97 Intake/Output Intake/Output: Intake & Output 03/02/25 03/03/25 03/04/25 03/05/25 23:59 23:59 23:59 23:59 Intake Total 2623.7 840 1510 670 Output Total 1560 1100 1900 1200 Balance 1063.7 -260 -390 -530 Meds/Results Medications: Active Medications Generic Name Dose Route Start Last Admin Trade Name Freq PRN Reason Stop Dose Admin Acetaminophen 650 mg 03/01/25 00:26 03/05/25 10:05 Acetaminophen 325 Mg Tablet PO 650 mg Q4H PRN Administration Mild Pain (1-3) or Fever Hydrocodone Bitart/Acetaminophen 1 tab 03/01/25 06:49 03/05/25 11:39 Hydrocodone/Acetaminophen (*Crx) 5-325 Mg Tablet PO 1 tab Q6H PRN Administration Pain Rated 7-10 Ascorbic Acid 1,000 mg 03/02/25 09:00 03/05/25 10:06 Ascorbic Acid 500 Mg Tablet PO 1,000 mg QAM OTIS Administration Aspirin 81 mg 03/01/25 09:00 03/05/25 10:05 Aspirin 81 Mg Enteric Tablet PO 81 mg DAILY OTIS Administration Atorvastatin Calcium 40 mg 03/01/25 21:00 03/04/25 19:58 Atorvastatin 40 Mg Tablet PO 40 mg HS OTIS Administration Brinzolamide 1 drop 03/01/25 09:00 03/05/25 10:06 Brinzolamide 1% Ophth Susp 10 Ml RIGHT EYE 1 drop Q12HR OTIS Administration Calcium Carbonate 500 mg 03/01/25 13:22 03/02/25 22:27 Calcium Carbonate (Tums) 500 Mg (200 Mg Elemental) PO 500 mg TID PRN Administration Indigestion Cholestyramine Resin 4 gm 03/01/25 09:00 03/05/25 10:05 Cholestyramine (W/ Sugar) 4 Gm Powd.Pack PO 4 gm BID OTIS Administration Enoxaparin Sodium 40 mg 03/03/25 11:30 03/05/25 10:05 Enoxaparin 40 Mg/0.4 Ml Syringe SUB-Q 40 mg DAILY OTIS Administration Fluticasone Propionate 2 spray 03/02/25 09:00 03/05/25 10:07 Fluticasone Propionate 0.05% Na Spr 16 Gm Btl (*Bkc) NASAL 2 spray DAILY OTIS Administration Latanoprost 1 drop 03/01/25 21:00 03/04/25 19:58 Latanoprost 0.005% Op Soln 2.5 Ml Btl RIGHT EYE 1 drop QHS OTIS Administration Lisinopril 10 mg 03/01/25 09:00 03/05/25 10:06 Lisinopril 10 Mg Tablet PO 10 mg DAILY OTIS Administration Loperamide HCl 2 mg 03/01/25 02:53 Loperamide Hcl 2 Mg Capsule PO Q6H PRN Loose Stool Magnesium Oxide 200 mg 03/01/25 21:00 03/04/25 19:58 Magnesium Oxide 200 Mg Tablet PO 200 mg HS OTIS Administration Melatonin 9 mg 03/01/25 21:00 03/04/25 19:58 Melatonin 3 Mg Tablet PO 9 mg HS OTIS Administration Morphine Sulfate 2 mg 03/02/25 15:30 03/03/25 21:01 Morphine Sulfate (*Crx) 4 Mg/Ml Inj IV PUSH 2 mg Q4H PRN Administration Pain Rated 7-10 Ondansetron HCl 4 mg 03/04/25 17:38 Ondansetron Inj 4 Mg/2 Ml Vial IV PUSH Q6H PRN Nausea And Vomiting Pantoprazole Sodium 40 mg 03/01/25 09:00 03/05/25 10:06 Pantoprazole 40 Mg Tablet PO 40 mg Q12HR OTIS Administration Sodium Chloride 1 gm 03/03/25 18:35 03/05/25 10:06 Sodium Chloride 1 Gm Tablet PO 1 gm BID OTIS Administration Vitamin B Complex 1 cap 03/01/25 13:20 03/05/25 11:39 Vitamin B Complex Capsule PO 1 cap 1200 OTIS Administration Vitamin E 400 unit 03/02/25 09:00 03/05/25 10:06 Vitamin E 400 Unit Capsule PO 400 unit DAILY OTIS Administration Radiology Results: ITS Impressions Chest X-Ray 03/01/25 10:28 Impression: Mild CHF. No pneumothorax Lumbar Spine CT 03/02/25 12:03 Impression: No acute fracture. Severe degenerative changes. Lower Extremity CT 03/02/25 12:06 IMPRESSION: 1. Moderate sized lipohemarthrosis at the left knee and small amount of intramedullary blood within the distal left femur with suspicion for mildly displaced fracture at the lateral femoral condyle. Assessment is however significantly limited at this location due to metallic streak artifact from the left total knee arthroplasty. Would consider repeat radiographs of the left knee including oblique and sunrise projections. Knee X-Ray 03/03/25 13:04 IMPRESSION: 1. Left total knee arthroplasty with periprosthetic fracture at the distal left femur with 8 mm lateral displacement of the fragment of the nonarticular lateral surface of the lateral femoral condyle. No evident lucency along the interface between the bone and the femoral component of the arthroplasty to suggest loosening. Labs Labs: Laboratory Tests 03/05/25 04:39 03/05/25 04:39 Calcium 8.7 Total Bilirubin 0.6 AST 26 ALT 20 Alkaline Phosphatase 76 Total Protein 5.8 L Albumin 2.9 L
[2025-03-05 11:08] LABS: Immunoglobulin A, Qn 98 mg/dL (64-422); Immunoglobulin G, Qn 557 mg/dL (586-1602); Immunoglobulin M, Qn 66 mg/dL (26-217)
[2025-03-05] MEDS: VITAMIN B COMPLEX CAPSULE 1 CAP PO (11:39)
[2025-03-05 11:40] VITALS: BP 148/76; PULSE 103; RESP 16; TEMP 37.1; O2SAT 96
--- NOTE | 2025-03-05 11:48 | PM.DS ---
DS: Admitting Diagnosis Discharge Date 03/05/25 Admitting Diagnosis - fall - left hip and knee pain - hyponatremia - hypertension - CKD - vascular dementia - anemia DS: Discharge Diagnosis Discharge Diagnosis (1) Closed left femoral fracture: Code(s): S72.92XA - Unspecified fracture of left femur, initial encounter for closed fracture Status: Acute (2) Fall from ground level: Code(s): W18.30XA - Fall on same level, unspecified, initial encounter Status: Acute (3) Contusion of hip, left: Qualifiers: Encounter type: initial encounter Qualified Code(s): S70.02XA - Contusion of left hip, initial encounter Code(s): S70.02XA - Contusion of left hip, initial encounter Status: Acute (4) Acute hyponatremia: Code(s): E87.1 - Hypo-osmolality and hyponatremia Status: Acute (5) Hypertension: Code(s): I10 - Essential (primary) hypertension Status: Acute (6) CKD (chronic kidney disease): Code(s): N18.9 - Chronic kidney disease, unspecified Status: Acute (7) Vascular dementia: Qualifiers: Dementia behavioral or psychological symptom: with anxiety Dementia severity: mild Qualified Code(s): F01.A4 - Vascular dementia, mild, with anxiety Code(s): F01.50 - Vascular dementia, unspecified severity, without behavioral disturbance, psychotic disturbance, mood disturbance, and anxiety Status: Acute (8) Anemia: Code(s): D64.9 - Anemia, unspecified Status: Acute DS: Summary Hospital Course Reason for hospitalization: - fall - left hip and knee pain - hyponatremia - hypertension - CKD - vascular dementia - anemia Hospital Course: Patient is an 89-year-old female with past medical history of 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 02/27/2025, CVA (2023), vascular dementia, essential hypertension, glaucoma, GERD, IBS with diarrhea and chronic gait instability ambulates with a walker fell at home. Patient was admitted for intractable left hip and left knee pain. Initial x-rays did not show any acute fracture however repeat CT and x-ray of left lower extremity showed moderately displaced periprosthetic femur fracture. Orthopedic surgery was consulted and recommended that patient remain in the left knee immobilizer at all times in remained nonweightbearing to the left lower extremity. PT/OT was consulted and recommended half-way facility. She will follow up with Orthopedic surgery, Dr. Newman, in 1 week from discharge. Continue Lovenox for DVT prophylaxis. Patient also found to have acute hyponatremia with sodium 124 on admission. This was likely multifactorial in setting of poor p.o. intake and pain. She was given IV fluids with minimal improvement. Nephrology was consulted and started sodium tablets with improvement patient's sodium. Recommend to continue sodium tablets on discharge in reach check BMP in 2-3 days. Patient also noted to have down trending hemoglobin. This may have been secondary to hemarthrosis noted on imaging. Hemoglobin trended down to 9.8, but now remains stable. No signs of active bleeding. Recommend repeat CBC in 2-3 days. Patient was discharged to [facility] bed in stable condition. Time Spent with Patient Time attestation: Total time spent providing and/or coordinating discharge services: Time spent: Less than 30 minutes Exam Narrative: General: NAD Eyes: EOMI ENT: neck supple Cardiovascular: Regular rate and rhythm Respiratory: Clear to auscultation, respirations even and unlabored on RA Gastrointestinal: Soft, non tender Genitourinary: no suprapubic tenderness Musculoskeletal: left leg in in knee immobilizer Skin: warm, dry Neuro: Alert. Psych: Mood appropriate DS: Data Data Completed and Pending Completed studies during hospitalization: ITS Impressions Chest X-Ray 03/01/25 10:28 Impression: Mild CHF. No pneumothorax Lumbar Spine CT 03/02/25 12:03 Impression: No acute fracture. Severe degenerative changes. Lower Extremity CT 03/02/25 12:06 IMPRESSION: 1. Moderate sized lipohemarthrosis at the left knee and small amount of intramedullary blood within the distal left femur with suspicion for mildly displaced fracture at the lateral femoral condyle. Assessment is however significantly limited at this location due to metallic streak artifact from the left total knee arthroplasty. Would consider repeat radiographs of the left knee including oblique and sunrise projections. Knee X-Ray 03/03/25 13:04 IMPRESSION: 1. Left total knee arthroplasty with periprosthetic fracture at the distal left femur with 8 mm lateral displacement of the fragment of the nonarticular lateral surface of the lateral femoral condyle. No evident lucency along the interface between the bone and the femoral component of the arthroplasty to suggest loosening. Labs on day of discharge: Labs from last 24 hours 03/05/25 03/04/25 03/03/25 04:39 04:55 04:54 WBC 11.7 H RBC 3.22 L Hgb 10.2 L Hct 31.2 L MCV 96.9 MCH 31.7 MCHC 32.7 RDW 13.0 Plt Count 375 MPV 10.2 Immature Gran % (Auto) 1.4 H Neut % (Auto) 70.2 Lymph % (Auto) 9.6 L [place] % (Auto) 14.1 H Eos % (Auto) 4.3 Baso % (Auto) 0.4 Lymph # (Auto) 1.12 [place] # (Auto) 1.7 H Eos # (Auto) 0.5 H Baso # (Auto) 0.1 Abs Immat Gran (auto) 0.16 H Absolute Neuts (auto) 8.2 H Absolute Nucleated RBC 0.000 Nucleated RBC % 0.0 Sodium 130 L Potassium 4.2 Chloride 99 Carbon Dioxide 25 Anion Gap 6 BUN 14 Creatinine 0.67 L Estim Creat Clear Calc 57 Estimated GFR > 60 Glucose 108 Calcium 8.7 Ferritin 316.00 H Total Bilirubin 0.6 AST 26 ALT 20 Alkaline Phosphatase 76 Total Protein 5.8 L Total Protein (PEP) 4.9 L Albumin 2.9 L Albumin (PEP) 2.4 L Globulin (PEP) 2.5 Albumin/Globulin Ratio 1.0 Mphad-2-Bbbgzgcfe 0.5 H Qtyrm-5-Yaxrszvec 0.9 Beta Globulins 0.6 L Gamma Globulins 0.5 PEP Comment Comment Vitamin B12 645.0 Folate 16.3 IgG 557 L IgA 98 IgM 66 Pr Electrophoresis MSpike Not observed CHANELLE Interpretation Comment Discharge Plan Discharge Attending physician on discharge: Dominguez Marquez Consulting providers: Zeke Kiser; Mike Newman; Pratima Cannon; Juliana Silveira Discharging Clinician: Juliana Silveira Anticipated Discharge Date/Time: 03/05/25 11:42 Patient Disposition: Hospital Swing Bed Activity: other - see discharge instructions Diet: regular Discharge Instructions: Patient to remain NWB LLE for 4 weeks with knee immobilizer on at all times. Follow-up with Dr. Newman in 1 week from discharge. Continue Lovenox for DVT prophylaxis while at rehab. Patient's BP trend has been a little high which could be due to pain or salt tablets. Monitor and consider increasing lisinopril or reducing salt tabs if sodium level stable. Recheck BMP and CBC in 2-3 days. Patient had recent pacemaker placed at [facility] 02/27/25 due to high-grade AV block. Patient was unsure about her follow-up for this. Patient Instructions: Antibiotic Form Patient Language: Barbadian Stand Alone Forms: General Discharge Information Discharge Medications: New enoxaparin [Lovenox] 40 mg/0.4 mL Syringe 40 mg subcut DAILY 30 Days Qty: 12 0RF sodium chloride 1,000 mg Tablet,Soluble 1,000 mg PO BID Qty: 60 0RF Continued loperamide [Anti-Diarrheal (loperamide)] 2 mg tablet 2 mg PO Q6H PRN (Reason: loose stool) Qty: 90 3RF lisinopril 20 mg tablet 10 mg PO DAILY magnesium 200 mg tablet 300 mg PO HS flaxseed oil 1,000 mg capsule 1,000 mg PO HS calcium citrate 500 mg tablet, effervescent 500 mg PO 1200 ascorbic acid (vitamin C) 1,000 mg capsule 1 g PO 1200 potassium 99 mg tablet 99 mg PO DAILY A,C,B-tieq-ldescsi-copr-lutein 300 mcg-200 mg- 27 mg tablet 1 tablet PO BID vitamin B complex Tablet 1 tablet PO 1200 vitamin E 268 mg (400 unit) capsule 268 mg PO DAILY fluticasone propionate 50 mcg/actuation spray,suspension 2 spray INTRANASAL DAILY cholestyramine (with sugar) [Questran] 4 gram powder 4 g PO BID Qty: 60 11RF Rx Instructions: administer w/meal; avoid other meds within 1hr before or 4-6hr after dose Dissolve in 8 oz of liquid and drink before a meal latanoprost 0.005 % drops 1 drp RIGHT EYE QPM Rx Instructions: Administer 1 drop into the right eye nightly calcium carbonate 500 mg calcium (1,250 mg) tablet 500 mg PO TID PRN (Reason: indigestion) dexlansoprazole [Dexilant] 60 mg capsule,biphase delayed releas 60 mg PO BID melatonin 3 mg Tablet 9 mg PO HS Qty: 30 0RF atorvastatin 40 mg tablet 40 mg PO HS Qty: 30 0RF brinzolamide [Azopt] 1 % drops,suspension 1 drp RIGHT EYE BID Qty: 30 0RF aspirin 81 mg tablet,delayed release (DR/EC) 81 mg PO DAILY Qty: 30 0RF Date of admission: 03/01/25 00:27 Primary Care Provider: Murray,Long Vásquez Admitting Provider: Naye Hester Attending physician on admission: Naye Hester Condition: Improved
--- NOTE | 2025-03-05 13:55 | PM.PNORT ---
Progress Note: A&P Assessment and Plan (1) 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: Code(s): M97.12XA - 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, initial encounter Status: Acute Plan NWB Left LE for 6 wks. Follow up with my office in 2 wks. Knee immob at all times. Subjective Subjective Date/Time Seen: 03/05/25 13:55 Principal diagnosis: Left Femur periprosth fx Interval history: Feeling better today in knee immobilizer Exam Narrative: No change in pe Objective Data Vital Signs Vital Signs: Vital Signs - 24 hr 03/04/25 15:57 03/04/25 20:00 03/04/25 20:33 Temperature 36.4 C 36.5 C Pulse Rate 77 72 Respiratory Rate 18 16 Blood Pressure 133/58 L 153/88 H Pulse Oximetry 97 98 Oxygen Delivery Room Air 03/05/25 00:00 03/05/25 06:15 03/05/25 08:00 Temperature 36.4 C 36.7 C 36.6 C Pulse Rate 92 100 109 H Respiratory Rate 14 16 14 Blood Pressure 139/56 L 140/60 161/71 H Pulse Oximetry 96 94 94 Oxygen Delivery 03/05/25 08:00 03/05/25 11:40 Temperature 37.1 C Pulse Rate 103 H Respiratory Rate 16 Blood Pressure 148/76 H Pulse Oximetry 96 Oxygen Delivery Room Air Intake/Output Intake/Output: Intake & Output 03/02/25 03/03/25 03/04/25 03/05/25 23:59 23:59 23:59 23:59 Intake Total 2623.7 840 1510 670 Output Total 1560 1100 1900 1200 Balance 1063.7 -260 -390 -530 Meds/Results Medications: Active Medications Generic Name Dose Route Start Last Admin Trade Name Freq PRN Reason Stop Dose Admin Acetaminophen 650 mg 03/01/25 00:26 03/05/25 10:05 Acetaminophen 325 Mg Tablet PO 650 mg Q4H PRN Administration Mild Pain (1-3) or Fever Hydrocodone Bitart/Acetaminophen 1 tab 03/01/25 06:49 03/05/25 11:39 Hydrocodone/Acetaminophen (*Crx) 5-325 Mg Tablet PO 1 tab Q6H PRN Administration Pain Rated 7-10 Ascorbic Acid 1,000 mg 03/02/25 09:00 03/05/25 10:06 Ascorbic Acid 500 Mg Tablet PO 1,000 mg QAM OTIS Administration Aspirin 81 mg 03/01/25 09:00 03/05/25 10:05 Aspirin 81 Mg Enteric Tablet PO 81 mg DAILY OTIS Administration Atorvastatin Calcium 40 mg 03/01/25 21:00 03/04/25 19:58 Atorvastatin 40 Mg Tablet PO 40 mg HS OTIS Administration Brinzolamide 1 drop 03/01/25 09:00 03/05/25 10:06 Brinzolamide 1% Ophth Susp 10 Ml RIGHT EYE 1 drop Q12HR OTIS Administration Calcium Carbonate 500 mg 03/01/25 13:22 03/02/25 22:27 Calcium Carbonate (Tums) 500 Mg (200 Mg Elemental) PO 500 mg TID PRN Administration Indigestion Cholestyramine Resin 4 gm 03/01/25 09:00 03/05/25 10:05 Cholestyramine (W/ Sugar) 4 Gm Powd.Pack PO 4 gm BID OTIS Administration Enoxaparin Sodium 40 mg 03/03/25 11:30 03/05/25 10:05 Enoxaparin 40 Mg/0.4 Ml Syringe SUB-Q 40 mg DAILY OTIS Administration Fluticasone Propionate 2 spray 03/02/25 09:00 03/05/25 10:07 Fluticasone Propionate 0.05% Na Spr 16 Gm Btl (*Bkc) NASAL 2 spray DAILY OTIS Administration Latanoprost 1 drop 03/01/25 21:00 03/04/25 19:58 Latanoprost 0.005% Op Soln 2.5 Ml Btl RIGHT EYE 1 drop QHS OTIS Administration Lisinopril 10 mg 03/01/25 09:00 03/05/25 10:06 Lisinopril 10 Mg Tablet PO 10 mg DAILY OTIS Administration Loperamide HCl 2 mg 03/01/25 02:53 Loperamide Hcl 2 Mg Capsule PO Q6H PRN Loose Stool Magnesium Oxide 200 mg 03/01/25 21:00 03/04/25 19:58 Magnesium Oxide 200 Mg Tablet PO 200 mg HS OTIS Administration Melatonin 9 mg 03/01/25 21:00 03/04/25 19:58 Melatonin 3 Mg Tablet PO 9 mg HS OTIS Administration Morphine Sulfate 2 mg 03/02/25 15:30 03/03/25 21:01 Morphine Sulfate (*Crx) 4 Mg/Ml Inj IV PUSH 2 mg Q4H PRN Administration Pain Rated 7-10 Ondansetron HCl 4 mg 03/04/25 17:38 Ondansetron Inj 4 Mg/2 Ml Vial IV PUSH Q6H PRN Nausea And Vomiting Pantoprazole Sodium 40 mg 03/01/25 09:00 03/05/25 10:06 Pantoprazole 40 Mg Tablet PO 40 mg Q12HR OTIS Administration Sodium Chloride 1 gm 03/03/25 18:35 03/05/25 10:06 Sodium Chloride 1 Gm Tablet PO 1 gm BID OTIS Administration Vitamin B Complex 1 cap 03/01/25 13:20 03/05/25 11:39 Vitamin B Complex Capsule PO 1 cap 1200 OTIS Administration Vitamin E 400 unit 03/02/25 09:00 03/05/25 10:06 Vitamin E 400 Unit Capsule PO 400 unit DAILY OTIS Administration Radiology Results: ITS Impressions Chest X-Ray 03/01/25 10:28 Impression: Mild CHF. No pneumothorax Lumbar Spine CT 03/02/25 12:03 Impression: No acute fracture. Severe degenerative changes. Lower Extremity CT 03/02/25 12:06 IMPRESSION: 1. Moderate sized lipohemarthrosis at the left knee and small amount of intramedullary blood within the distal left femur with suspicion for mildly displaced fracture at the lateral femoral condyle. Assessment is however significantly limited at this location due to metallic streak artifact from the left total knee arthroplasty. Would consider repeat radiographs of the left knee including oblique and sunrise projections. Knee X-Ray 03/03/25 13:04 IMPRESSION: 1. Left total knee arthroplasty with periprosthetic fracture at the distal left femur with 8 mm lateral displacement of the fragment of the nonarticular lateral surface of the lateral femoral condyle. No evident lucency along the interface between the bone and the femoral component of the arthroplasty to suggest loosening. Labs Labs: Laboratory Results - last 24 hr 03/03/25 03/05/25 04:54 04:39 WBC 11.7 H RBC 3.22 L Hgb 10.2 L Hct 31.2 L MCV 96.9 MCH 31.7 MCHC 32.7 RDW 13.0 Plt Count 375 MPV 10.2 Immature Gran % (Auto) 1.4 H Neut % (Auto) 70.2 Lymph % (Auto) 9.6 L [place] % (Auto) 14.1 H Eos % (Auto) 4.3 Baso % (Auto) 0.4 Lymph # (Auto) 1.12 [place] # (Auto) 1.7 H Eos # (Auto) 0.5 H Baso # (Auto) 0.1 Abs Immat Gran (auto) 0.16 H Absolute Neuts (auto) 8.2 H Absolute Nucleated RBC 0.000 Nucleated RBC % 0.0 Sodium 130 L Potassium 4.2 Chloride 99 Carbon Dioxide 25 Anion Gap 6 BUN 14 Creatinine 0.67 L Estim Creat Clear Calc 57 Estimated GFR > 60 Glucose 108 Calcium 8.7 Total Bilirubin 0.6 AST 26 ALT 20 Alkaline Phosphatase 76 Total Protein 5.8 L Total Protein (PEP) 4.9 L Albumin 2.9 L Albumin (PEP) 2.4 L Globulin (PEP) 2.5 Albumin/Globulin Ratio 1.0 Uypoj-4-Lilzutado 0.5 H Gyngc-1-Zzqwpmvsk 0.9 Beta Globulins 0.6 L Gamma Globulins 0.5 PEP Comment Comment IgG 557 L IgA 98 IgM 66 Pr Electrophoresis MSpike Not observed CHANELLE Interpretation Comment
[2025-03-05 14:08] LABS: Albumin, U 32.1 % (.); Alpha-1-Globulin, U 1.6 % (.); Alpha-2-Globulin, U 22.8 % (.); Beta Globulin, U 21.0 % (.); Gamma Globulin, U 22.5 % (.); Immunofixation (IFE), Urine Comment: (.)
[2025-03-08 04:06] LABS: Osmolality, Urine 456 mOsmol/kg (.)
[2025-03-09 07:09] LABS: Osmolality, Serum 257 mOsmol/kg (280-301)
== END 2025-03-05 16:01 | disposition swing bed (61) | DRG 534 ==
LOC: ANHED 03-01 00:41 → ANH2MED 03-01 01:00
PROVIDERS: Internal Medicine Nephrology; Physician Assistant; Admitting Provider Internal Medicine; Emergency Provider Emergency Medicine; PCP Family Medicine; Visit Provider Physician Assistant
DX: S72.402A Unspecified fracture of lower end of left femur, initial encounter for closed fracture (principal); M97.12XA Periprosthetic fracture around internal prosthetic left knee joint, initial encounter; E87.1 Hypo-osmolality and hyponatremia; I12.9 Hypertensive chronic kidney disease with stage 1 through stage 4 chronic kidney disease, or unspecified chronic kidney disease; N18.9 Chronic kidney disease, unspecified; K44.9 Diaphragmatic hernia without obstruction or gangrene; K21.9 Gastro-esophageal reflux disease without esophagitis; K58.0 Irritable bowel syndrome with diarrhea; K22.2 Esophageal obstruction; R26.89 Other abnormalities of gait and mobility; H40.9 Unspecified glaucoma; F01.50 Vascular dementia, unspecified severity, without behavioral disturbance, psychotic disturbance, mood disturbance, and anxiety; W18.09XA Striking against other object with subsequent fall, initial encounter; Z96.643 Presence of artificial hip joint, bilateral; Z96.653 Presence of artificial knee joint, bilateral; Z79.82 Long term (current) use of aspirin; Z95.0 Presence of cardiac pacemaker; Z86.73 Personal history of transient ischemic attack (TIA), and cerebral infarction without residual deficits; Z98.1 Arthrodesis status
CPT/HCPCS: 36415; 71046; 72131; 73502; 73552; 73562; 73564; 73700; 80048; 80053; 81001; 81050; 82570; 82607; 82728; 82746; 82784; 83540; 83550; 83735; 83930; 83935; 84155; 84156; 84165; 84166; 84300; 84443; 84540; 85025; 86334; 86335; 93005; 96360; 97162; 97165; 97166; 99285; A9270; J1650; J1885; J2270; J7030; L1830

== ENCOUNTER 2025-04-08 14:37 | Outpatient (CLI) | payer MEDICARE, SELFPAY ==
--- OUTSIDE RECORDS SUMMARY | 2016-01-17 08:00 | XMS_ITS | Continuity of Care Document ---
Author Organization [facility] Address [address] [place] [address] Phone Care Team Providers Care Senior Science Consultant Name Role Phone No Information Unavailable Unavailable Advance Directives Directive Yes / No Effective Date File Name No Information Encounters Encounter Description Practice Location Reason(s) For Visit Diagnoses Date Provider Providers Copied on Encounter [facility] , [address], [place], [address], tel:[phone] [facility] No Information No Information Referring Provider: Charanjit Pascal, [address] , [place], [address] . tel:[phone] Family History Family Member Type Diagnosis Age At Onset No Information Payers Payer name Insurance type Covered green party ID Authoriza tion(s) [facility] Medicare Advantage PPO OT [id number] Social History Type Description Quantity Date Captured Comments Sex Female Smoking Status No Information Chief Complaint And Reason For Visit No Information Reason For Referral Reason For Referral No Information History Of Present Illness Encounter Date Complaint History Of Prese nt Illness No Information Functional Status Date Functional Assessmen t No Information Instructions Date Instruction Additional Infor mation No Information Assessments Type Assessment Date No Information Patient Care Teams Name Effective Dates (start - stop) Status Members No Information
--- OUTSIDE RECORDS SUMMARY | 2017-09-27 02:45 | XMS_ITS | Continuity of Care Document ---
Author Organization [facility] Address [address] [place] [phone] Phone Care Team Providers Care Inspection Machine Tender Name Role Phone Jovon Freedman MD Unavailable Unavailable Allergies, Adverse Reactions, Alerts Substance Reaction Status Criticality No Known Allergies Active No Inform ation Medications Medication Instructions Dosage Effective Dates (start - stop) Status Comments Azopt 1 % eye drops,suspension instill by Topical route every daily OU - Active Dexilant 60 mg capsule, delayed release - Active lisinopril 20 mg-hydrochlorothi azide 25 mg tablet - Active vitamin E 100 unit capsule - Active Vitamin D3 1,000 unit tablet - Active Vitamin C 1,000 mg tablet - Active turmeric root extract 500 mg capsule - Active magnesium 30 mg tablet - Active Stool Softener 50 mg capsule - Active Combigan 0.2 %-0.5 % eye drops - Active Cinnamon 500 mg capsule - Active Calcium 800 ORAL TABLET - Active latanoprost 0.005 % eye drops instill 1 drop by ophthalmic route every day into affected eye(s) in the evening 1.00 drop - Active Azopt 1 % eye drops,suspension instill by Topical route every daily OS Not Available - No Longer Active Procedures Procedure Date Special Eye Evaluation Visual Field Examination(s) SCODI, Posterior Segment Corneal Pachymetry Eye Exam & Treatment Fundus Photography W/ Report Office/outpatient Visit, Est Eye Exam, New Patient No Charge Refraction Fundus Photography W/ Report After Cataract Laser Surgery Eye Exam Established Pt Advance Directives Directive Yes / No Effective Date File Name No Information Encounters Encounter Description Practice Location Reason(s) For Visit Diagnoses Date Provider Providers Copied on Encounter [facility], [facility] [address], [place], [place], [id number], [place] tel:[phone] [place] Glaucoma Eval (chief complaint) Dry eye syndrome of bilateral lacrimal glandsPresence of pseudophakiaSt able central retinal vein occlusion of right eyeVitreous degeneration, right eyePrimary open-angle glaucoma, right eye, severe stagePrimary open-angle glaucoma, left eye, moderate stage 8 Tano Sigala. [address], [place], [place], [id number], [place]. tel:[phone] [facility], [facility] [address], [place], [place], [address], [place] tel:[phone] [facility] [place] [facility] No Information 8 Rafael Verma. [address] [place], [address], [place]. tel:[phone] Office/outpa tient Visit, Est [facility], [address], [place], [place], [address], [place] tel:[phone] [facility] [place] Blurry vision (chief complaint) No Information 3 5 Ren[place] Jeovanny. [facility] [employer], [address], [place], [place], [address], [place]. tel:[phone] [facility], [facility] [address], [place], [place], [address], [place] tel:[phone] [facility] [place] blurry vision (chief complaint) No Information 2- 5 [place] Jeovanny. [facility] [employer], [address], [place], [place], [address], [place]. tel:[phone] [facility], [address], [place], [place], [address], [place] tel:[phone] SEC [place] Maki No Information [address], [address], [place], [place], [address], [place]. tel:[phone] [facility], [address], [place], [place], [address], [place] tel:[phone] [facility] No Information [address] Jonathanamadeo Medrano. [address] , [address], [place], [address], [place]. tel:[phone] Family History Family Member Type Diagnosis Age At Onset Mother Problem (finding) glaucoma Sister Problem (finding) Diabetes mellitus Payers Payer name Insurance type Covered democrat ID Gregg josue(s) [facility] [id number] Social History Type Description Quantity Date Captured Comments Alcohol Use Details No Caffeine Use Details 2 cups per day Tobacco Use Status Current non-smoker 18 Smoking Status Never smoker Non-Smoking Tobacco Use Details : No Details Available : No Details Available Sex Female Chief Complaint And Reason For Visit From encounter dated '09/27/2017 08:45'. Glaucoma Eval (chief complaint). Description: The 82 year old female presents for evaluation of Glaucoma Eval in the right eye and left eye. Hx of PC IOL OU, PCF OU, Stroke behind OD, and Glc. Pt using Latanoprost OU, Combigan OS bid, and Azopt OU bid. Pt states at her last eye Dr harjinder her IOP was fluctuating 41,5,18. Pt was sent to a specialist the same day and was given an eye drop (she thinks i t may have been a steroid). When pt got home from that appt she felt dizzy and dropped" in her garage. Pt went to PCP the next day and was told her BP was very low. Pt also as daily episodes of loosing vision. Pt states that white will look like satin, and everything is blurry, like when the TV fogs the screen. Pt states this started in August and it happens in the AM and PM, she also gets a pain above OS when this is happening. It lasts for about 1hr. Reason For Referral Reason For Referral No Information Plan Of Treatment Date Type Action Status Referral Ordered: Jose Andres MD (related to Primary open-angle glaucoma, left eye, moderate stage) ordered Referral Referred To: Jose Andres MD [address] [facility] [address] [place], [phone] Ordered: Referrals: Jose Andres MD. Evaluate and treat ordered Referral Referred To: Tremayne Barahona [address] [place], [phone] Ordered: Referrals: Ophthalmology. Tremayne Barahona. Evaluate and treat ordered History Of Present Illness Encounter Date Complaint History Of Prese nt Illness Glaucoma Eval The 82 year old female presents for evaluation of Glaucoma Eval in the right eye and left eye. Hx of PC IOL OU, PCF OU, Stroke behind OD, and Glc. Pt using Latanoprost OU, Combigan OS bid, and Azopt OU bid. Pt states at her last eye Dr grande her IOP was fluctuating 41,5,18. Pt was sent to a specialist the same day and was given an eye drop (she thinks it may have been a steroid). When pt got home from that appt she felt dizzy and dropped in her garage. Pt went to PCP the next day and was told her BP was very low. Pt also as daily episodes of loosing vision. Pt states that white will look like satin, and everything is blurry, like when the TV fogs the screen. Pt states this started in August and it happens in the AM and PM, she also gets a pain above OS when this is happening. It lasts for about 1hr. Blurry vision The 79 year old female presents for an office visit for blurred v/a that comes and goes OS only. Pt states this has been going on for a year now, states that back in October Dr. Pulido fixed the issue for a short time but the issue has came back. Pt denies any pain or discomfort at this time. Pt states v/a is blurry. Pt uses Azopt BID OU and Latanoprost QHS OU. 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 blurry vision The 79 year old female presents for a YAG PC OS per Dr. Tidwell. Patient c/o blurry vision OS. Patient had many retina sx OD. Patient uses Azopt bid ou and Latanoprost qhs ou. Functional Status Date Functional Assessmen t No Information Instructions Date Instruction Additional Infor mation Impression/Plan Use of eye drops discussed. Rela mariano to Primary open-angle glaucoma, left eye, moderate stage Follow up - refer to [place] Impression/Plan - In traocular pressure well controlled, tolerating medications. Will continue with same regimen.Discussed vitreous veil OS, explained this is something that would be treated by a retinal specialist. Rec eval with Dr. Barahona for eval and treatment if he feels this is indicated. Letter dictated to Dr. Barahona - Discussed diagnosi s with patient and YAG PC understood for treatment, will proceed with laser treatment today. CSM return to Dr. Tidwell in 2-4 weeks. Letter generated and sent to his office. Rec also seeing Dr. Chapa for retina OD Related to After cataract limiting vision Assessments Type Assessment Date assessment Dry eye syndrome of bilateral la crimal glands assessment Presence of pseudophakia 2017 assessment Stable central retinal vein occl usion of right eye assessment Vitreous degeneration, right eye assessment Primary open-angle glaucoma, rig ht eye, severe stage assessment Primary open-angle glaucoma, lef t eye, moderate stage Patient Care Teams Name Effective Dates (start - stop) Status Members No Information
--- NOTE | ~2025-04-08 | XR_ITS ---
EXAMINATION: XR knee LT min 4V, 04/08/2025 15:00 RECONDITIONING ASSOCIATE HISTORY: PAIN IN LEFT KNEE AND LEG COMPARISON: No comparisons available. Findings: No acute fracture or malalignment. Arthroplasty intact Soft tissues unremarkable. Impression: No acute fracture or malalignment. Reviewed, dictated and finalized at location P. NDITIONING ASSOCIATE Impression: No acute fracture or malalignment.
--- NOTE | ~2025-04-08 | XR_ITS ---
PROCEDURE(S): XR tibia fibula LT 2V, XR knee LT min 4V INDICATION(S): Pain COMPARISON(S): March 03 TECHNIQUE: 4 radiographic images of the knee and AP and lateral views of the tibia/fibula were submitted for interpretation. FINDINGS: Bones: There are no fractures seen. 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 Prosthetic devices have an unchanged alignment. Joints: There are no dislocations identified. IMPRESSION: No acute abnormalities are seen. Reviewed, dictated and finalized at location A. ANALYST DEVELOPER
--- OUTSIDE RECORDS SUMMARY | 2025-04-08 20:35 | XMS_ITS | Clinical Summary ---
Author Organization [facility] Address [address] [place] [address] Care Team Providers Care Computer Typesetter Name Role Phone Long Gao MD Primary Care Provider [phone] Allergies No known active allergies Medications AZOPT 1 % ophthalmic suspension Administer 1 drop into the right eye 2 (two) times a day 7 Active calcium carbonate (TUMS) 500 mg (200 mg elemental) chewable tablet Take 2 tablet/chew tab (1,000 mg total) by mouth 6 Active latanoprost (XALATAN) 0.005 % ophthalmic solution Administer 1 drop into the right eye nightly 7 Active fluticasone propionate (FLONASE) 50 mcg/actuation nasal spray Administer 2 sprays into each nostril daily 3 each 4 4 Active Additional Information Patient not taking.Reported on 10/02/2024 aspirin 81 mg enteric coated tabletIndication s:cerebral ischemia Take 1 tablet (81 mg total) by mouth daily 30 tablet 11 4 05/14/20 25 Active lisinopriL (PRINIVIL,ZESTRI L) 20 mg tablet Take 0.5 tablets (10 mg total) by mouth daily 45 tablet 3 5 07/06/19 26 Active cholestyramine (QUESTRAN) 4 gram packet DISSOLVE 1 PACKET IN 8 OZ OF LIQUID AND DRINK BEFORE a MEAL TWICE DAILY 60 g 3 5 Active atorvastatin (LIPITOR) 40 mg tablet Take 1 tablet (40 mg total) by mouth nightly 90 tablet 3 Active Dexilant 60 mg capsule TAKE 1 CAPSULE (60 MG TOTAL) BY MOUTH TWO (2) TIMES a DAY 60 capsule 2 Active apixaban (ELIQUIS) 5 mg tabletIndication s:atrial fibrillation Take 1 tablet (5 mg total) by mouth 2 (two) times a day 180 tablet 3 Active Active Problems Problem Noted Date Diagnosed Date Cardiac pacemaker 02/26/2025 AV block, 3rd degree 02/22/2025 Sinus bradycardia 02/22/2025 AV block, 2nd degree 02/22/2025 Syncope and collapse 02/21/2025 Fall 02/21/2025 Chronic diarrhea 10/09/2024 Assessment & Plan (10/09/2024 9:57 AM CDT): Chapin fo choelstryamine and will montior respnose. No increased diarrhea. BMI 30.0-30.9,adult 10/09/2024 Obesity (BMI 30.0-34.9) 10/09/2024 Hospital discharge follow-up 06/04/2024 Assessment & Plan (06/04/2024 2:10 PM HOUSEHOLD CHORES): Hospital encounter, labs, and imaging reviewed prior and during appointment. Improving with therapy at home. Continues to follow. Still having expressive aphasia. Cerebrovascular accident (CVA) 05/17/2024 Assessment & Plan (10/09/2024 9:56 AM CDT): Secondary prevention for aspirina nd atoravstatin. WIll monitor response. Reivewed fall prevention. Acute stroke due to ischemia 05/11/2024 Assessment & Plan (06/04/2024 2:08 PM HOUSEHOLD CHORES): Slowly improving but still having expressive aphasia. Will continue with PT, OT, and ST. Will continue to monitor. L sided weakness getting better. Using walker and cane when at home. Altered mental status, unspe cified altered mental status type 05/10/2024 Stage 3a chronic kidney disease 05/10/2024 Assessment & Plan (10/09/2024 9:58 AM CDT): Reivewed bp control and will montior erspnose. Class 1 obesity due to exces s calories with body mass index (BMI) of 30.0 to 30.9 in adult 05/10/2024 Assessment & Plan (06/04/2024 2:06 PM HOUSEHOLD CHORES): Weight appropriate for patient. Ear congestion, bilateral 03/26/2024 Assessment & Plan (03/26/2024 3:04 PM CDT): Ears clear on examination. Recommend OTC flonase. RTC if worsening or resolving. Mixed hyperlipidemia 02/19/2024 Assessment & Plan (02/19/2024 2:06 PM CDT): Lipid panel stable and will continue on Lisinopril Need for influenza vaccination 02/19/2024 Assessment & Plan (02/19/2024 2:06 PM CDT): [facility] Medicare annual wellness visit, subsequent 02/18 Assessment & Plan (02/19/2024 2:08 PM CDT): In regard to health maintenance, Colonoscopy- sees GI Influenza vaccine- Given in office Pneumococcal vaccine- declined Shingrix vaccine- declined Eat a healthy diet: focus on lean meats and proteins, more fruits, vegetables and whole grains and low in sugars and fats. Limit red meat and avoid processed meat. Maintain a healthy weight; avoid being overweight. Aim for a normal body mass index (BMI) of 18.5-24.9. Help learning to eat healthier, we can set up appointment with flame planer/vaccine specialist. Have an active lifestyle, strive for 30 minutes of moderate exercise 5 times a week and strength or resistance training at least twice a week. Use broad-spectrum (UVA+UVB) sunscreen with SPF 30 or greater, is water resistant, limit time spent in the sun (10 am-4pm), wear hat, wear UV protective clothing, wear sunglasses. Never use a tanning bed. Skin that was irradiated may be more sensitive over your lifetime. Limit alcohol intake, 1 drink per day for a woman and 2 drinks per day for a man. Hemiplegia and hemiparesis f ollowing cerebral infarction affecting left non-dominant side 07/16/2023 Assessment & Plan (06/04/2024 2:10 PM HOUSEHOLD CHORES): Safety reviewed. Compliant with medication regimen. Will continue to monitor. Assessment & Plan (03/26/2024 3:03 PM CDT): Safety reviewed. Handicap placard form completed. She is compliant with her medication regimen. Left-sided weakness 06/06/2022 Pneumonia due to infectious organism, unspecified laterality, unspecified part of lung 05/29/2022 Generalized weakness 05/29/2022 Assessment & Plan (10/09/2024 9:57 AM CDT): Resume strenghthening exercise and HEP. WIll follow response and reviewed fall prevention. Elevated brain natriuretic peptide (BNP) level 1 07/30/2021 Shortness of breath 05/29/2022 Sepsis 04/10/2022 Syncope 04/10/2022 NISA (acute kidney injury) 04/10/2022 Hyponatremia 04/10/2022 Diarrhea of presumed infectious origin 2 Refused influenza vaccine 08/28/2018 Refused pneumococcal vaccine 08/28/2018 Gastroesophageal reflux disease without esophagi tis 05/15/2018 Assessment & Plan (02/19/2024 2:04 PM CDT): GERD is stable and follows with GI. Assessment & Plan (05/15/2018 2:15 PM HOUSEHOLD CHORES): No sx on dexilant bid so we tried to reduce to QD with the result that she within 3 days had hiccups, severe heartburn and N/V. She reinstituted bid dosage and the sx disaoppeared. We conslude that she needs dexilant bid, return prn Lumbar post-laminectomy syndrome-L3 to L5 pedicl e fusion 02/21/2018 Assessment & Plan (10/09/2024 9:57 AM CDT): NO acute changes in bowel/bladder function. No increased back pain and will monitor response. DDD (degenerative disc disease), lumbar L5-S1 Pes anserinus bursitis of left knee 07/12/2017 Low back pain radiating to right leg 06/11/2017 Malaise and fatigue 10/17/2013 Overview (09/07/2016): MALAISE AND FATIGUE NEC Uncontrolled hypertension 10/17/2013 Overview (09/08/2016): HYPERTENSION NOS Assessment & Plan (10/09/2024 9:57 AM CDT): Stable on lisinopril 20mg daily basis and will montior respnose. Assessment & Plan (03/26/2024 3:03 PM CDT): Stable. Continue lisinopril. Will continue to monitor. Assessment & Plan (02/19/2024 2:02 PM CDT): Blood pressure stable and will continue Lisinopril. Osteoarthritis of hip 07/06/2013 Overview (09/07/2016): DJD (degenerative joint disease) of hip Resolved Problems Problem Noted Date Diagnosed Date Resolved Date Moderate malnutrition 06/02/20222023 Severe malnutrition 04/10/2022 07/16/19 24 Encounters Date Type Department Care Team Description 03/24/2025 Telephone [facility] [address] [place] [address] Long Gao MD Additional Services Or Orders 03/16/2025 11:15 AM CDT Ancillary Procedure Diaz Social Science Instructor [address] [place] [phone] AV block, 3rd degree (HCC); Cardiac pacemaker 03/16/2025 Orders Only [employer] [address] [place] [phone] Mingus, Genie Jaspreet, display department manager pacemaker (Primary Dx); Atrial fibrillation, unspecified type (HCC) 03/16/2025 Telephone [employer] [address] [place] [phone] Genie Menjivar RN 03/16/2025 Orders Only [employer] In[employer] [address] [place] [phone] MalecHillary AV block, 3rd degree (HCC) (Primary Dx); Cardiac pacemaker 03/02/2025 JOY IP Outreach [facility] Accountable Care Organization [address] [place] [address] Suellen Mtz LPN 03/01/2025 Orders Only [facility] [place] Health Information Management [address] [place] [address] Scanning, Provider 03/01/2025 Telephone [employer] [address] [place] [phone] Anu Ybarra MA Scheduling Appointments (2 week wound/device check) 03/01/2025 Telephone [facility] [address] [phone] Long Gao MD Medical Question/Miscellan eous 03/01/2025 Orders Only [employer] Science In[employer] [address] [place] [phone] Mague Pina MA Sinus bradycardia (Primary Dx); AV block, 3rd degree (HCC); Cardiac pacemaker in situ 03/01/2025 Orders Only [employer] In[employer] [address] [place] [phone] Mague Pina MA Bradycardia (Primary Dx); Atrial fibrillation, unspecified type (HCC); Cardiac pacemaker in situ; Pacemaker reprogramming/chec k 02/28/2025 7:26 PM CDT - 02/28/2025 11:59 PM CDT Hospital Encounter [facility] Emergency, Room R Discharge Disposition: Discharge to home or self care 02/26/2025 2:23 PM CDT Anesthesia Event [facility] Electrophysiology Lab [address] [place] [phone] Chaka Calvillo Jr., MD Tadros, Hany B., MD 02/26/2025 2:00 PM CDT - 02/26/2025 4:00 PM CDT Surgery [facility] Electrophysiology [facility] [address] [place] [address] Rochelle Thao MD INSERT/REPLACE DUAL LEAD PACEMAKER (PPM) OR IMPLANTABLE CARDIOVERTER-DEFIB RILLATOR (ICD) ELECTRODE WO GENERATOR CHANGE [address] 02/25/2025 ACO Medication Access [address] [address] Desire Wilson CPhT 02/24/2025 6:00 PM CDT Anesthesia Event [facility] Operating Room [address] [place] [phone] Hilario Humphrey MD 02/20/2025 11:44 PM CDT - 02/28/2025 1:07 PM CDT Hospital Encounter [address] [address] Leydi Mcelroy MD Ogunremi, MD Harsh Redding, DO Nate Forrest Kristen Lee, MD Rudomiotov, Olga, MD Chouhan, Lalithkumar K., MD Syncope, unspecified syncope type (Primary Dx); Heart block; Hyperkalemia; Fall, initial encounter; Uncontrolled hypertension; AV block, 3rd degree (HCC); Sinus bradycardia; AV block, 2nd degree; Acute stroke due to ischemia (HCC) Discharge Disposition: Left Against Medical Advice 02/20/2025 11:16 PM CDT - 02/20/2025 11:59 PM CDT Hospital Encounter [facility] Emergency, Room R Discharge Disposition: Discharge to home or self care 01/18/[address] [address] Adriane Rodriguez MA Successful Phone Call (Med adherence) 01/06/2025 Telephone [facility] [address] [phone] Long Gao MD Med Management 01/06/2025 ACO Medication Access [address] [address] Desire Wilson CPhT from Last 3 Months Immunizations Immunization Administration Dates Next Due Influenza, Quadrivalent, Hig h Dose, Preservative Free, Intrr 02/26/2023,06/06/2022,04/06/2020 Influenza, Quadrivalent, Spl it, Preservative Free, Intramuscular 06/06/2022 Influenza, Trivalent, High D ose, Split, Preservative Free, Intramuscular 02/19/2024 Influenza, Unspecified 04/25/2022(Deferr ed: Patient Refused),04/09/2022(Deferred: Patient Refused),06/03/2021(Deferred: Patient Refused),06/03/2021(Deferred: Patient Refused),02/01/2021(Deferred: Patient Refused),02/01/2021(Deferred: Patient Refused),02/01/2021(Deferred: Patient Refused),02/01/2021(Deferred: Patient Refused),08/28/2018(Deferred: Patient Refused),08/28/2018(Deferred: Patient Refused),06/17/2017(Deferred: Patient Refused),06/03/2017(Deferred: Patient Refused),06/03/2017(Deferred: Patient Refused) Arden Reed (J&J) SARS-CoV-2 Vaccination 08/15/2020, 08/15/2020 PPD TEST 06/08/2022 mVisum Sars-Cov-2 Bivalent V accination (12+ YRS) 06/13/2022 Pneumococcal Conjugate PCV 13 08/28/2018 (Deferred: Patient Refused),06/03/2017(Deferred: Patient Refused) Pneumococcal Conjugate Pcv20 03/26/2024(Deferred : Patient Refused) Pneumococcal Polysaccharide PPV23 2018(Deferred: Patient Refused),08/28/2018(Deferred: Patient Refused) Sars-CoV-2, Unspecified 10/04/2021,08/15/2020 Sars-cov-2 Covid-19 Jo Ann, Benjamin cade, Original/misty Ba.1 10/04/2021,08/15/2020 ZOSTER LIVE 08/28/2018(Deferred: Patient Ref used) ZOSTER Recombinant 08/28/2018(Deferred: Patient Refused) Surgical History Surgery Date Site/Laterality Comments OTHER SURGICAL HISTORY osteoarthritis left knee: arthroplassty HIP ARTHROPLASTY Hip replacement KNEE ARTHROPLASTY Bilateral Knee replacement OTHER SURGICAL HISTORY stroke June 2010 OTHER SURGICAL HISTORY x3 eye surgeries OTHER SURGICAL HISTORY Arthrocentesis of the right shoulder subacromial space OTHER SURGICAL HISTORY Left reverse total shoulder BACK SURGERY 06/03/2016 - 06/02/2017 EYE SURGERY 11/01/2017 - 11/30/2017 glaucoma CARDIAC ELECTROPHYSIOLOGY PROCEDURE 02/26/2025 Chest/N/A Procedure: INSERT/REPLACE DUAL LEAD PACEMAKER (PPM) OR IMPLANTABLE CARDIOVERTER-DEFIBRILLAT OR (ICD) ELECTRODE WO GENERATOR CHANGE 28490; Surgeon: Rochelle Thao MD; Location: [facility]; Service: Cardiovascular; Laterality: N/A; Medical devices from this surgery are in the Medical Devices section. Medical History Medical History Date Comments Hx Other Medical osteoarthritis left knee; Comments: completed therapy wiht good result.; Outcome: improved Hx Other Medical vertigo; Commen ts: APO 10/01/2014 - Hiatal hernia Fatigue Glaucoma Wears glasses Wears dentures Shortness of breath Frequent urination Pain Hypertension treated by PCP Hypertension Family History Medical History Relation Name Comments Cancer Other 1 Family history of Cancer; Diabetes Other 2 Family history of Diabetes mellitus; Heart disease Other 3 Family history of Heart disease; Relation Name Status Comments Other 1 Other 2 Other 3 Social History Tobacco Use Types Packs/Day Years Used Date Smoking Tobacco: Never Smokeless Tobacco: Never Tobacco Cessation:Counseling Given: Not Answered Alcohol Use Standard Drinks/Week Comments No 0 (1 standard drink = 0.6 oz pur e alcohol) Social Connection and Isolation Panel Answer Date Recorded In a typical week, how many times do you talk on the phone with family, friends, or neighbors? Three times a week 05/12/20 How often do you get togethe r with friends or relatives? Three times a week 05/12/2024 How often do you attend [facility] or protestant services? 1 to 4 times per year 05/12/2024 Do you belong to any clubs o r organizations such as islam groups, unions, fraternal or athletic groups, or school groups? No 05/12/2024 How often do you attend meet ings of the clubs or organizations you belong to? Never 05/12/2024 Are you , , di vorced, , never , or living with a partner? 05/12/2024 AUDIT-C Answer Date Recorded Q1: How often do you have a drink containing alc ohol? Never 04/15/2023 Average Number of Drinks Not on file 023 Frequency of Binge Drinking Not on file 04/03 Overall Financial Resource Strain (CARDIA) Answe r Date Recorded How hard is it for you to pa y for the very basics like food, housing, medical care, and heating? Not hard at all 05/12/2024 PHQ-2 Answer Date Recorded PHQ-2 Total Score (If total score is 3 or more points, staff should administer the PHQ-9) 0 06/04/2024 PRAPARE - Transportation Answer Date Re corded In the past 12 months, has l ack of transportation kept you from medical appointments or from getting medications? No 05/03 In the past 12 months, has l ack of transportation kept you from meetings, work, or from getting things needed for daily living? No 05/12/2024 Housing Stability Vital Sign Answer Donte e Recorded In the last 12 months, was t here a time when you were not able to pay the mortgage or rent on time? No 04/16/2022 In the last 12 months, how many places have you lived? 1 04/16/2022 In the last 12 months, was t here a time when you did not have a steady place to sleep or slept in a fdc (including now)? No 04/16/2022 Housing Stability Vital Sign Answer Donte e Recorded In the last 12 months, was t here a time when you were not able to pay the mortgage or rent on time? No 05/12/2024 In the past 12 months, how m any times have you moved where you were living? 0 05/12/2024 At any time in the past 12 m [facility], were you homeless or living in a fdc (including now)? No 05/12/2024 Social Connection and Isolation Panel Answer Date Recorded In a typical week, how many times do you talk on the phone with family, friends, or neighbors? More than three times a week 02/22/2025 How often do you get togethe r with friends or relatives? More than three times a week 02/22/2025 How often do you attend chur ch or protestant services? 1 to 4 times per year 02/22/2025 Do you belong to any clubs o r organizations such as islam groups, unions, fraternal or athletic groups, or school groups? No 02/22/2025 How often do you attend meet ings of the clubs or organizations you belong to? Never 02/22/2025 Are you , , di vorced, , never , or living with a partner? 02/22/2025 Overall Financial Resource Strain (CARDIA) Answe r Date Recorded How hard is it for you to pa y for the very basics like food, housing, medical care, and heating? Not hard at all 02/22/2025 Hunger Vital Sign Answer Date Recorded Within the past 12 months, y ou worried that your food would run out before you got the money to buy more. Never true 02/23/20 25 Within the past 12 months, t he food you bought just didn't last and you didn't have money to get more. Never true 02/22/2025 PRAPARE - Transportation Answer Date Re corded In the past 12 months, has l ack of transportation kept you from medical appointments or from getting medications? No 02/02 In the past 12 months, has l ack of transportation kept you from meetings, work, or from getting things needed for daily living? No 02/22/2025 Housing Stability Vital Sign Answer Donte e Recorded In the last 12 months, was t here a time when you were not able to pay the mortgage or rent on time? No 02/22/2025 In the past 12 months, how m any times have you moved where you were living? 0 02/22/2025 Homeless in the Last Year Not on file 2024 [facility] Utilities Answer Date Recorded In the past 12 months has th e electric, gas, oil, or water company threatened to shut off services in your home? No 02/22/2025 Personal Safety Answer Date Recorded Have you ever been in or are you currently in a harmful physical or emotional relationship or is someone making you feel afraid or unsafe? Denies 02/21/2025 Education Answer Date Recorded What is the highest level of school you have completed or the highest degree you have received? Bachelor's degree (e.g., BA, AB, BS) 05/30/2022 Comments No Sex and Gender Information Value Date Recorded Sex Assigned at Not on file Legal Sex Female 8:58 AM [employer] Gender Identity Not on file Sexual Orientation Not on file Last Filed Vital Signs Vital Sign Reading Time Taken Comments Blood Pressure 134/76 02/28/2025 11:46 AM CDT Pulse 100 02/28/2025 11:46 AM CDT Temperature 36.7 C (98.1 F) 02/28/2025 11:46 AM CDT Respiratory Rate 18 02/28/2025 11:46 AM CDT Oxygen Saturation 92% 02/28/2025 11:46 AM CDT Inhaled Oxygen Concentration - - Weight 89 kg (196 lb 3.4 oz) 02/28/2025 4:26 AM CDT Height 170.2 cm (5' 7) 02/21/2025 2:46 PM CDT Body Mass Index 30.73 02/21/2025 2:46 PM CDT Plan of Treatment Health Maintenance Due Date Last Done Comments Osteoporosis Screening-Bone Density Scan 1935 DTaP/Tdap/Td Vaccine (1 - Tdap) 1948 Hepatitis B Screening 1955 Pneumococcal vaccine 65+ (1 of 2 - PCV) 1956 Zoster Vaccine (1 of 2) 1987 Covid-19 Vaccine (2024- season) 2025 06/13/2022, 10/04/2021, 10/04/2021, Additional history exists Influenza Vaccine (#1) 2025 , 02/26/2023, 06/06/2022, Additional history exists Well Visit 65+ 02/18/2025 02/19/2024, 08/06/2022, 11/20/2021, Additional history exists Depression Screening 06/04/2025 06/04/2024, 02/19/2024, 07/16/2023, Additional history exists Fall Risk Assessment 02/28/2026 02/28/2025, 06/04/2024, 03/26/2024, Additional history exists Goals Goal Patient Goal Type Associated Problems Recent Progress Patient-Stated? Author <enter goal here> General Improving( 9:39 AM [employer]SEHOLD [employer]) Yes Jeannie Ricks RN Note: Standing Walking Bending Rolling over in bed Medical Devices Implanted Type Area Engraving Patternmaker Device Identifier Shelf Expiration Date Model / Serial / Lot [employer] C.R.M. Ingevity 45cm Mri Passive Fixation Preformed [employer] Curve Lead 7735 - [id number] - [id number] Implanted:Qty: 1 on 02/26/2025 by Rochelle Thao MD at [facility] [employer] C[employer]M. 07/09/2025 [id number] / [id number] / [employer] Lead 7841 Endocardial Pacing Mr Is-1 Bipolar Connection 7841 - [id number] - [id number] Implanted:Qty: 1 on 02/26/2025 by Rochelle Thao MD at [facility] [employer] 12/10/2026 [id number] / [id number] / [employer] Tyrx Absorbable Antibacterial Envelope Med 2.7x2.5in [id number] - [id number] Implanted:Qty: 1 on 02/26/2025 by Rochelle Thao MD at [facility] [employer] 11/07/2025 [id number] / / [id number] [employer] Pacemaker [address] Mri Compatible 0.75x4.45x5.88cm L131 - [id number] - [id number] Implanted:Qty: 1 on 02/26/2025 by Rochelle Thao MD at [facility] Left: Chest [employer] 08/05/2026 [id number] / [id number] / Procedures Procedure Name Priority Date/Time Associated Diagnosis Comments DEVICE CHECK - REMOTE Routine 03/16/2025 11:03 AM CDT AV block, 3rd degree (HCC) Cardiac pacemaker SCAN - RADIOLOGY/IMAGING 03/01/2025 OSMOLALITY, BLOOD Add-On 02/28/2025 5:4 8 AM CDT EGFR Routine 02/28/2025 5:48 AM CDT BASIC METABOLIC PANEL Routine 02/28/2025 5:48 AM CDT CBC WITHOUT DIFFERENTIAL Routine 02/28/2025 5:48 AM CDT ECG 12-LEAD Routine 02/28/2025 3:13 AM CDT ECG 12-LEAD Routine 02/27/2025 10:13 AM CDT EGFR Routine 02/27/2025 3:46 AM CDT BASIC METABOLIC PANEL Routine 02/27/2025 3:46 AM CDT CBC WITHOUT DIFFERENTIAL Routine 02/27/2025 3:46 AM CDT XR CHEST 1 VIEW IP Routine 02/26/2025 4:22 PM CDT ICD LEAD DUAL 2 LEADS PPM OR ICD Routine 02/26/2025 3:30 PM CDT Acute stroke due to ischemia (HCC) EGFR Routine 02/26/2025 4:17 AM CDT BASIC METABOLIC PANEL Routine 02/26/2025 4:17 AM CDT CBC WITHOUT DIFFERENTIAL Routine 02/26/2025 4:17 AM CDT EGFR Routine 02/25/2025 4:51 AM CDT BASIC METABOLIC PANEL Routine 02/25/2025 4:51 AM CDT CBC WITHOUT DIFFERENTIAL Routine 02/25/2025 4:51 AM CDT URINE CULTURE STAT 02/24/2025 3:22 PM CDT EGFR Routine 02/24/2025 3:45 AM CDT BASIC METABOLIC PANEL Routine 02/24/2025 3:45 AM CDT CBC WITHOUT DIFFERENTIAL Routine 02/24/2025 3:45 AM CDT URINALYSIS, MICROSCOPIC ONLY Routine 02/23/2025 1:02 PM CDT DIFFERENTIAL AUTO STAT 02/23/2025 1:0 2 PM CDT URINALYSIS AND REFLEX TO MICROSCOPIC Routine 02/23/2025 1:02 PM CDT CBC WITH AUTO DIFFERENTIAL STAT 02/23/2025 1:02 PM CDT EGFR Routine 02/23/2025 3:55 AM CDT BASIC METABOLIC PANEL Routine 02/23/2025 3:55 AM CDT CBC WITHOUT DIFFERENTIAL Routine 02/23/2025 3:55 AM CDT POCT GLUCOSE DEVICE Routine 02/23/2025 2 :04 AM CDT TRANSTHORACIC ECHO (TTE) COMPLETE W DOPPLER/CF WO CONTRAST STAT 02/22/2025 1:[address] HEAD WO CONTRAST IP Routine 02/22/2025 1 0:30 AM CDT EGFR Routine 02/22/2025 3:34 AM CDT BASIC METABOLIC PANEL Routine 02/22/2025 3:34 AM CDT CBC WITHOUT DIFFERENTIAL Routine 02/22/2025 3:34 AM CDT ND CRITICAL CARE ILL/INJURED PATIENT INIT 30-74 MIN Routine 02/21/2025 7:34 AM CDT POTASSIUM LEVEL Timed 02/21/2025 6:36 AM CDT TROPONIN T HIGH-SENSITIVITY 6-HOUR Timed 02/21/2025 6:36 AM CDT EGFR Routine 02/21/2025 4:29 AM CDT BASIC METABOLIC PANEL Routine 02/21/2025 4:29 AM CDT CBC WITHOUT DIFFERENTIAL Routine 02/21/2025 4:29 AM CDT TROPONIN T HIGH-SENSITIVITY 4-HR Timed 02/21/2025 4:29 AM CDT FOLATE Add-On 02/21/2025 4:12 AM CDT VITAMIN B12 Add-On 02/21/2025 4:12 AM CDT POTASSIUM LEVEL Timed 02/21/2025 3:11 AM CDT TROPONIN T HIGH-SENSITIVITY 2-HOUR Timed 02/21/2025 1:58 AM CDT XR CHEST 1 VIEW ED 02/21/2025 12:15 AM CDT EGFR STAT 02/20/2025 11:51 PM CDT DIFFERENTIAL AUTO STAT 02/20/2025 11: 51 PM CDT PRO B-TYPE NATRIURETIC PEPTIDE STAT 02/20/2025 11:51 PM CDT TROPONIN T HIGH-SENSITIVITY SERIES (BASELINE, 2HR, 4HR, 6HR) STAT 02/20/2025 11:51 PM CDT THYROID FUNCTION CASCADE STAT 02/20/2025 11:51 PM CDT COMPREHENSIVE METABOLIC PANEL STAT 02/20/2025 11:51 PM CDT CBC WITH AUTO DIFFERENTIAL STAT 02/20/2025 11:51 PM CDT ECG 12-LEAD STAT 02/20/2025 11:50 PM CDT from Last 3 Months Results * DEVICE CHECK - REMOTE (03/16/2025 11:03 AM CDT) Anatomical Region Laterality Modality Other Narrative 03/16/2025 12:21 PM CDT Images from the original result were not included. 03/16/2025 [email or web address] AF Alert The complete report in its entirety is attached to this Result Text in Director Of Patient Safety New onset AF- March 11: March 3rd: Ap: 0% Puppet Engineer: 100% AF [place]: 100% Device Nurse Review and Recommendations below Recent CVA; Afib appears to be new; not on OAC Reviewed By Genie Menjivar RN BSN at 11:36 AM Review and Recommendations below (please forward an in-basket message to your MA if check requires attention) Message sent to start patient on Eliquis ATTESTATION I have reviewed the device interrogation report associated with this encounter in detail. I agree with the documentation recorded/scanned into the electronic medical record. Recommendations: Continue current device follow-up. Rochelle Thao MD us Rochelle Thao MD CV CARDIAC SERVICES ND OCEDURES Final Result * SCAN - RADIOLOGY/IMAGING (03/01/2025) Anatomical Region Laterality Modality Other us Provider Scanning Edited Result - Final * eGFR (02/28/2025 5:48 AM CDT) eGFR 86 >=60 mL/min/1. 73 m2 Comment: Interpretive Data Reference Interval Normal >/= 90 mL/min/1.73m2 Mildly decreased* 60 - 89 mL/min/1.73m2 Mildly to moderately decreased 45 - 59 mL/min/1.73m2 Moderately to severely decreased 30 - 44 mL/min/1.73m2 Severely decreased 15 - 29 mL/min/1.73m2 Kidney Failure < 15 mL/min/1.73m2 *Relative to young adult level Estimated glomerular filtration rate is determined by the 2020 CKD-EPI equation recommended by the National Kidney Foundation (A Unifying Approach to GFR Estimation: Recommendations of the NKF-ASK Task Force on Reassessing the Inclusion of Race in Diagnosing Kidney Disease, JASN 2020). The CKD-EPI equation should not be used for patients with unstable renal function and has not been validated in children and those over 70. Current interpretive data was last reviewed 2021. Blood 02/28/2025 5:48 AM CDT 02/28/2025 6:01 AM CDT us Jesenia Harris MD LAB BLOOD ORDERABLES Final Re sult [facility] [address] Department [place] [address] * (ABNORMAL) CBC without differential (02/28/2025 5:48 AM CDT) WBC 10.64(H) 3.80 - 9.90 K/cumm Hgb 13.7 11.9 - 15.5 g/dL [facility] Hct 40.9 35.6 - 45.5 % [facility] Plt 329 150 - 400 K/cumm [facility] MPV 11.0 9.1 - 12.3 fL [facility] RBC 4.29 3.90 - 5.20 M/cumm [facility] MCV 95.3 81.3 - 96.4 fL [facility] MCH 31.9 27.1 - 33.3 pg [facility] MCHC 33.5 32.3 - 35.7 g/dL [facility] RDW CV 12.7 11.1 - 14.9 % [facility] RDW SD 44.6 35.7 - 48.1 fL [facility] NRBC abs 0.00 0.00 - 0.01 K/cumm [facility] Blood 02/28/2025 5:48 AM CDT 02/28/2025 6:01 AM CDT Jesenia Harris MD LAB BLOOD ORDERABLES Final Re sult [facility] [address] Department [place] [address] * (ABNORMAL) Osmolality, blood (02/28/2025 5:48 AM CDT) Osmo 262(L) 275 - 300 mOsm/kg Comment:Testing performed by : [facility], [address] [facility], [place]., [address] Blood 02/28/2025 5:48 AM CDT 02/28/2025 11:40 AM CDT Jesenia Harris MD LAB BLOOD ORDERABLES Final Re sult Performing Organization Address [facility] Co de Phone Number [facility] RODRIGUE[facility] [address] Department [place] [address] * (ABNORMAL) Basic metabolic panel (02/28/2025 5:48 AM CDT) Sodium 126(L) 135 - 145 mmol/L Potassium, pl 4.4 3.3 - 4.9 mmol/L [facility] Chloride 92(L) 97 - 110 mmol/L [facility] CO2 21(L) 22 - 32 mmol/L [facility] Anion gap 13 2 - 15 mmol/L [facility] BUN 13 6 - 25 mg/dL [facility] Creatinine 0.63 0.60 - 1.10 mg/dL [facility] Glucose 101 70 - 199 mg/dL [facility] Comment: Interpretive Data Fasting glucose >/= 126 mg/dl is diagnostic for diabetes. Fasting is defined as no caloric intake for at least 8 hours. Fasting glucose between 100 mg/dl to 125 mg/dl is diagnostic of prediabetes. In a patient with classic symptoms of hyperglycemia or hyperglycemic crisis, a random glucose >/= 200 mg/dl is diagnostic for diabetes. In the absence of unequivocal hyperglycemia, results should be confirmed by repeat testing. The classification and Diagnosis of Diabetes Diabetes Care 2021; 46: S19-S40. Current interpretive data was last revised 2022. Calcium 9.5 8.5 - 10.3 mg/dL [facility] Blood 02/28/2025 5:48 AM CDT 02/28/2025 6:01 AM CDT Jesenia Harris MD LAB BLOOD ORDERABLES Final Re sult Performing Organization Address City/[facility] Co de Phone Number SHAHANA [address] Department [place] [address] * ECG 12 lead (02/28/2025 3:13 AM CDT) 02/28/2025 3:13 AM CDT Narrative [facility] - 02/28/2025 6:23 PM CDT Vent Rate: 110 bpm RR Interval: 543 msec ND Interval: 149 msec QRS Duration: 147 msec QT Interval: 372 msec QTC Interval: 437 msec P-R-T Rainbow: 81 - -31 - 13 degrees IMPRESSION: VENTRICULAR PACED RHYTHM Electronically Signed By: Navjot Lang MD, [facility] us Padmini Valerio NP ECG ORDERABLES Final R esult Performing Organization Address [facility] de Phone Number [facility] * ECG 12 lead (02/27/2025 10:13 AM CDT) 02/27/2025 10:1 3 AM CDT Narrative [facility] - 02/28/2025 7:27 PM CDT Vent Rate: 75 bpm RR Interval: 795 msec ND Interval: 173 msec QRS Duration: 155 msec QT Interval: 426 msec QTC Interval: 455 msec P-R-T Rainbow: 85 - -14 - -17 degrees IMPRESSION: ATRIAL SENSED, VENTRICULAR PACED RHYTHM Electronically Signed By: Navjot Lang MD, [facility] Rochelle Thao MD ECG ORDERABLES Final Result Performing Organization Address [facility] Co de Phone Number [facility] * eGFR (02/27/2025 3:46 AM CDT) eGFR 85 >=60 mL/min/1. 73 m2 Comment: Interpretive Data Reference Interval Normal >/= 90 mL/min/1.73m2 Mildly decreased* 60 - 89 mL/min/1.73m2 Mildly to moderately decreased 45 - 59 mL/min/1.73m2 Moderately to severely decreased 30 - 44 mL/min/1.73m2 Severely decreased 15 - 29 mL/min/1.73m2 Kidney Failure < 15 mL/min/1.73m2 *Relative to young adult level Estimated glomerular filtration rate is determined by the 2020 CKD-EPI equation recommended by the National Kidney Foundation (A Unifying Approach to GFR Estimation: Recommendations of the NKF-ASK Task Force on Reassessing the Inclusion of Race in Diagnosing Kidney Disease, JASN 2020). The CKD-EPI equation should not be used for patients with unstable renal function and has not been validated in children and those over 70. Current interpretive data was last reviewed 2021. Blood 02/27/2025 3:46 AM CDT 02/27/2025 3:53 AM CDT us Jesenia Harris MD LAB BLOOD ORDERABLES Final Re sult [facility] [address] Department [place] [address] * (ABNORMAL) CBC without differential (02/27/2025 3:46 AM CDT) WBC 10.64(H) 3.80 - 9.90 K/cumm Hgb 13.0 11.9 - 15.5 g/dL [facility] Hct 39.9 35.6 - 45.5 % [facility] Plt 313 150 - 400 K/cumm [facility] MPV 11.0 9.1 - 12.3 fL [facility] RBC 4.09 3.90 - 5.20 M/cumm [facility] MCV 97.6(H) 81.3 - 96.4 fL [facility] MCH 31.8 27.1 - 33.3 pg [facility] MCHC 32.6 32.3 - 35.7 g/dL [facility] RDW CV 13.1 11.1 - 14.9 % [facility] RDW SD 46.7 35.7 - 48.1 fL [facility] NRBC abs 0.00 0.00 - 0.01 K/cumm [facility] Blood 02/27/2025 3:46 AM CDT 02/27/2025 3:53 AM CDT us Jesenia Harris MD LAB BLOOD ORDERABLES Final Re sult [facility] [address] Department [place] [address] * (ABNORMAL) Basic metabolic panel (02/27/2025 3:46 AM CDT) Sodium 129(L) 135 - 145 mmol/L Potassium, pl 4.6 3.3 - 4.9 mmol/L [facility] Chloride 97 97 - 110 mmol/L [facility] CO2 19(L) 22 - 32 mmol/L [facility] Anion gap 13 2 - 15 mmol/L [facility] BUN 17 6 - 25 mg/dL [facility] Creatinine 0.65 0.60 - 1.10 mg/dL [facility] Glucose 90 70 - 199 mg/dL [facility] Comment: Interpretive Data Fasting glucose >/= 126 mg/dl is diagnostic for diabetes. Fasting is defined as no caloric intake for at least 8 hours. Fasting glucose between 100 mg/dl to 125 mg/dl is diagnostic of prediabetes. In a patient with classic symptoms of hyperglycemia or hyperglycemic crisis, a random glucose >/= 200 mg/dl is diagnostic for diabetes. In the absence of unequivocal hyperglycemia, results should be confirmed by repeat testing. The classification and Diagnosis of Diabetes Diabetes Care 2021; 46: S19-S40. Current interpretive data was last revised 2022. Calcium 9.6 8.5 - 10.3 mg/dL [facility] Blood 02/27/2025 3:46 AM CDT 02/27/2025 3:53 AM CDT Jesenia Harris MD LAB BLOOD ORDERABLES Final Re sult [facility] [id number] [facility] Department of Laboratories [place], [place] [id number] * XR Chest 1 Vw Portable (02/26/2025 4:22 PM CDT) Anatomical Region Laterality Modality Body, Chest N/A Computed Radiogr aphy 02/26/2025 6:43 PM CDT Impressions 02/26/2025 6:43 PM CDT Left pacemaker in place. No pneumothorax or acute pulmonary disease. Electronically signed by: Rossy Mathur M.D. Narrative 02/26/2025 6:43 PM CDT Examination: XR CHEST 1 VIEW Date: 02/26/2025 4:05 PM History: dual PPM Comparison: 02/20/2025. Findings: The heart is borderline enlarged. Left-sided pacemaker with right atrial and ventricular leads is present. No acute infiltrate or effusion is seen. No pneumothorax is seen. Left shoulder arthroplasty is present. Procedure Note Rossy Mathur MD - 02/26/2025 Examination: XR CHEST 1 VIEW Date: 02/26/2025 4:05 PM History: dual PPM Comparison: 02/20/2025. Findings: The heart is borderline enlarged. Left-sided pacemaker with right atrial and ventricular leads is present. No acute infiltrate or effusion is seen. No pneumothorax is seen. Left shoulder arthroplasty is present. IMPRESSION: Left pacemaker in place. No pneumothorax or acute pulmonary disease. Electronically signed by: Rossy Mathur M.D. Rochelle Thao MD IMG XR PROCEDURES Jane l Result * ICD LEAD DUAL 2 LEADS PPM OR ICD (02/26/2025 3:30 PM CDT) Anatomical Region Laterality Modality X-Ray Angiograph y 02/26/2025 Narrative 03/03/2025 11:12 AM CDT [employer] Job ID: [id number] [employer] Document ID: [id number] Dictated date/time: [id number] PACEMAKER IMPLANTATION REPORT An 89-year-old lady who presented with incomplete heart block and subsequently has had intermittent high-grade AV block, regaining sinus rhythm. In the meantime, referred for dual-chamber pacemaker. PHYSICIAN Dr. Thao. PROCEDURES 1. Implantation of a dual-chamber pacemaker system, [employer]. 2. Venogram. PROCEDURE IN DETAIL She was brought to the clinical laboratory technician. Left neck subclavicular was prepped in the usual sterile fashion. 1% lidocaine with epi was used. Venogram obtained. Pacemaker pocket was created. Access was obtained axillary subclavian vein. Two J wires were advanced over which two 6 SafeSheaths were placed. Both the sheaths were flushed, confirming venous return. Through the 1st sheath, [employer] RV pacing lead [id number], placed in the mid ventricular septum and screwed in place. Through the 2nd sheath, [employer] atrial pacing lead [id number] was placed in the atrial appendage with passive fixation. Thresholds in the atrium: 2.3 mV, 0.7 V, 0.4 milliseconds, 572 ohms, RV 10.6 mV 0.4 V, 0.4 milliseconds, 958 ohms. The leads were secured to subcutaneous tissue using 0 Ethibond, connected to a generator from [employer] [id number], noted to be pacing and sensing appropriately. The pocket irrigated with antibiotic solution. Generator was placed in the pocket with 0 Ethibond header stitch. Deep tissues 2-0 Monocryl, superficial 4-0 Monocryl, and topical. Dermabond applied. Chest x-ray, ECG will be obtained. Pain medications were ordered. CONCLUSION 1. Successful implantation of a dual-chamber pacemaker system, [employer]. 2. Venogram. Job ID/Internal Job ID: [id number] us Elina Trivedi NP CV ELECTROPHYSIOLOGY PROCS F inal Result * eGFR (02/26/2025 4:17 AM CDT) eGFR 64 >=60 mL/min/1. 73 m2 Comment: Interpretive Data Reference Interval Normal >/= 90 mL/min/1.73m2 Mildly decreased* 60 - 89 mL/min/1.73m2 Mildly to moderately decreased 45 - 59 mL/min/1.73m2 Moderately to severely decreased 30 - 44 mL/min/1.73m2 Severely decreased 15 - 29 mL/min/1.73m2 Kidney Failure < 15 mL/min/1.73m2 *Relative to young adult level Estimated glomerular filtration rate is determined by the 2020 CKD-EPI equation recommended by the National Kidney Foundation (A Unifying Approach to GFR Estimation: Recommendations of the NKF-ASK Task Force on Reassessing the Inclusion of Race in Diagnosing Kidney Disease, JASN 2020). The CKD-EPI equation should not be used for patients with unstable renal function and has not been validated in children and those over 70. Current interpretive data was last reviewed 2021. Blood 02/26/2025 4:17 AM CDT 02/26/2025 4:35 AM CDT us Jesenia Harris MD LAB BLOOD ORDERABLES Final Re sult [facility] [address] Department [place] [address] * (ABNORMAL) CBC without differential (02/26/2025 4:17 AM CDT) WBC 9.04 3.80 - 9.90 K/cumm Hgb 11.6(L) 11.9 - 15.5 g/dL [facility] Hct 35.9 35.6 - 45.5 % [facility] Plt 250 150 - 400 K/cumm [facility] MPV 11.8 9.1 - 12.3 fL [facility] RBC 3.63(L) 3.90 - 5.20 M/cumm [facility] MCV 98.9(H) 81.3 - 96.4 fL [facility] MCH 32.0 27.1 - 33.3 pg [facility] MCHC 32.3 32.3 - 35.7 g/dL [facility] RDW CV 13.4 11.1 - 14.9 % [facility] RDW SD 48.8(H) 35.7 - 48.1 fL [facility] NRBC abs 0.00 0.00 - 0.01 K/cumm [facility] Blood 02/26/2025 4:17 AM CDT 02/26/2025 4:35 AM CDT Jesenia Harris MD LAB BLOOD ORDERABLES Final Re sult Performing Organization Address City/[facility] Co de Phone Number [facility]NA RODRIGUEZ [address] Department [place] [address] * (ABNORMAL) Basic metabolic panel (02/26/2025 4:17 AM CDT) Sodium 130(L) 135 - 145 mmol/L Potassium, pl 4.7 3.3 - 4.9 mmol/L [facility] Chloride 100 97 - 110 mmol/L [facility] CO2 17(L) 22 - 32 mmol/L [facility] Anion gap 13 2 - 15 mmol/L [facility] BUN 26(H) 6 - 25 mg/dL [facility] Creatinine 0.88 0.60 - 1.10 mg/dL [facility] Glucose 87 70 - 199 mg/dL [facility] Comment: Interpretive Data Fasting glucose >/= 126 mg/dl is diagnostic for diabetes. Fasting is defined as no caloric intake for at least 8 hours. Fasting glucose between 100 mg/dl to 125 mg/dl is diagnostic of prediabetes. In a patient with classic symptoms of hyperglycemia or hyperglycemic crisis, a random glucose >/= 200 mg/dl is diagnostic for diabetes. In the absence of unequivocal hyperglycemia, results should be confirmed by repeat testing. The classification and Diagnosis of Diabetes Diabetes Care 2021; 46: S19-S40. Current interpretive data was last revised 2022. Calcium 9.0 8.5 - 10.3 mg/dL [facility] Blood 02/26/2025 4:17 AM CDT 02/26/2025 4:35 AM CDT Jesenia Harris MD LAB BLOOD ORDERABLES Final Re sult Performing Organization Address [facility] Co de Phone Number SHAHANA [address] Department [place] [address] * (ABNORMAL) eGFR (02/25/2025 4:51 AM CDT) Pathologist [facility] eGFR 47(L) >=60 mL/min/1. 73 m2 Comment: Interpretive Data Reference Interval Normal >/= 90 mL/min/1.73m2 Mildly decreased* 60 - 89 mL/min/1.73m2 Mildly to moderately decreased 45 - 59 mL/min/1.73m2 Moderately to severely decreased 30 - 44 mL/min/1.73m2 Severely decreased 15 - 29 mL/min/1.73m2 Kidney Failure < 15 mL/min/1.73m2 *Relative to young adult level Estimated glomerular filtration rate is determined by the 2020 CKD-EPI equation recommended by the National Kidney Foundation (A Unifying Approach to GFR Estimation: Recommendations of the NKF-ASK Task Force on Reassessing the Inclusion of Race in Diagnosing Kidney Disease, JASN 2020). The CKD-EPI equation should not be used for patients with unstable renal function and has not been validated in children and those over 70. Current interpretive data was last reviewed 2021. Blood 02/25/2025 4:51 AM CDT 02/25/2025 4:57 AM CDT us Jesenia Harris MD LAB BLOOD ORDERABLES Final Re sult [facility] [address] Department [place] [address] * (ABNORMAL) CBC without differential (02/25/2025 4:51 AM CDT) Pathologist [facility] WBC 10.68(H) 3.80 - 9.90 K/cumm Hgb 11.5(L) 11.9 - 15.5 g/dL [facility] Hct 35.8 35.6 - 45.5 % [facility] Plt 254 150 - 400 K/cumm [facility] MPV 11.4 9.1 - 12.3 fL [facility] RBC 3.59(L) 3.90 - 5.20 M/cumm [facility] MCV 99.7(H) 81.3 - 96.4 fL [facility] MCH 32.0 27.1 - 33.3 pg [facility] MCHC 32.1(L) 32.3 - 35.7 g/dL [facility] RDW CV 13.9 11.1 - 14.9 % [facility] RDW SD 50.8(H) 35.7 - 48.1 fL [facility] NRBC abs 0.00 0.00 - 0.01 K/cumm [facility] Blood 02/25/2025 4:51 AM CDT 02/25/2025 4:57 AM CDT us Jesenia Harris MD LAB BLOOD ORDERABLES [place] [address] [address] Department [place] [address] * (ABNORMAL) Basic metabolic panel (02/25/2025 4:51 AM CDT) Sodium 133(L) 135 - 145 mmol/L Potassium, pl 4.6 3.3 - 4.9 mmol/L [facility] Chloride 102 97 - 110 mmol/L [facility] CO2 18(L) 22 - 32 mmol/L [facility] Anion gap 13 2 - 15 mmol/L [facility] BUN 33(H) 6 - 25 mg/dL [facility] Creatinine 1.14(H) 0.60 - 1.10 mg/dL [facility] Glucose 107 70 - 199 mg/dL [facility] Comment: Interpretive Data Fasting glucose >/= 126 mg/dl is diagnostic for diabetes. Fasting is defined as no caloric intake for at least 8 hours. Fasting glucose between 100 mg/dl to 125 mg/dl is diagnostic of prediabetes. In a patient with classic symptoms of hyperglycemia or hyperglycemic crisis, a random glucose >/= 200 mg/dl is diagnostic for diabetes. In the absence of unequivocal hyperglycemia, results should be confirmed by repeat testing. The classification and Diagnosis of Diabetes Diabetes Care 2021; 46: S19-S40. Current interpretive data was last revised 2022. Calcium 8.9 8.5 - 10.3 mg/dL [facility] Blood 02/25/2025 4:51 AM CDT 02/25/2025 4:57 AM CDT Jesenia Harris MD LAB BLOOD ORDERABLES Final Re sult Performing Organization Address [facility] Co de Phone Number SHAHANA RODRIGUEZ [address] Department [place] [address] * (ABNORMAL) Urine culture Urine, bladder (02/24/2025 3:22 PM CDT) Report Final Report: Greater than or equal to 100,000 colonies/mL of Pseudomonas aeruginosa (.) Comment:Testing performed by : [facility], [address] [place]., [address] Organism [facility]SEUDOMONAS [facility]IN[facility]A [facility] Urine, bladder 02/24/2025 3: 22 PM CDT 02/24/2025 7:03 PM CDT Narrative SHAHANA RODRIGUEZ - 02/27/2025 11:12 AM CDT Indications for Culture:->Recent positive UA Testing performed by [facility] ([phone]) Organism Antibiotic Method Susceptibility Pseudomonas aeruginosa Aztreonam INTERPRETATION Susceptible Pseudomonas aeruginosa Ceftazidime INTERPRETATION Susceptible Pseudomonas aeruginosa Ciprofloxacin INTERPRETATION Susceptible Pseudomonas aeruginosa Cefepime INTERPRETATION Susceptible Pseudomonas aeruginosa Amikacin INTERPRETATION Susceptible Pseudomonas aeruginosa Imipenem INTERPRETATION Susceptible Pseudomonas aeruginosa Meropenem INTERPRETATION Susceptible Pseudomonas aeruginosa Piperacillin/Tazobactam INTERPR ETATION Susceptible Pseudomonas aeruginosa Tobramycin INTERPRETATION Susceptible Jesenia Harris MD LAB MICROBIOLOGY - GENERAL OR DERABLES Final Result Performing Organization Address [facility]/ZIP Co de Phone Number SHAHANA RODRIGUEZ [address] [address] Department [place] [address] * (ABNORMAL) eGFR (02/24/2025 3:45 AM CDT) eGFR 49(L) >=60 mL/min/1. 73 m2 Comment: Interpretive Data Reference Interval Normal >/= 90 mL/min/1.73m2 Mildly decreased* 60 - 89 mL/min/1.73m2 Mildly to moderately decreased 45 - 59 mL/min/1.73m2 Moderately to severely decreased 30 - 44 mL/min/1.73m2 Severely decreased 15 - 29 mL/min/1.73m2 Kidney Failure < 15 mL/min/1.73m2 *Relative to young adult level Estimated glomerular filtration rate is determined by the 2020 CKD-EPI equation recommended by the National Kidney Foundation (A Unifying Approach to GFR Estimation: Recommendations of the NKF-ASK Task Force on Reassessing the Inclusion of Race in Diagnosing Kidney Disease, JASN 2020). The CKD-EPI equation should not be used for patients with unstable renal function and has not been validated in children and those over 70. Current interpretive data was last reviewed 2021. Blood 02/24/2025 3:45 AM CDT 02/24/2025 3:49 AM CDT us Jesenia Harris MD LAB BLOOD ORDERABLES Final Re sult [facility] [address] [address] Department [place] [address] * (ABNORMAL) CBC without differential (02/24/2025 3:45 AM CDT) WBC 12.55(H) 3.80 - 9.90 K/cumm Hgb 12.9 11.9 - 15.5 g/dL [facility] Hct 39.4 35.6 - 45.5 % [facility] Plt 271 150 - 400 K/cumm [facility] MPV 11.5 9.1 - 12.3 fL [facility] RBC 3.98 3.90 - 5.20 M/cumm [facility] MCV 99.0(H) 81.3 - 96.4 fL [facility] MCH 32.4 27.1 - 33.3 pg [facility] MCHC 32.7 32.3 - 35.7 g/dL [facility] RDW CV 14.2 11.1 - 14.9 % [facility] RDW SD 51.9(H) 35.7 - 48.1 fL [facility] NRBC abs 0.00 0.00 - 0.01 K/cumm [facility] Blood 02/24/2025 3:45 AM CDT 02/24/2025 3:49 AM CDT Jesenia Harris MD LAB BLOOD ORDERABLES Final Re sult Performing Organization Address City/[facility]/ZIP Co de Phone Number SHAHANA RODRIGUEZ [address] [address] Department [place] [address] * (ABNORMAL) Basic metabolic panel (02/24/2025 3:45 AM CDT) Pathologist [facility] Sodium 137 135 - 145 mmol/L Potassium, pl 4.4 3.3 - 4.9 mmol/L [facility] Chloride 105 97 - 110 mmol/L [facility] CO2 18(L) 22 - 32 mmol/L [facility] Anion gap 14 2 - 15 mmol/L [facility] BUN 32(H) 6 - 25 mg/dL [facility] Creatinine 1.10 0.60 - 1.10 mg/dL [facility] Glucose 111 70 - 199 mg/dL [facility] Comment: Interpretive Data Fasting glucose >/= 126 mg/dl is diagnostic for diabetes. Fasting is defined as no caloric intake for at least 8 hours. Fasting glucose between 100 mg/dl to 125 mg/dl is diagnostic of prediabetes. In a patient with classic symptoms of hyperglycemia or hyperglycemic crisis, a random glucose >/= 200 mg/dl is diagnostic for diabetes. In the absence of unequivocal hyperglycemia, results should be confirmed by repeat testing. The classification and Diagnosis of Diabetes Diabetes Care 2021; 46: S19-S40. Current interpretive data was last revised 2022. Calcium 8.8 8.5 - 10.3 mg/dL [facility] Blood 02/24/2025 3:45 AM CDT 02/24/2025 3:49 AM CDT Jesenia Harris MD LAB BLOOD ORDERABLES Final Re sult Performing Organization Address City/[facility]/ZIP Co de Phone Number SHAHANA RODRIGUEZ [address] Department [place] [address] * (ABNORMAL) Differential, auto (02/23/2025 1:02 PM CDT) Neutrophil abs 11.77(H) 1.50 - 6.50 K/cumm Imm gran abs 0.08 0.00 - 0.10 K/cumm [facility] Lymphocyte abs 1.37 0.80 - 3.30 K/cumm [facility] Monocyte abs 2.35(H) 0.20 - 0.80 K/cumm [facility] Eosinophil abs 0.15 0.00 - 0.50 K/cumm [facility] Basophil abs 0.08 0.00 - 0.10 K/cumm [facility] Neutrophil pct 74.5 % [facility] Comment: Interpretive Data Percent cell count reference ranges are not reported, since discordance with absolute values may lead to misinterpretation of CBC data. Current Interpretive Data was last revised on 2017. Imm gran pct 0.5 % [facility] Comment: Interpretive Data Percent cell count reference ranges are not reported, since discordance with absolute values may lead to misinterpretation of CBC data. Current Interpretive Data was last revised on 2017. Lymphocyte pct 8.7 % [facility] Comment: Interpretive Data Percent cell count reference ranges are not reported, since discordance with absolute values may lead to misinterpretation of CBC data. Current Interpretive Data was last revised on 2017. Monocyte pct 14.9 % [facility] Comment: Interpretive Data Percent cell count reference ranges are not reported, since discordance with absolute values may lead to misinterpretation of CBC data. Current Interpretive Data was last revised on 2017. Eosinophil pct 0.9 % [facility] Comment: Interpretive Data Percent cell count reference ranges are not reported, since discordance with absolute values may lead to misinterpretation of CBC data. Current Interpretive Data was last revised on 2017. Basophil pct 0.5 % [facility] Comment: Interpretive Data Percent cell count reference ranges are not reported, since discordance with absolute values may lead to misinterpretation of CBC data. Current Interpretive Data was last revised on 2017. Blood 02/23/2025 1:02 PM CDT 02/23/2025 1:12 PM CDT us Hilario Humphrey MD LAB BLOOD ORDERABLES Final Res ult SHAHANA RODRIGUEZ [address] Department [place] [address] * (ABNORMAL) Urinalysis reflex to microscopic (02/23/2025 1:02 PM CDT) Color, ur Yellow Yellow Clarity, ur Turbid(A) Clear [facility] Specific gravity, ur 1.017 1.003 - 1.030 [facility] pH, urine 5.0 [facility] Comment: Interpretive Data U rine pH is affected by diet, medications, systemic acid-base disturbances, and renal tubular function. pH may affect urinary stone formation. For example, urine pH below 6.0 may help reduce the tendency for calcium phosphate stones and pH greater than 6.0 may reduce the tendency for uric acid stone formation. Source: [facility] [place] Current Interpretive Data was last revised on 2017 Protein, ur ql Negative Negative [facility] Glucose, ur ql Negative Negative [facility] Ketones, ur Negative Negative [facility] Bilirubin, ur Negative Negative [facility] Blood, ur Negative Negative [facility] Urobilinogen, ur <2.0 <2.0 mg/dL [facility] Nitrite, ur Positive(A) Negative [facility] Leukocyte esterase, ur 4+(A) Negative [facility] UA reflex comment Reflex to microscopic UA will be performed. [facility] Urine 02/23/2025 1:02 PM CDT 02/23/2025 1:10 PM CDT us Hilario Humphrey MD LAB URINE ORDERABLES Final Res ult SHAHANA RODRIGUEZ [address] Department [place] [address] * (ABNORMAL) CBC with auto differential (02/23/2025 1:02 PM CDT) WBC 15.80(H) 3.80 - 9.90 K/cumm Hgb 13.6 11.9 - 15.5 g/dL [facility] Hct 42.1 35.6 - 45.5 % [facility] Plt 308 150 - 400 K/cumm [facility] MPV 11.1 9.1 - 12.3 fL [facility] RBC 4.22 3.90 - 5.20 M/cumm [facility] MCV 99.8(H) 81.3 - 96.4 fL [facility] MCH 32.2 27.1 - 33.3 pg [facility] MCHC 32.3 32.3 - 35.7 g/dL [facility] RDW CV 14.4 11.1 - 14.9 % [facility] RDW SD 52.4(H) 35.7 - 48.1 fL [facility] NRBC abs 0.00 0.00 - 0.01 K/cumm [facility] Blood 02/23/2025 1:02 PM CDT 02/23/2025 1:12 PM CDT Hilario Humphrey MD LAB BLOOD ORDERABLES Final Res ult Performing Organization Address [facility] Co de Phone Number SHAHANA RODRIGUEZ [phone] [place] [address] * (ABNORMAL) Urinalysis, microscopic only (02/23/2025 1:02 PM CDT) WBC, ur 11-20(A) 0 - 5 /HPF RBC, ur 3-5(A) 0 - 2 /HPF [facility] Epithelial cells, squamous, ur 1-5 0 - 5 /HPF [facility] Bacteria, ur 3+(A) [facility], ur 1-5 0 - 10 /LPF [facility] Urine 02/23/2025 1:02 PM CDT 02/23/2025 1:10 PM CDT Hilario Humphrey MD LAB URINE ORDERABLES Final Res ult Performing Organization Address City/[facility]/ZIP Co de Phone Number SHAHANA JENNIFER [phone] [facility] [place] [address] * (ABNORMAL) eGFR (02/23/2025 3:55 AM CDT) eGFR 50(L) >=60 mL/min/1. 73 m2 Comment: Interpretive Data Reference Interval Normal >/= 90 mL/min/1.73m2 Mildly decreased* 60 - 89 mL/min/1.73m2 Mildly to moderately decreased 45 - 59 mL/min/1.73m2 Moderately to severely decreased 30 - 44 mL/min/1.73m2 Severely decreased 15 - 29 mL/min/1.73m2 Kidney Failure < 15 mL/min/1.73m2 *Relative to young adult level Estimated glomerular filtration rate is determined by the 2020 CKD-EPI equation recommended by the National Kidney [employer] (A Unifying Approach to GFR Estimation: Recommendations of the NKF-ASK Task Force on Reassessing the Inclusion of Race in Diagnosing Kidney Disease, JASN 2020). The CKD-EPI equation should not be used for patients with unstable renal function and has not been validated in children and those over 70. Current interpretive data was last reviewed 2021. Blood 02/23/2025 3:55 AM CDT 02/23/2025 3:57 AM CDT us Jesenia Harris MD LAB BLOOD ORDERABLES Final Re sult [facility] [address] Department [place] [address] * (ABNORMAL) CBC without differential (02/23/2025 3:55 AM CDT) WBC 13.26(H) 3.80 - 9.90 K/cumm Hgb 13.5 11.9 - 15.5 g/dL [facility] Hct 41.0 35.6 - 45.5 % [facility] Plt 326 150 - 400 K/cumm [facility] MPV 11.0 9.1 - 12.3 fL [facility] RBC 4.13 3.90 - 5.20 M/cumm [facility] MCV 99.3(H) 81.3 - 96.4 fL [facility] MCH 32.7 27.1 - 33.3 pg [facility] MCHC 32.9 32.3 - 35.7 g/dL [facility] RDW CV 14.2 11.1 - 14.9 % [facility] RDW SD 52.1(H) 35.7 - 48.1 fL [facility] NRBC abs 0.00 0.00 - 0.01 K/cumm [facility] Blood 02/23/2025 3:55 AM CDT 02/23/2025 3:57 AM CDT Jesenia Harris MD LAB BLOOD ORDERABLES Final Re sult SHAHANA [id number] Department [place] [address] * (ABNORMAL) Basic metabolic panel (02/23/2025 3:55 AM CDT) Sodium 138 135 - 145 mmol/L Potassium, pl 4.5 3.3 - 4.9 mmol/L [facility] Chloride 110 97 - 110 mmol/L [facility] CO2 17(L) 22 - 32 mmol/L [facility] Anion gap 11 2 - 15 mmol/L [facility] BUN 31(H) 6 - 25 mg/dL [facility] Creatinine 1.07 0.60 - 1.10 mg/dL [facility] Glucose 112 70 - 199 mg/dL [facility] Comment: Interpretive Data Fasting glucose >/= 126 mg/dl is diagnostic for diabetes. Fasting is defined as no caloric intake for at least 8 hours. Fasting glucose between 100 mg/dl to 125 mg/dl is diagnostic of prediabetes. In a patient with classic symptoms of hyperglycemia or hyperglycemic crisis, a random glucose >/= 200 mg/dl is diagnostic for diabetes. In the absence of unequivocal hyperglycemia, results should be confirmed by repeat testing. The classification and Diagnosis of Diabetes Diabetes Care 202; 46: S19-S40. Current interpretive data was last revised 2022. Calcium 8.8 8.5 - 10.3 mg/dL [facility] Blood 02/23/2025 3:55 AM CDT 02/23/2025 3:57 AM CDT Jesenia Harris MD LAB BLOOD ORDERABLES Final Re sult SHAHANA RODRIGUEZ [address] Department [place] [address] * POCT glucose (02/23/2025 2:04 AM CDT) Glucose, POC 97 70 - 199 mg/dL Blood 02/23/2025 2:04 AM CDT 02/23/2025 2:04 AM CDT Ruddy House DO LAB POCT ORDERABLES - DEV ICE Final Result SHAHANA RODRIGUEZ [address] Department of Laboratories [place] [id number] * TRANSTHORACIC ECHO (TTE) COMPLETE W DOPPLER/CF WO CONTRAST (02/22/2025 1:50 PM CDT) Pathologist [facility] EF Mod BP 71 % CONS SCIMAGE Anatomical Region Laterality Modality Ultrasound 02/22/2025 1:08 PM CDT Narrative 02/22/2025 3:33 PM CDT [place] [id number] Echocardiogram Report Patient Name: DAISHA ROTHMAN L : 1935 Study Date: 02/22/2025 1:08:03 PM Gender: F Tech: Location: [id number] Ref Provider: ELINA TRIVEDI Height(Cm): 170 BSA: 2.03 Weight(Kg): 87 Heart Rate: 45 BP: 117 / 43 Quality: Good Order Provider: ELINA TRIVEDI PROCEDURES: Echocardiographic Report: Transthoracic echocardiogram with complete 2D, M-Mode, and color Doppler examination. INDICATIONS: Cardiac Arrhythmia. MEASUREMENTS: 2D/MM Value Range Doppler Value Range EF Teich 2D 71.0 percent [ 54.0 - 74.0 ] FREYA Vmax 1.72 cm2 EF Mod BP 71 % [ 54 - 74 ] AV Mean PG 14 mmHg LVIDd 2D 4.23 cm [ 3.80 - 5.20 ] AV Peak Abel 2.59 m/s [ 1.00 - 1.70 ] LVIDs 2D 2.27 cm [ 2.20 - 3.50 ] AV VTI 59.96 cm LVPWd 2D 0.77 cm [ 0.60 - 0.90 ] LVOT Diam 2.45 cm IVSd 2D 1.23 cm [ 0.60 - 0.90 ] LVOT Peak Abel 0.87 m/s [ 0.70 - 1.10 ] LA Dimension 2D 3.04 cm [ 2.70 - 3.80 ] LVOT VTI 24.28 cm AoR Diam 2D 3.62 cm [ 2.70 - 3.70 ] SI LVOT 67.6 ml/m2 [ >= 35.0 ] LA Volume Index 55.54 cc/m2 [ 16.00 - 34.00 ] MV E Peak Abel 1.25 m/s [ 0.60 - 1.30 ] MV A Peak Abel 0.72 m/s [ 1.00 - 1.20 ] MV Mean PG 1 mmHg MV Decel Time 198 msec [ 104 - 258 ] PV Peak Abel 1.20 m/s [ 0.40 - 0.80 ] TR Peak Abel 2.48 m/s [ 1.00 - 2.80 ] TR Peak PG 25 mmHg E` 0.10 m/s E/E` 7.68 2D/MM Value Range Doppler Value Range - FINDINGS: Atrial Septum: Normal atrial septum. Left Ventricle: Normal left ventricular size. Normal left ventricular systolic function with no focal wall motion abnormalities. Mild concentric left ventricular hypertrophy. Normal left ventricular diastolic function. Ejection fraction is measured at 71 %. Left Atrium: There is mild enlargement of left atrium. Right Ventricle: Normal right ventricular size. Normal right ventricular systolic function. Right Atrium: The right atrium is normal in size. Aortic Valve: Aortic cusps appear mildly sclerotic. Mild aortic stenosis. Continued echo surveillance recommended. Mean gradient of 14.0 mmHg. Valve area of 1.7 cm2. Mitral Valve: Trivial regurgitation of the mitral valve. Pulmonic Valve: Pulmonic valve not well visualized. Tricuspid Valve: Normal structure of the tricuspid valve. Right Ventricular Systolic Pressure could not be estimated due to inadequate visualization of TR jet. Pericardium: Normal pericardium with no significant pericardial effusion. Aorta: Normal aortic root. IVC: Normal size and normal respiratory collapse consistent with normal right atrial pressure (<5 mmHg). CONCLUSIONS: Normal left ventricular size. Normal left ventricular systolic function with no focal wall motion abnormalities. Mild concentric left ventricular hypertrophy. Normal left ventricular diastolic function. Ejection fraction is measured at 71 %. Normal right ventricular size. Normal right ventricular systolic function. Trivial regurgitation of the mitral valve. Aortic cusps appear mildly sclerotic. Mild aortic stenosis. Continued echo surveillance recommended. Mean gradient of 14.0 mmHg. Valve area of 1.7 cm2. Normal structure of the tricuspid valve. Right Ventricular Systolic Pressure could not be estimated due to inadequate visualization of TR jet. Electronically Signed By: George Orellana MD [facility] 02/22/2025 3:33:05 PM CDT Procedure Note George Orellana MD - 02/22/2025 [place] [address] Echocardiogram Report Patient Name: DAISHA ROHTMAN L : 1935 Study Date: 02/22/2025 1:08:03 PM Gender: F Tech: Location: [id number] Ref Provider: ELINA TRIVEDI Height(Cm): 170 BSA: 2.03 Weight(Kg): 87 Heart Rate: 45 BP: 117 / 43 Quality: Good Order Provider: ELINA TRIVEDI PROCEDURES: Echocardiographic Report: Transthoracic echocardiogram with complete 2D, M-Mode, and color Dopplerexamination. INDICATIONS: Cardiac Arrhythmia. MEASUREMENTS: 2D/MM Value Range DopplerValue Range EF Teich 2D 71.0 percent [ 54.0 - 74.0 ] FREYA Vmax1.72 cm2 EF Mod BP 71 % [ 54 - 74 ] AV Mean PG14 mmHg LVIDd 2D 4.23 cm [ 3.80 - 5.20 ] AV Peak Vel2.59 m/s [ 1.00 - 1.70 ] LVIDs 2D 2.27 cm [ 2.20 - 3.50 ] AV VTI59.96 cm LVPWd 2D 0.77 cm [ 0.60 - 0.90 ] LVOT Diam2.45 cm IVSd 2D 1.23 cm [ 0.60 - 0.90 ] LVOT Peak Vel0.87 m/s [ 0.70 - 1.10 ] LA Dimension 2D 3.04 cm [ 2.70 - 3.80 ] LVOT VTI24.28 cm AoR Diam 2D 3.62 cm [ 2.70 - 3.70 ] SI LVOT67.6 ml/m2 [ >= 35.0 ] LA Volume Index 55.54 cc/m2 [ 16.00 - 34.00 ] MV E Peak Vel1.25 m/s [ 0.60 - 1.30 ] MV A Peak Abel 0.72 m/s [ 1.00 - 1.20 ] MV Mean PG 1 mmHg MV Decel Time 198 msec [ 104 - 258 ] PV Peak Abel 1.20 m/s [ 0.40 - 0.80 ] TR Peak Abel 2.48 m/s [ 1.00 - 2.80 ] TR Peak PG 25 mmHg E` 0.10 m/s E/E` 7.68 2D/MM Value Range DopplerValue Range - FINDINGS: Atrial Septum: Normal atrial septum. Left Ventricle: Normal left ventricular size. Normal left ventricular systolic functionwith no focal wall motion abnormalities. Mild concentric left ventricular hypertrophy.Normal left ventricular diastolic function. Ejection fraction is measured at 71 %. Left Atrium: There is mild enlargement of left atrium. Right Ventricle: Normal right ventricular size. Normal right ventricular systolicfunction. Right Atrium: The right atrium is normal in size. Aortic Valve: Aortic cusps appear mildly sclerotic. Mild aortic stenosis. Continued echosurveillance recommended. Mean gradient of 14.0 mmHg. Valve area of 1.7 cm2. Mitral Valve: Trivial regurgitation of the mitral valve. Pulmonic Valve: Pulmonic valve not well visualized. Tricuspid Valve: Normal structure of the tricuspid valve. Right Ventricular SystolicPressure could not be estimated due to inadequate visualization of TR jet. Pericardium: Normal pericardium with no significant pericardial effusion. Aorta: Normal aortic root. IVC: Normal size and normal respiratory collapse consistent with normal rightatrial pressure (<5 mmHg). CONCLUSIONS: Normal left ventricular size. Normal left ventricular systolic functionwith no focal wall motion abnormalities. Mild concentric left ventricular hypertrophy.Normal left ventricular diastolic function. Ejection fraction is measured at 71 %. Normal right ventricular size. Normal right ventricular systolicfunction. Trivial regurgitation of the mitral valve. Aortic cusps appear mildly sclerotic. Mild aortic stenosis. Continued echosurveillance recommended. Mean gradient of 14.0 mmHg. Valve area of 1.7 cm2. Normal structure of the tricuspid valve. Right Ventricular SystolicPressure could not be estimated due to inadequate visualization of TR jet. Electronically Signed By: George ACOSTA 02/22/2025 3:33:05 PM CDT us Elina Trivedi NP CV ECHO PROCEDURES Final Res ult * CT Head WO Contrast (02/22/2025 10:30 AM CDT) Anatomical Region Laterality Modality Head and Neck N/A Computed Tomogra phy 02/22/2025 11:0 3 AM CDT Impressions 02/22/2025 11:03 AM CDT 1. No acute intracranial hemorrhage, significant mass effect, or midline shift. 2. Interval evolution of the infarct involving the left parieto-occipital temporal region. 3. 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 4. Patchy white matter hypoattenuation, likely reflecting chronic microvascular changes. Electronically signed by: DO Raquel Duran 02/22/2025 11:03 AM CDT EXAMINATION: CT head without contrast HISTORY: 89-year-old with syncope/presyncope. Acute infarcts on 05/11/2024 MRI. TECHNIQUE: Noncontrast CT of the brain was performed with images acquired from skull base to vertex. COMPARISON: CTA head and neck dated 05/09/2024 from [facility], MRI brain dated 05/11/2024 from [facility] FINDINGS: There is no acute intracranial hemorrhage. Hypodensity and volume loss involving the left parieto-occipital temporal region likely represents interval evolution of prior infarct demonstrated on 05/11/2024 MRI. There is associated ex vacuo dilation of the trigone of the left lateral ventricle. Ventricles are otherwise of unchanged size and morphology. No mass effect or midline shift is present. Patchy periventricular, subcortical, and deep white matter hypoattenuation is nonspecific but may reflect chronic microvascular changes. Chronic lacunar infarct in the right thalamus is redemonstrated. Beam hardening artifact limits evaluation of the brainstem in portions of the posterior fossa. Atherosclerosis of the intracranial arteries. The visualized portions of the orbits are without acute abnormality. Bilateral lens replacements. The visualized portions of the mastoids are normal. The visualized portions of the paranasal sinuses are aerated. No acute fractures are identified. Procedure Note Liberty Rivera, DO - 02/22/2025 EXAMINATION: CT head without contrast HISTORY: 89-year-old with syncope/presyncope. Acute infarcts on 05/11/2024 MRI. TECHNIQUE: Noncontrast CT of the brain was performed with images acquired from skull base to vertex. COMPARISON: CTA head and neck dated 05/09/2024 from [facility], MRI brain dated 05/11/2024 from [facility] FINDINGS: There is no acute intracranial hemorrhage. Hypodensity and volume loss involving the left parieto-occipital temporal region likely represents interval evolution of prior infarct demonstrated on 05/11/2024 MRI. There is associated ex vacuo dilation of the trigone of the left lateral ventricle. Ventricles are otherwise of unchanged size and morphology. No mass effect or midline shift is present. Patchy periventricular, subcortical, and deep white matter hypoattenuation is nonspecific but may reflect chronic microvascular changes. Chronic lacunar infarct in the right thalamus is redemonstrated. Beam hardening artifact limits evaluation of the brainstem in portions of the posterior fossa. Atherosclerosis of the intracranial arteries. The visualized portions of the orbits are without acute abnormality. Bilateral lens replacements. The visualized portions of the mastoids are normal. The visualized portions of the paranasal sinuses are aerated. No acute fractures are identified. IMPRESSION: 1. No acute intracranial hemorrhage, significant mass effect, or midline shift. 2. Interval evolution of the infarct involving the left parieto-occipital temporal region. 3. 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 4. Patchy white matter hypoattenuation, likely reflecting chronic microvascular changes. Electronically signed by: Liberty Grullon DO Ruddy House DO IMG CT PROCEDURES Final R esult * eGFR (02/22/2025 3:34 AM CDT) eGFR 70 >=60 mL/min/1. 73 m2 Comment: Interpretive Data Reference Interval Normal >/= 90 mL/min/1.73m2 Mildly decreased* 60 - 89 mL/min/1.73m2 Mildly to moderately decreased 45 - 59 mL/min/1.73m2 Moderately to severely decreased 30 - 44 mL/min/1.73m2 Severely decreased 15 - 29 mL/min/1.73m2 Kidney Failure < 15 mL/min/1.73m2 *Relative to young adult level Estimated glomerular filtration rate is determined by the 2020 CKD-EPI equation recommended by the National Kidney Foundation (A Unifying Approach to GFR Estimation: Recommendations of the NKF-ASK Task Force on Reassessing the Inclusion of Race in Diagnosing Kidney Disease, JASN 202). The CKD-EPI equation should not be used for patients with unstable renal function and has not been validated in children and those over 70. Current interpretive data was last reviewed 2021. Blood 02/22/2025 3:34 AM CDT 02/22/2025 3:53 AM CDT Jesenia Harris MD LAB BLOOD ORDERABLES Final Re sult SHAHANA RODRIGUEZ [address] [place] [address] * (ABNORMAL) CBC without differential (02/22/2025 3:34 AM CDT) WBC 10.39(H) 3.80 - 9.90 K/cumm Hgb 13.9 11.9 - 15.5 g/dL [facility] Hct 43.2 35.6 - 45.5 % [facility] Plt 317 150 - 400 K/cumm [facility] MPV 11.3 9.1 - 12.3 fL [facility] RBC 4.34 3.90 - 5.20 M/cumm [facility] MCV 99.5(H) 81.3 - 96.4 fL [facility] MCH 32.0 27.1 - 33.3 pg [facility] MCHC 32.2(L) 32.3 - 35.7 g/dL [facility] RDW CV 14.0 11.1 - 14.9 % [facility] RDW SD 51.3(H) 35.7 - 48.1 fL [facility] NRBC abs 0.00 0.00 - 0.01 K/cumm [facility] Blood 02/22/2025 3:34 AM CDT 02/22/2025 3:53 AM CDT us Jesenia Harris MD LAB BLOOD ORDERABLES Final Re sult [facility] [address] Department [place] [address] * (ABNORMAL) Basic metabolic panel (02/22/2025 3:34 AM CDT) Pathologist [facility] Sodium 140 135 - 145 mmol/L Potassium, pl 4.3 3.3 - 4.9 mmol/L [facility] Chloride 110 97 - 110 mmol/L [facility] CO2 19(L) 22 - 32 mmol/L [facility] Anion gap 11 2 - 15 mmol/L [facility] BUN 23 6 - 25 mg/dL [facility] Creatinine 0.81 0.60 - 1.10 mg/dL [facility] Glucose 89 70 - 199 mg/dL [facility] Comment: Interpretive Data Fasting glucose >/= 126 mg/dl is diagnostic for diabetes. Fasting is defined as no caloric intake for at least 8 hours. Fasting glucose between 100 mg/dl to 125 mg/dl is diagnostic of prediabetes. In a patient with classic symptoms of hyperglycemia or hyperglycemic crisis, a random glucose >/= 200 mg/dl is diagnostic for diabetes. In the absence of unequivocal hyperglycemia, results should be confirmed by repeat testing. The classification and Diagnosis of Diabetes Diabetes Care 202; 46: S19-S40. Current interpretive data was last revised 2022. Calcium 9.0 8.5 - 10.3 mg/dL SHAHANA RODRIGUEZ Blood 02/22/2025 3:34 AM CDT 02/22/2025 3:53 AM CDT us Jesenia Harris MD LAB BLOOD ORDERABLES Final Re sult SHAHANA RODRIGUEZ [address] Department [place] [address] * ND CRITICAL CARE ILL/INJURED PATIENT INIT 30-74 MIN (02/21/2025 7:34 AM CDT) Narrative Leydi Mcelroy MD - 02/21/2025 7:34 AM CDT Leydi Mcelroy MD 02/21/2025 9:05 PM Critical Care Performed by: Leydi Mcelroy MD Authorized by: Leydi Mcelroy MD Critical care provider statement: As reflected in the history, physical exam, orders, notes, and/or MDM, I was personally present while the patient was critically ill and provided critical care services for 37 minutes, excluding time involved in separately billable procedures. Critical care was necessary to treat or prevent imminent or life-threatening deterioration of the following condition(s): tachy/mark arrhythmic event Heart block Critical care was time spent by me providing the following: continuous telemetry, continuous pulse oximetry and interpretation of bedside monitors, imaging, and arterial/venous lab draws I provided emergent necessary critical care medicine services to this patient. I ordered and reviewed test results and/or imaging studies. I spent time discussing the management of this critically ill patient with consultants and the medical staff. I spent time discussing the management and therapeutic options for this critically ill patient with the patient themselves or with the appropriate designated surrogate decision-maker. I spent time documenting in the medical record. I admitted this patient to a continuous cardiac monitored bed. Leydi Mcelroy MD IN CLINIC/BEDSIDE ORD ERABLES Edited Result - Final * (ABNORMAL) Troponin T high-sensitivity 6-hour (02/21/2025 6:36 AM CDT) Trop T hs 19(H) <=14 ng/L Comment: Interpretive Data For further hscTnT resources including the diagnostic algorithm and an aid in interpretation, copy and paste this link: [email or web address] Systems.org/show/hsTrop Current Interpretive Data last revised 2020. Trop T hs delta -2 ng/L [facility] Trop T hs interp Insignificant [facility] Blood 02/21/2025 6:36 AM CDT 02/21/2025 6:50 AM CDT Leydi Mcelroy MD LAB BLOOD ORDERABLES Final Result Performing Organization Address City/[facility]/ZIP Co de Phone Number SHAHANA [address] [place] [address] * Potassium (02/21/2025 6:36 AM CDT) Pathologist [facility] Potassium, pl 4.8 3.3 - 4.9 mmol/L Blood 02/21/2025 6:36 AM CDT 02/21/2025 6:50 AM CDT Leydi Mcelroy MD LAB BLOOD ORDERABLES Final Result Performing Organization Address [facility] Co de Phone Number [facility] [address] [place] [address] * (ABNORMAL) Troponin T high-sensitivity 4-hour (02/21/2025 4:29 AM CDT) Trop T hs 19(H) <=14 ng/L Comment: Interpretive Data For further hscTnT resources including the diagnostic algorithm and an aid in interpretation, copy and paste this link: https://nrl.testcatalog.org/show/hsTrop Current Interpretive Data last revised 2020. Trop T hs delta -2 ng/L SHAHANA Trop T hs interp Insignificant SHAHANA Blood 02/21/2025 4:29 AM CDT 02/21/2025 4:32 AM CDT Leydi Mcelroy MD LAB BLOOD ORDERABLES Final Result Performing Organization Address City/[facility]/ZIP Co de Phone Number SHAHANA RODRIGUEZ [address] [place] [address] * (ABNORMAL) eGFR (02/21/2025 4:29 AM CDT) eGFR 51(L) >=60 mL/min/1. 73 m2 Comment: Interpretive Data Reference Interval Normal >/= 90 mL/min/1.73m2 Mildly decreased* 60 - 89 mL/min/1.73m2 Mildly to moderately decreased 45 - 59 mL/min/1.73m2 Moderately to severely decreased 30 - 44 mL/min/1.73m2 Severely decreased 15 - 29 mL/min/1.73m2 Kidney Failure < 15 mL/min/1.73m2 *Relative to young adult level Estimated glomerular filtration rate is determined by the 2020 CKD-EPI equation recommended by the National Kidney Foundation (A Unifying Approach to GFR Estimation: Recommendations of the NKF-ASK Task Force on Reassessing the Inclusion of Race in Diagnosing Kidney Disease, JASN 202). The CKD-EPI equation should not be used for patients with unstable renal function and has not been validated in children and those over 70. Current interpretive data was last reviewed 2021. Blood 02/21/2025 4:29 AM CDT 02/21/2025 4:31 AM CDT Jesenia Harris MD LAB BLOOD ORDERABLES Final Re sult Performing Organization Address City/[facility]/ZIP Co de Phone Number SHAHANA RODRIGUEZ [address] [employer] [place], [place] [id number] * (ABNORMAL) CBC without differential (02/21/2025 4:29 AM CDT) WBC 11.56(H) 3.80 - 9.90 K/cumm Hgb 12.6 11.9 - 15.5 g/dL [facility] Hct 39.4 35.6 - 45.5 % [facility] Plt 296 150 - 400 K/cumm [facility] MPV 11.0 9.1 - 12.3 fL [facility] RBC 3.92 3.90 - 5.20 M/cumm [facility] MCV 100.5(H) 81.3 - 96.4 fL [facility] MCH 32.1 27.1 - 33.3 pg [facility] MCHC 32.0(L) 32.3 - 35.7 g/dL [facility] RDW CV 14.0 11.1 - 14.9 % [facility] RDW SD 51.8(H) 35.7 - 48.1 fL [facility] NRBC abs 0.00 0.00 - 0.01 K/cumm [facility] Blood 02/21/2025 4:29 AM CDT 02/21/2025 4:33 AM CDT us Jesenia Harris MD LAB BLOOD ORDERABLES Final Re sult [facility] [id number] Department [place] [address] * (ABNORMAL) Basic metabolic panel (02/21/2025 4:29 AM CDT) Pathologist [facility] Sodium 141 135 - 145 mmol/L Potassium, pl 4.9 3.3 - 4.9 mmol/L [facility] Chloride 110 97 - 110 mmol/L [facility] CO2 21(L) 22 - 32 mmol/L [facility] Anion gap 10 2 - 15 mmol/L [facility] BUN 32(H) 6 - 25 mg/dL [facility] Creatinine 1.06 0.60 - 1.10 mg/dL [facility] Glucose 101 70 - 199 mg/dL [facility] Comment: Interpretive Data Fasting glucose >/= 126 mg/dl is diagnostic for diabetes. Fasting is defined as no caloric intake for at least 8 hours. Fasting glucose between 100 mg/dl to 125 mg/dl is diagnostic of prediabetes. In a patient with classic symptoms of hyperglycemia or hyperglycemic crisis, a random glucose >/= 200 mg/dl is diagnostic for diabetes. In the absence of unequivocal hyperglycemia, results should be confirmed by repeat testing. The classification and Diagnosis of Diabetes Diabetes Care 2021; 46: S19-S40. Current interpretive data was last revised 2022. Calcium 9.0 8.5 - 10.3 mg/dL SHAHANA Blood 02/21/2025 4:29 AM CDT 02/21/2025 4:31 AM CDT Jesenia Harris MD LAB BLOOD ORDERABLES Final Re sult Performing Organization Address [facility] Co de Phone Number SHAHANA [address] [place] [address] * Folate (02/21/2025 4:12 AM CDT) Folic acid >20.0 >=5.0 ng/mL Comment:Hemolysis present. R esults may be affected. Blood 02/21/2025 4:12 AM CDT 02/21/2025 4:12 AM CDT Jesenia Harris MD LAB BLOOD ORDERABLES Final Re sult Performing Organization Address [facility] Co de Phone Number SHAHANA [address] [place] [address] * Vitamin B12 (02/21/2025 4:12 AM CDT) Vitamin B12 509 230 - 1,250 pg/mL Blood 02/21/2025 4:12 AM CDT 02/21/2025 4:12 AM CDT Jesenia Harris MD LAB BLOOD ORDERABLES Final Re sult Performing Organization Address [facility] Co de Phone Number [facility] [address] [address] [place] [address] * Potassium (02/21/2025 3:11 AM CDT) Potassium, pl 4.8 3.3 - 4.9 mmol/L Blood 02/21/2025 3:11 AM CDT 02/21/2025 3:11 AM CDT Leydi Mcelroy MD LAB BLOOD ORDERABLES Final Result Performing Organization Address [facility] de Phone Number SHAHANA RODRIGUEZ [address] [place] [address] * (ABNORMAL) Troponin T high-sensitivity 2-hour (02/21/2025 1:58 AM CDT) Trop T hs 20(H) <=14 ng/L Comment: Interpretive Data For further hscTnT resources including the diagnostic algorithm and an aid in interpretation, copy and paste this link: https://nrl.testcatalog.org/show/hsTrop Current Interpretive Data last revised 2020. Trop T hs delta -1 ng/L [facility] Trop T hs interp Insignificant [facility] Blood 02/21/2025 1:58 AM CDT 02/21/2025 2:08 AM CDT Leydi Mcelroy MD LAB BLOOD ORDERABLES Final Result Performing Organization Address [facility] Co de Phone Number SHAHANA RODRIGUEZ [address] [place] [address] * XR Chest 1 Vw Portable (02/21/2025 12:15 AM CDT) Anatomical Region Laterality Modality Body, Chest N/A Computed Radiogr aphy 02/21/2025 11:4 6 AM CDT Impressions 02/21/2025 11:46 AM CDT No focal opacity suggestive of mass or pneumonia. No pleural effusion or pneumothorax. Cardiomediastinal silhouette is normal. Electronically signed by: Tj Bajwa M.D. Narrative 02/21/2025 11:46 AM CDT EXAMINATION: XR CHEST 1 VIEW HISTORY: syncope Procedure Note Tj Bajwa MD - 02/21/2025 EXAMINATION: XR CHEST 1 VIEW HISTORY: syncope IMPRESSION: No focal opacity suggestive of mass or pneumonia. No pleural effusion or pneumothorax. Cardiomediastinal silhouette is normal. Electronically signed by: Tj Bajwa M.D. us Leydi Mcelroy MD IMG XR PROCEDURES Fin al Result * (ABNORMAL) Troponin T high-sensitivity series (baseline, 2hr, 4hr, 6hr) (02/20/2025 11:51 PM CDT) Trop T hs 21(H) <=14 ng/L Comment: Interpretive Data For further hscTnT resources including the diagnostic algorithm and an aid in interpretation, copy and paste this link: https://nrl.testcatalog.org/show/hsTrop Current Interpretive Data last revised 2020. Blood 02/20/2025 11:5 1 PM CDT 02/20/2025 11:54 PM CDT us Leydi Mcelroy MD LAB BLOOD ORDERABLES Final Result [facility] [address] Department [place] [address] * (ABNORMAL) eGFR (02/20/2025 11:51 PM CDT) eGFR 39(L) >=60 mL/min/1. 73 m2 Comment: Interpretive Data Reference Interval Normal >/= 90 mL/min/1.73m2 Mildly decreased* 60 - 89 mL/min/1.73m2 Mildly to moderately decreased 45 - 59 mL/min/1.73m2 Moderately to severely decreased 30 - 44 mL/min/1.73m2 Severely decreased 15 - 29 mL/min/1.73m2 Kidney Failure < 15 mL/min/1.73m2 *Relative to young adult level Estimated glomerular filtration rate is determined by the 2020 CKD-EPI equation recommended by the National Kidney Foundation (A Unifying Approach to GFR Estimation: Recommendations of the NKF-ASK Task Force on Reassessing the Inclusion of Race in Diagnosing Kidney Disease, JASN 2020). The CKD-EPI equation should not be used for patients with unstable renal function and has not been validated in children and those over 70. Current interpretive data was last reviewed 2021. Blood 02/20/2025 11:5 1 PM CDT 02/21/2025 12:43 AM CDT us Leydi Mcelroy MD LAB BLOOD ORDERABLES Final Result SHAHANA [address] Department [place] [address] * (ABNORMAL) Differential, auto (02/20/2025 11:51 PM CDT) Neutrophil abs 5.94 1.50 - 6.50 K/cumm Imm gran abs 0.05 0.00 - 0.10 K/cumm [facility] Lymphocyte abs 1.99 0.80 - 3.30 K/cumm [facility] Monocyte abs 1.57(H) 0.20 - 0.80 K/cumm [facility] Eosinophil abs 0.20 0.00 - 0.50 K/cumm [facility] Basophil abs 0.08 0.00 - 0.10 K/cumm [facility] Neutrophil pct 60.5 % [facility] Comment: Interpretive Data Percent cell count reference ranges are not reported, since discordance with absolute values may lead to misinterpretation of CBC data. Current Interpretive Data was last revised on 2017. Imm gran pct 0.5 % SHAHANA Comment: Interpretive Data Percent cell count reference ranges are not reported, since discordance with absolute values may lead to misinterpretation of CBC data. Current Interpretive Data was last revised on 2017. Lymphocyte pct 20.2 % SHAHANA Comment: Interpretive Data Percent cell count reference ranges are not reported, since discordance with absolute values may lead to misinterpretation of CBC data. Current Interpretive Data was last revised on 2017. Monocyte pct 16.0 % SHAHANA Comment: Interpretive Data Percent cell count reference ranges are not reported, since discordance with absolute values may lead to misinterpretation of CBC data. Current Interpretive Data was last revised on 2017. Eosinophil pct 2.0 % SHAHANA Comment: Interpretive Data Percent cell count reference ranges are not reported, since discordance with absolute values may lead to misinterpretation of CBC data. Current Interpretive Data was last revised on 2017. Basophil pct 0.8 % SHAHANA Comment: Interpretive Data Percent cell count reference ranges are not reported, since discordance with absolute values may lead to misinterpretation of CBC data. Current Interpretive Data was last revised on 2017. Blood 02/20/2025 11:5 1 PM CDT 02/20/2025 11:54 PM CDT Leydi Mcelroy MD LAB BLOOD ORDERABLES Final Result SHAHANA [address] Department [place] [address] * (ABNORMAL) Pro B-type natriuretic peptide (02/20/2025 11:51 PM CDT) NT-proBNP 582(H) <=450 pg/mL Comment: Interpretive Comments: A. Dyspnea in Acute Care Setting All Ages: < 300 pg/ml, acute heart failure unlikely. < 50 yrs: 300 - 450 pg/ml, further investigation warranted. > 450 pg/ml, acute heart failure likely. 50 - 74 yrs: 300 - 900 pg/ml, further investigation warranted. > 900 pg/ml, acute heart failure likely . > or = 75 yrs: 450 - 1800 pg/ml, further investigation warranted. > 1800 pg/ml, acute heart failure likely. B. Non-acute Setting < 75 yrs < 125 pg/ml, rules out heart failure. > or = 125 pg/ml, further investigation warranted. > or = 75 yrs < 450 pg/ml, rules out heart failure. > or = 450 pg/ml, further investigation warranted. - Knowledge of each individual patient's NT-proBNP range may be more useful than using similar cut-points for every patient. Please note that marked elevations in NT-proBNP levels may be observed in state other than Left Ventricular Congestive Failure, including: acute coronary syndromes, right heart strain/failure (including pulmonary embolism and cor pulmonale), critical illness, renal failure, as well as advanced age. - References: 1. Yazan TREVINO et.al. Eur Heart J. 2006:27:330-337. 2. Tae RW, Stephanie LANGE. J. AM Lacy Cardiol: Cardiovasc Imag. 2009;2: 216- 225. Interpretive Data Last Revised Date: 2018. Blood 02/20/2025 11:5 1 PM CDT 02/20/2025 11:54 PM CDT Leydi Mcelroy MD LAB BLOOD ORDERABLES Final Result Performing Organization Address [facility] Co de Phone Number SHAHANA RODRIGUEZ [address] [place] [address] * Thyroid Function [place] (02/20/2025 11:51 PM CDT) Pathologist [facility] TSH 1.61 0.30 - 4.20 mcIUnit/mL Blood 02/20/2025 11:5 1 PM CDT 02/20/2025 11:54 PM CDT Leydi Mcelroy MD LAB BLOOD ORDERABLES Edited Result - Final Performing Organization Address [facility] Co de Phone Number SHAHANA RODRIGUEZ [address] [place] [address] * (ABNORMAL) CBC with auto differential (02/20/2025 11:51 PM CDT) Pathologist [facility] WBC 9.83 3.80 - 9.90 K/cumm Hgb 12.9 11.9 - 15.5 g/dL [facility] Hct 40.5 35.6 - 45.5 % [facility] Plt 305 150 - 400 K/cumm [facility] MPV 11.1 9.1 - 12.3 fL [facility] RBC 3.99 3.90 - 5.20 M/cumm [facility] MCV 101.5(H) 81.3 - 96.4 fL [facility] MCH 32.3 27.1 - 33.3 pg [facility] MCHC 31.9(L) 32.3 - 35.7 g/dL [facility] RDW CV 14.0 11.1 - 14.9 % [facility] RDW SD 52.6(H) 35.7 - 48.1 fL [facility] NRBC abs 0.00 0.00 - 0.01 K/cumm [facility] Blood 02/20/2025 11:5 1 PM CDT 02/20/2025 11:54 PM CDT Leydi Mcelroy MD LAB BLOOD ORDERABLES Final Result [facility] [address] Department [place] [address] * (ABNORMAL) Comprehensive metabolic panel (02/20/2025 11:51 PM CDT) Sodium 138 135 - 145 mmol/L Potassium, pl 5.4(H) 3.3 - 4.9 mmol/L [facility] Chloride 105 97 - 110 mmol/L [facility] CO2 21(L) 22 - 32 mmol/L [facility] Anion gap 12 2 - 15 mmol/L [facility] BUN 37(H) 6 - 25 mg/dL [facility] Creatinine 1.33(H) 0.60 - 1.10 mg/dL [facility] Glucose 99 70 - 199 mg/dL [facility] Comment: Interpretive Data Fasting glucose >/= 126 mg/dl is diagnostic for diabetes. Fasting is defined as no caloric intake for at least 8 hours. Fasting glucose between 100 mg/dl to 125 mg/dl is diagnostic of prediabetes. In a patient with classic symptoms of hyperglycemia or hyperglycemic crisis, a random glucose >/= 200 mg/dl is diagnostic for diabetes. In the absence of unequivocal hyperglycemia, results should be confirmed by repeat testing. The classification and Diagnosis of Diabetes Diabetes Care 2021; 46: S19-S40. Current interpretive data was last revised 2022. Calcium 9.0 8.5 - 10.3 mg/dL [facility] Bilirubin, total 0.2 0.1 - 1.2 mg/dL [facility] Protein, pl 6.8 6.5 - 8.5 g/dL [facility] Albumin 4.0 3.5 - 5.0 g/dL [facility] Alk phos 69 40 - 130 Units/L [facility] ALT 22 7 - 45 Units/L [facility] AST 20 10 - 45 Units/L [facility] Blood 02/20/2025 11:5 1 PM CDT 02/20/2025 11:54 PM CDT Leydi Mcelryo MD LAB BLOOD ORDERABLES Edited Result - Final Performing Organization Address City/[facility]/ZIP Co de Phone Number SHAHANA [address] [address] Department [place] [address] * ECG 12 lead (02/20/2025 11:50 PM CDT) 02/20/2025 11:5 0 PM CDT Narrative [facility] - 02/21/2025 1:49 PM CDT Vent Rate: 48 bpm RR Interval: 1249 msec ND Interval: 199 msec QRS Duration: 145 msec QT Interval: 481 msec QTC Interval: 446 msec P-R-T Rainbow: -75 - -48 - 18 degrees IMPRESSION: SINUS BRADYCARDIA RIGHT BUNDLE BRANCH BLOCK [120+ ms QRS DURATION, UPRIGHT V1, 40+ ms S IN I/aVL/V4/V5/V6] LEFT ANTERIOR FASCICULAR BLOCK [QRS AXIS <= -45, QR IN I, RS IN II] VOLTAGE CRITERIA FOR LVH [MEETS CRITERIA IN ONE OF: R(aVL), S(V1), R(V5), R(V5/V6)+S(V1)] POSSIBLE SEPTAL MYOCARDIAL INFARCTION , OF INDETERMINATE AGE [30 ms Q WAVE IN V1/V2] ABNORMAL ECG SINUS BRADYCARDIA IS NEW Electronically Signed By: Daniela Morrow MD us Leydi Mcelroy MD ECG ORDERABLES Final Result Performing Organization Address City/[facility]/ZIP Co de Phone Number [facility] from Last 3 Months [facility] MEDICARE [facility] MEDICARE AETNA MEDICARE Advance Directives For more information, please contact: [phone] * Full Code (Latest Code Status on File) Date Activated Date Inactivated Comments 02/21/2025 3:52 AM 02/28/2025 5:08 PM * Full Code Date Activated Date Inactivated Comments 05/11/2024 12:37 PM 05/17/2024 5:33 PM * Full Code Date Activated Date Inactivated Comments 05/29/2022 4:04 PM 06/07/2022 12:38 AM * Full Code Date Activated Date Inactivated Comments 04/09/2022 5:31 PM 04/14/2022 3:36 PM Care Teams Computer Typesetter Relationship Specialty Start Date End [place] [address] PCP - General 08/31/16
--- OUTSIDE RECORDS SUMMARY | 2025-04-08 20:35 | XMS_ITS | Clinical Summary ---
Author Organization [facility] Address [address] [place] [address] Phone Care Team Providers Care Switch Coupler Name Role Phone Long Gao MD Primary Care Provider [phone] Allergies No known active allergies Medications lisinopril (PRINIVIL, ZESTRIL) 20 MG Tablet Take 10 mg by mouth daily. 05/29/2024 Active Dexlansoprazole (Dexilant) 60 MG CAPSULE DELAYED RELEASE Take 1 Capsule by mouth 2 times daily. 05/29/2024 Active Misc Natural Products (Blood Sugar Balance) Tablet Take 1 Tablet by mouth daily. 05/29/2024 Active Ascorbic Acid (Vitamin C) 1000 MG Tablet Take 1 Tablet by mouth daily. 05/29/2024 Active Garlic 400 MG Tablet Take 1 Tablet by mouth daily. 05/29/2024 Active thiamine (VITAMIN B1) 100 MG Tablet Take 100 mg by mouth daily. 05/29/2024 Active POTASSIUM CITRATE PO Take 99 mg by mouth daily. 05/29/2024 Active vitamin E (TOCOPHEROL) 400 UNIT Capsule Take 400 Units by mouth daily. 05/29/2024 Active Turmeric 500 MG Capsule Take 1 Tablet by mouth daily. 05/29/2024 Active Magnesium 300 MG Capsule Take 1 Capsule by mouth daily. 05/29/2024 Active CALCIUM CITRATE PO Take 1 Capsule by mouth daily. 05/29/2024 Active Multiple Vitamins-Minera ls (OCULAR VITAMINS PO) Take 1 Capsule by mouth daily. 05/29/2024 Active aspirin EC 81 MG Tablet Delayed Response Take 81 mg by mouth daily. Active atorvastatin (LIPITOR) 40 MG Tablet Take 40 mg by mouth nightly. Active brinzolamide (AZOPT) 1 % Suspension Place 1 Drop in right eye in the morning and at bedtime. Active Cholestyramine Powder Take 4 g by mouth 2 times daily. Active latanoprost (Xalatan) 0.005 % Solution Place 1 Drop in right eye daily. 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 Gender Identity Not on file Sexual Orientation Not on file Last Filed Vital Signs Vital Sign Reading Time Taken Comments Blood Pressure 122/66 07/07/2024 12:55 PM LSAT INSTRUCTOR Pulse 86 07/07/2024 12:55 PM LSAT INSTRUCTOR Temperature 36.7 C (98 F) 07/07/2024 12:55 PM LSAT INSTRUCTOR Respiratory Rate 16 07/07/2024 12:55 PM LSAT INSTRUCTOR Oxygen Saturation 97% 07/07/2024 12:55 PM LSAT INSTRUCTOR Inhaled Oxygen Concentration - - Weight - - Height 170.2 cm (5' 7) 06/11/2024 4:29 PM LSAT INSTRUCTOR Body Mass Index - - Plan of Treatment Health Maintenance Due Date Last Done Comments DEXA Bone Density 1935 Hepatitis C Virus (HCV) Screening 1935 TdaP Immunization 1935 Pneumococcal Immunization (50+ years) (1 of 1 - PCV) 1987 Zoster Immunization (1 of 2) 1987 Respiratory Syncytial Virus (RSV) Immunization (Adult) (1 - 1-dose 75+ series) 2012 Medicare Initial AWV [id number] 06/03/2024 Influenza Immunization (#1) 02/01/202502/01, 02/26/2023, 06/06/2022, Additional history exists SARS-COV-2 Immunization ( season) 2025 04/24/2023, 06/13/2022, 10/04/2021, Additional history exists Hepatitis B Immunization Aged Out No longer eligible based on patient's age to complete this topic Human Papillomavirus (HPV) Immunization Aged Out No longer eligible based on patient's age to complete this topic Meningococcal Immunization (ACWY) Aged Out No longer eligible based on patient's age to complete this topic Rotavirus Immunization Aged Out No lo nger eligible based on patient's age to complete this topic Insurance MEDICARE C AETNA Advance Directives * Full Code (Latest Code Status on File) Date Activated Date Inactivated Comments 06/08/2024 3:16 PM Care Teams Switch Coupler Relationship Specialty Start Date End [place] [address] PCP - General Internal Medicine 05/25/24
== END 2025-04-08 14:38 | disposition home or self-care (01) ==
LOC: CHSIMG 14:39
PROVIDERS: PCP Internal Medicine; Visit Provider Orthopaedic Surgery
DX: M25.562 Pain in left knee (principal); M97.12XD 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, subsequent encounter
CPT/HCPCS: 73564; 73590